=== PATIENT | female | born 1945 | race Caucasian/White ===

== ENCOUNTER 2019-12-25 13:06 | Outpatient (CLI) | payer MEDICARE, SELFPAY ==
[2019-12-25 14:04] LABS: Basophils Absolute Auto 0.1 K/mm3 (0.0-0.1); Eosinophils Absolute Auto 0.2 K/mm3 (0-0.3); Hematocrit 40.3 % (37.0-47.0); Immature Granulocyte Absolute 0.01 K/mm3 (0.00-0.031); Immature Granulocyte Percent A 0.2 % (0-0.5); Lymphocytes Absolute Auto 0.86 K/mm3 (0.9-3.2); Lymphocytes Percent Auto 17.4 % (18.3-44.2); Mean Corpuscular HGB Conc 32.3 g/dl (32-36); Mean Corpuscular Hemoglobin 28.4 pg (26-34); Mean Corpuscular Volume 88.2 fl (80-100); Mean Platelet Volume 11.2 fl (7.4-10.4); Monocytes Absolute Auto 0.5 K/mm3 (0.1-0.6); Monocytes Percent Auto 10.5 % (2.6-8.5); Neutrophils Absolute Auto 3.3 K/mm3 (1.3-6.7); Neutrophils Percent Auto 67.9 % (45.5-73.1); Platelet Count Result 181 k/mm3 (150-375); Red Blood Count 4.57 M/mm3 (4.2-5.4); Red Cell Distribution Width 13.5 % (11.5-14.5); White Blood Count 4.9 K/mm3 (4.5-10.0)
[2019-12-25 14:10] LABS: Total Protein Urine Random 12 mg/dL
[2019-12-25 14:15] LABS: Add Urine Microscopic? YES; Appearance Urine Clear (Clear); Bilirubin Urine Negative (Negative); Blood Urine Negative (Negative); Color Urine Yellow (Yellow); Glucose Urine UA 3+ mg/dL (Negative); Hyaline Casts Urine 50+ /lpf; Ketones Urine Negative (Negative); Leukocyte Esterase Ur 1+ LEU/UL (Negative); Mucus Urine Rare /lpf; Nitrate Urine Negative (Negative); Protein Urine Negative (Negative); RBC Urine 0-2 /hpf (0-2); Specific Grav Ur 1.026 (1.001-1.035); Squamous Epithelial Cell Urine Occasional /hpf (Few); Urobilinogen Urine Negative mg/dL (<2.0); WBC Urine 21-30 /hpf
[2019-12-25 14:17] LABS: Albumin Level 3.9 g/dL (3.5-5.1); Blood Urea Nitrogen 28 mg/dL (7-17); Calcium 9.3 mg/dL (8.4-10.2); Carbon Dioxide 26 mmol/L (22-30); Chloride 99 mmol/L (98-107); Estimated Glomerular Filt Rate 44; Glucose 431 mg/dL (65-105); Phosphorus 3.8 mg/dL (2.5-4.5); Sodium 133 mmol/L (137-145); Uric Acid 3.1 mg/dL (2.5-7.5)
[2019-12-25 14:27] LABS: Parathyroid Intact 30.1 pg/mL (7.5-53.5)
== END 2019-12-25 13:07 | disposition home or self-care (01) ==
DX: N18.3 Chronic kidney disease, stage 3 (moderate) (principal); E11.65 Type 2 diabetes mellitus with hyperglycemia; I50.9 Heart failure, unspecified; I63.9 Cerebral infarction, unspecified; E03.9 Hypothyroidism, unspecified; E55.9 Vitamin D deficiency, unspecified
CPT/HCPCS: 36415; 80069; 81001; 82306; 82570; 83970; 84156; 84550; 85025; 87077; 87086; 87088; 87186

== ENCOUNTER 2020-04-12 16:09 | Outpatient (CLI) | payer MEDICARE, SELFPAY ==
[2020-04-12 16:41] LABS: Basophils Percent Auto 0.7 % (0.2-1.2); Eosinophils Absolute Auto 0.2 K/mm3 (0-0.3); Eosinophils Percent Auto 4.7 % (0-4.4); Hematocrit 40.4 % (37.0-47.0); Hemoglobin 12.7 g/dL (12.0-15.0); Immature Granulocyte Absolute 0.02 K/mm3 (0.00-0.031); Immature Granulocyte Percent A 0.5 % (0-0.5); Lymphocytes Absolute Auto 0.72 K/mm3 (0.9-3.2); Lymphocytes Percent Auto 17.9 % (18.3-44.2); Mean Corpuscular HGB Conc 31.4 g/dl (32-36); Mean Corpuscular Hemoglobin 27.1 pg (26-34); Mean Corpuscular Volume 86.3 fl (80-100); Mean Platelet Volume 11.2 fl (7.4-10.4); Monocytes Absolute Auto 0.4 K/mm3 (0.1-0.6); Monocytes Percent Auto 9.2 % (2.6-8.5); Neutrophils Absolute Auto 2.7 K/mm3 (1.3-6.7); Platelet Count Result 155 k/mm3 (150-375); Red Blood Count 4.68 M/mm3 (4.2-5.4); Red Cell Distribution Width 14.5 % (11.5-14.5)
[2020-04-12 16:46] LABS: Add Urine Microscopic? YES; Amorphous Sediment Urine Few; Appearance Urine Clear (Clear); Bacteria Urine Trace /hpf; Bilirubin Urine Negative (Negative); Blood Urine Negative (Negative); Color Urine Yellow (Yellow); Glucose Urine UA 3+ mg/dL (Negative); Ketones Urine Negative (Negative); Leukocyte Esterase Ur 1+ LEU/UL (Negative); Mucus Urine Rare /lpf; Nitrate Urine Positive (Negative); Protein Urine 1+ mg/dL (Negative); RBC Urine 0-2 /hpf (0-2); Specific Grav Ur 1.018 (1.001-1.035); Squamous Epithelial Cell Urine Occasional /hpf (Few); Urobilinogen Urine Negative mg/dL (<2.0)
[2020-04-12 16:53] LABS: Albumin Level 4.1 g/dL (3.5-5.1); Blood Urea Nitrogen 25 mg/dL (7-17); Calcium 9.1 mg/dL (8.4-10.2); Carbon Dioxide 28 mmol/L (22-30); Chloride 101 mmol/L (98-107); Estimated Glomerular Filt Rate 40; Glucose 354 mg/dL (65-105); Phosphorus 3.8 mg/dL (2.5-4.5); Potassium 4.5 mmol/L (3.4-5.0); Sodium 136 mmol/L (137-145); Uric Acid 4.7 mg/dL (2.5-7.5)
[2020-04-12 17:03] LABS: Creatinine Urine 180.5 mg/dL; Total Protein Urine Random 10 mg/dL
[2020-04-12 17:16] LABS: Parathyroid Intact 54.1 pg/mL (7.5-53.5)
[2020-04-12 18:24] LABS: Vitamin D 25 Hydroxy 73.7 ng/mL
== END 2020-04-12 16:10 | disposition home or self-care (01) ==
DX: E03.9 Hypothyroidism, unspecified (principal); E55.9 Vitamin D deficiency, unspecified; N18.3 Chronic kidney disease, stage 3 (moderate); E11.65 Type 2 diabetes mellitus with hyperglycemia; I50.9 Heart failure, unspecified; I63.9 Cerebral infarction, unspecified
CPT/HCPCS: 36415; 80069; 81001; 82306; 82570; 83970; 84156; 84550; 85025; 87086; 87088; 87147; 87186

== ENCOUNTER 2020-07-23 13:48 | Outpatient (CLI) | payer MEDICARE, SELFPAY ==
[2020-07-23 14:27] LABS: Basophils Percent Auto 0.4 % (0.2-1.2); Eosinophils Absolute Auto 0.2 K/mm3 (0-0.3); Eosinophils Percent Auto 4.3 % (0-4.4); Hematocrit 42.8 % (37.0-47.0); Immature Granulocyte Absolute 0.03 K/mm3 (0.00-0.031); Immature Granulocyte Percent A 0.5 % (0-0.5); Lymphocytes Absolute Auto 1.29 K/mm3 (0.9-3.2); Lymphocytes Percent Auto 22.9 % (18.3-44.2); Mean Corpuscular HGB Conc 32.7 g/dl (32-36); Mean Corpuscular Hemoglobin 28.1 pg (26-34); Mean Corpuscular Volume 85.9 fl (80-100); Monocytes Absolute Auto 0.4 K/mm3 (0.1-0.6); Monocytes Percent Auto 7.8 % (2.6-8.5); Neutrophils Absolute Auto 3.6 K/mm3 (1.3-6.7); Neutrophils Percent Auto 64.1 % (45.5-73.1); Platelet Count Result 138 k/mm3 (150-375); Red Blood Count 4.98 M/mm3 (4.2-5.4); Red Cell Distribution Width 14.6 % (11.5-14.5); White Blood Count 5.6 K/mm3 (4.5-10.0)
[2020-07-23 14:42] LABS: Anion Gap 9 mmol/L (8-16); Blood Urea Nitrogen 33 mg/dL (7-17); Calcium 9.3 mg/dL (8.4-10.2); Carbon Dioxide 31 mmol/L (22-30); Chloride 96 mmol/L (98-107); Estimated Glomerular Filt Rate 40; Glucose 341 mg/dL (65-105); Phosphorus 3.3 mg/dL (2.5-4.5); Potassium 4.2 mmol/L (3.4-5.0); Sodium 136 mmol/L (137-145); Uric Acid 4.1 mg/dL (2.5-7.5)
[2020-07-23 14:43] LABS: Creatinine Urine 208.1 mg/dL; Total Protein Urine Random 11 mg/dL
[2020-07-23 14:49] LABS: Add Urine Microscopic? YES; Amorphous Sediment Urine Few; Appearance Urine Clear (Clear); Bacteria Urine Trace /hpf; Bilirubin Urine Negative (Negative); Blood Urine Negative (Negative); Color Urine Yellow (Yellow); Glucose Urine UA 3+ mg/dL (Negative); Hyaline Casts Urine 30-49 /lpf; Ketones Urine Negative (Negative); Leukocyte Esterase Ur 2+ LEU/UL (Negative); Mucus Urine Rare /lpf; Nitrate Urine Negative (Negative); Protein Urine 1+ mg/dL (Negative); Specific Grav Ur 1.023 (1.001-1.035); Squamous Epithelial Cell Urine Occasional /hpf (Few); WBC Urine 51-75 /hpf
[2020-07-23 15:28] LABS: Parathyroid Intact 60.8 pg/mL (7.5-53.5)
[2020-07-23 15:51] LABS: Vitamin D 25 Hydroxy 68.4 ng/mL
== END 2020-07-23 13:49 | disposition home or self-care (01) ==
DX: E11.22 Type 2 diabetes mellitus with diabetic chronic kidney disease (principal); N18.3 Chronic kidney disease, stage 3 (moderate); E11.65 Type 2 diabetes mellitus with hyperglycemia; I50.9 Heart failure, unspecified; I63.9 Cerebral infarction, unspecified; E03.9 Hypothyroidism, unspecified; E55.9 Vitamin D deficiency, unspecified
CPT/HCPCS: 36415; 80069; 81001; 82306; 82570; 83970; 84156; 84550; 85025; 87077; 87086; 87088; 87186

== ENCOUNTER 2020-10-29 13:20 | Outpatient (CLI) | payer MEDICARE, SELFPAY ==
[2020-10-29 14:01] LABS: Basophils Absolute Auto 0.1 K/mm3 (0.0-0.1); Basophils Percent Auto 0.8 % (0.2-1.2); Eosinophils Absolute Auto 0.2 K/mm3 (0-0.3); Eosinophils Percent Auto 3.4 % (0-4.4); Immature Granulocyte Absolute 0.01 K/mm3 (0.00-0.031); Immature Granulocyte Percent A 0.2 % (0-0.5); Lymphocytes Absolute Auto 1.37 K/mm3 (0.9-3.2); Mean Corpuscular HGB Conc 31.8 g/dl (32-36); Mean Corpuscular Hemoglobin 28.7 pg (26-34); Mean Corpuscular Volume 90.2 fl (80-100); Mean Platelet Volume 12.3 fl (7.4-10.4); Monocytes Absolute Auto 0.5 K/mm3 (0.1-0.6); Monocytes Percent Auto 7.7 % (2.6-8.5); Neutrophils Absolute Auto 4.4 K/mm3 (1.3-6.7); Neutrophils Percent Auto 66.9 % (45.5-73.1); Platelet Count Result 124 k/mm3 (150-375); Red Blood Count 4.88 M/mm3 (4.2-5.4); Red Cell Distribution Width 13.3 % (11.5-14.5); White Blood Count 6.5 K/mm3 (4.5-10.0)
[2020-10-29 14:06] LABS: Add Urine Microscopic? YES; Appearance Urine Clear (Clear); Bacteria Urine Trace /hpf; Bilirubin Urine Negative (Negative); Blood Urine Negative (Negative); Color Urine Straw (Yellow); Glucose Urine UA 3+ mg/dL (Negative); Ketones Urine Negative (Negative); Leukocyte Esterase Ur Trace LEU/UL (Negative); Mucus Urine Rare /lpf; Nitrate Urine Negative (Negative); Protein Urine Negative (Negative); RBC Urine 0-2 /hpf (0-2); Specific Grav Ur 1.015 (1.001-1.035); Squamous Epithelial Cell Urine Rare /hpf (Few); Urobilinogen Urine Negative mg/dL (<2.0)
[2020-10-29 14:11] LABS: Creatinine Urine 26.1 mg/dL; Total Protein Urine Random 12 mg/dL; Ur Ttl Prot Creatinine Ratio 0.46 mg/mg (0-0.20)
[2020-10-29 14:18] LABS: Albumin Level 4.3 g/dL (3.5-5.1); Anion Gap 8 mmol/L (8-16); Blood Urea Nitrogen 21 mg/dL (7-17); Calcium 9.4 mg/dL (8.4-10.2); Carbon Dioxide 30 mmol/L (22-30); Chloride 95 mmol/L (98-107); Estimated Glomerular Filt Rate 44; Glucose 535 mg/dL (65-105); Phosphorus 4.1 mg/dL (2.5-4.5); Potassium 4.6 mmol/L (3.4-5.0); Sodium 133 mmol/L (137-145); Uric Acid 3.2 mg/dL (2.5-7.5)
[2020-10-29 14:26] LABS: Parathyroid Intact 73.3 pg/mL (7.5-53.5)
[2020-10-29 14:33] LABS: Hemoglobin A1C 12.3 % (<5.7)
[2020-10-29 15:43] LABS: Vitamin D 25 Hydroxy 50.9 ng/mL
== END 2020-10-29 13:21 | disposition home or self-care (01) ==
LOC: ANHLAB 13:25
PROVIDERS: Visit Provider Internal Medicine Nephrology
DX: N18.30 Chronic kidney disease, stage 3 unspecified (principal); E11.65 Type 2 diabetes mellitus with hyperglycemia; I50.9 Heart failure, unspecified; I63.9 Cerebral infarction, unspecified; E03.9 Hypothyroidism, unspecified; E55.9 Vitamin D deficiency, unspecified
CPT/HCPCS: 36415; 80069; 81001; 82306; 82570; 83036; 83970; 84156; 84550; 85025

== ENCOUNTER 2020-12-30 08:20 | Emergency (ER) | payer MEDICARE, SELFPAY ==
[2020-12-30] VITALS (14 sets, daily range): BP systolic 99–120; BP diastolic 48–74; PULSE 70–88; RESP 20–22; TEMP 36.8; O2SAT 95–99
--- NOTE | ~2020-12-30 | CT_ITS ---
EXAMINATION: CTA brain carotid EXAM DATE: 12/30/2020 08:37 INDICATION: Right arm hemiparesis. TECHNIQUE: Noncontrast head CT. Spiral CTA of the brain and carotid was performed with intravenous injection 100 cc of Omnipaque 350. Axial, coronal, sagittal reformatted images reviewed. Maximum inte nsity projection 3-D reconstructions of the carotid, cerebral arteries were created by the [address] on dedicated workstation, but there are nondiagnostic. The dose-length product (DLP) for this exa mination was 1562.49 mGy-cm. The exposure was tailored according to patient size, and iterative rec onstruction (ASIR) was used as additional dose reduction technique. Comparison made to prior head C T 08/11/2019 FINDINGS: Moderate size old temporal lobe infarction, small old right frontal, right subinsular, right mesial t emporal, left parietal infarctions. There is no acute intraparenchymal hemorrhage. No evidence of in traparenchymal brain mass lesion. No evidence of acute infarction. There is mild periventricular and subcortical hypodensity, nonspecific but probably related to small vessel ischemic disease. There is moderate prominence of the sulci and ventricles related to cerebral atrophy. There is intracrani al carotid arteriosclerosis. There is no mass effect or midline shift. There is no obstructive hydr ocephalus suspected. There are no extra-axial collections. There are no calvarial acute fractures. Dense contrast within the left subclavian vein and the IVC, and also refluxing up the left internal j ugular vein which could indicate poor right heart function. There is mild left maxillary sinus mucope riosteal thickening. No cervical lymphadenopathy. Moderate cervical spondylosis. Pacemaker/AICD devic e. IMPRESSION: 1. No acute intracranial findings. 2. Multiple old bilateral cerebral infarctions largest in the left temporal lobe. 3. Nondiagnostic CTA brain and carotid. I discussed no acute intracranial findings, and that arteries not evaluated with Greta Archibald MD at 12/30/2020 08:53 [employer]. Patient can be reinjected with repeat imaging if clinically indicated. Reviewed, dictated and finalized at location B. E [employer] OPERATOR IMPRESSION: 1. No acute intracranial findings. 2. Multiple old bilateral cerebral infarctions largest in the left temporal lo be. 3. Nondiagnostic CTA brain and carotid. I discussed no acute intracranial findings, and that arteries not evaluated wit h Greta Archibald MD at 12/30/2020 08:53 [employer] OPERATOR. Patient can be reinjected with repea t imaging if clinically indicated.
--- NOTE | 2020-12-30 08:21 | ECG_ITS ---
Measurements Intervals [place] Rate: 81 P: UT: 0 QRS: 48 QRSD: 106 T: 123 QT: 405 QTc: 473 Interpretive Statements ATRIAL FIBRILLATION VENTRICULAR PREMATURE COMPLEXES LOW QRS VOLTAGE- DIFFUSE LEADS ANTEROSEPTAL INFARCT, AGE INDETERMINATE BORDERLINE ST-T WAVE ABNORMALITY- INF/HIGH LAT LEADS BASELINE ARTIFACT- II, III, AVR, AVL, AVF, V1-V6 ABNORMAL ECG Electronically Signed On 12-30-2020 15:02:32 RECOVERY ROOM RN by Weston Vásquez D.O.
[2020-12-30 08:45] LABS: Glucose Point of Care 293 (65-105)
[2020-12-30 08:54] LABS: Basophils Percent Auto 0.5 % (0.2-1.2); Eosinophils Absolute Auto 0.2 K/mm3 (0-0.3); Eosinophils Percent Auto 3.3 % (0-4.4); Hematocrit 31.7 % (37.0-47.0); Hemoglobin 9.7 g/dL (12.0-15.0); Immature Granulocyte Absolute 0.01 K/mm3 (0.00-0.031); Immature Granulocyte Percent A 0.2 % (0-0.5); Lymphocytes Absolute Auto 1.34 K/mm3 (0.9-3.2); Lymphocytes Percent Auto 22.1 % (18.3-44.2); Mean Corpuscular HGB Conc 30.6 g/dl (32-36); Mean Corpuscular Hemoglobin 28.9 pg (26-34); Mean Corpuscular Volume 94.3 fl (80-100); Monocytes Absolute Auto 0.6 K/mm3 (0.1-0.6); Neutrophils Absolute Auto 3.9 K/mm3 (1.3-6.7); Neutrophils Percent Auto 63.9 % (45.5-73.1); Platelet Count Result 164 k/mm3 (150-375); Red Blood Count 3.36 M/mm3 (4.2-5.4); Red Cell Distribution Width 14.6 % (11.5-14.5); White Blood Count 6.1 K/mm3 (4.5-10.0)
--- NOTE | 2020-12-30 08:57 | ED.NEUROSD ---
HPI - Neuro Symptoms/Deficit General Chief Complaint: Suspected CVA Stated Complaint: ?CVA Time Seen by Provider: 12/30/20 08:24 Source: patient History of Present Illness HPI Narrative: Patient is a 75 y/o female complaining of difficulty with speech and right sided weakness starting 1-2 hours ago. She states that she felt fine when she went to bathroom around 7:30 AM by herself. However, after she went to the bathroom, she had trouble talking and felt right sided weakness. She was not able to get up from the commode around 8:00. Her son went to help her get up and called EMS. Son states that he noticed patient was dragging her right leg. She had previous history of stroke. She has history of Afib. She was on Eliquis according to previous records from this hospital, but she is not sure whether she is still taking it. Related Data Home Medications Medication Instructions Recorded Confirmed atorvastatin 40 mg PO DAILY 12/30/20 12/30/20 furosemide 40 mg PO BID 12/30/20 12/30/20 gabapentin 300 mg PO BID 12/30/20 12/30/20 levothyroxine 25 mcg PO DAILY 12/30/20 12/30/20 metoprolol succinate 50 mg PO DAILY 12/30/20 12/30/20 mexiletine 300 mg PO Q8H 12/30/20 12/30/20 sacubitril-valsartan [Entresto] 1 tablet PO BID 12/30/20 12/30/20 spironolactone 12.5 mg PO DAILY 12/30/20 12/30/20 Allergies Allergy/AdvReac Type Severity Reaction Status Date / Time diphenhydramine Allergy Intermediate PSYCHOSIS Verified 12/30/20 08:47 promethazine AdvReac Mild upset Verified 12/30/20 08:47 stomach Review of Systems Constitutional: Constitutional: Denies chills, Denies fever(s), Denies headache(s) and Denies weakness Eyes: Eyes: Denies blurry vision ENT: Denies headache(s) and Denies neck pain Cardiovascular: Cardiovascular: Denies chest pain and Denies dyspnea Respiratory: Respiratory: Denies cough and Denies dyspnea Gastrointestinal: Gastrointestinal: Denies abdominal pain, Denies diarrhea, Denies nausea and Denies vomiting Genitourinary: Genitourinary: Denies hematuria and Denies dysuria Musculoskeletal: Musculoskeletal: Denies back pain and Denies neck pain Neurologic: Reports Abnormal speech present, Denies headache(s) and Reports weakness PMFSH Social History Social History Gender identity (if verbalized by the patient): Female Exam Const: General: no acute distress and well developed Orientation/consciousness: oriented to person, oriented to place, oriented to time and patient oriented x3 HENMT: Head: normocephalic Ears: external ears normal General nose exam: Normal external nose present Eyes: General: appearance normal, both eyes and all related structures Conjunctivae: conjunctivae normal Neck: Neck: normal visual inspection and full ROM Chest: Chest palpation & inspection: normal inspection of the chest and no tenderness Resp: Effort & Inspection: normal respiratory effort Auscultation: clear to auscultation bilaterally Cardio: Rate: regular rate Rhythm: regular rhythm GI: GI Palp: No abdominal tenderness and Yes Soft to palpation Skin: General skin exam: normal color and turgor normal Neuro: General: oriented to person, oriented to place, oriented to time and patient oriented x3 Cognition (Neuro): normal cognition Speech: dysarthria Motor exam (neuro): Other motor observations present (right sided weakness) Extrem: General: normal to inspection, full ROM and no pedal edema Psych: Appearance: grossly normal Mental Status: mental status grossly normal Affect: normal affect Course Reevaluation(s) Reevaluation #1: Son reports that patient was taken off Eliquis 1 year due to unspecified bleeding after he communicated with his sister. Date: 12/30/20 Time: 09:05 Reevaluation #2: Discussed with patient and son about tPA for presumed stroke. Informed them of benefits and risks. The risks may include internal bleeding with possible 5-6% chance intracranial bleed, anaphylactic reaction, etc. They agree to
[2020-12-30 09:04] LABS: INR 1.2; Prothrombin Time 15.8 Seconds (11.1-14.7)
[2020-12-30 09:05] LABS: Partial Thromboplastin Time 34.1 SECONDS (22.3-36.8)
[2020-12-30 09:06] LABS: Alanine Aminotransferase 11 U/L (4-35); Albumin Level 3.1 g/dL (3.5-5.1); Alkaline Phosphatase 91 U/L (38-126); Anion Gap 4 mmol/L (8-16); Aspartate Amino Transferase 19 U/L (14-36); Bilirubin,Total 0.7 mg/dL (0.2-1.3); Blood Urea Nitrogen 32 mg/dL (7-17); Calcium 8.2 mg/dL (8.4-10.2); Carbon Dioxide 27 mmol/L (22-30); Chloride 105 mmol/L (98-107); Estimated Glomerular Filt Rate 34; Glucose 279 mg/dL (65-105); Potassium 4.6 mmol/L (3.4-5.0); Sodium 136 mmol/L (137-145)
[2020-12-30] MEDS: SODIUM CHLORIDE 0.9% IV 1,000 ML 999 ML IV CONT (09:57)
--- NOTE | 2020-12-30 10:54 | PC.NURSE ---
contacted [facility] to transfer patient to [facility]. Madrigal eta 15 min
--- NOTE | 2020-12-30 11:15 | PC.NURSE ---
[facility] has arrived
== END 2020-12-30 11:20 | disposition short-term general hospital (02) ==
PROVIDERS: Emergency Provider Emergency Medicine
DX: I63.9 Cerebral infarction, unspecified (principal); R29.707 NIHSS score 7; I48.91 Unspecified atrial fibrillation; I49.3 Ventricular premature depolarization; R94.31 Abnormal electrocardiogram [ECG] [EKG]
CPT/HCPCS: 36415; 37195; 70496; 70498; 80053; 82948; 85025; 85610; 85730; 93005; 96360; 99285; J2997; J7030; Q9967

== ENCOUNTER 2021-05-30 14:49 | Outpatient (CLI) | payer MEDICARE, SELFPAY ==
[2021-05-31 07:34] LABS: Basophils Percent Auto 0.6 % (0.2-1.2); Eosinophils Absolute Auto 0.1 K/mm3 (0-0.3); Eosinophils Percent Auto 2.4 % (0-4.4); Hematocrit 43.4 % (37.0-47.0); Hemoglobin 12.7 g/dL (12.0-15.0); Lymphocytes Absolute Auto 1.23 K/mm3 (0.9-3.2); Lymphocytes Percent Auto 26.3 % (18.3-44.2); Mean Corpuscular HGB Conc 29.3 g/dl (32-36); Mean Corpuscular Hemoglobin 26.6 pg (26-34); Mean Corpuscular Volume 90.8 fl (80-100); Mean Platelet Volume 12.2 fl (7.4-10.4); Monocytes Absolute Auto 0.3 K/mm3 (0.1-0.6); Monocytes Percent Auto 6.6 % (2.6-8.5); Neutrophils Percent Auto 64.1 % (45.5-73.1); Platelet Count Result 147 k/mm3 (150-375); Red Blood Count 4.78 M/mm3 (4.2-5.4); Red Cell Distribution Width 19.1 % (11.5-14.5); White Blood Count 4.7 K/mm3 (4.5-10.0)
[2021-05-31 07:38] LABS: Albumin Level 4.3 g/dL (3.5-5.1); Anion Gap 16 mmol/L (8-16); Blood Urea Nitrogen 17 mg/dL (7-17); Calcium 9.6 mg/dL (8.4-10.2); Carbon Dioxide 26 mmol/L (22-30); Chloride 98 mmol/L (98-107); Estimated Glomerular Filt Rate 40; Glucose 159 mg/dL (65-110); Phosphorus 3.4 mg/dL (2.5-4.5); Sodium 140 mmol/L (137-145)
[2021-05-31 08:38] LABS: Acanthocytes 3+ (NORMAL); Ovalocytes 1+ (NORMAL); Platelet Estimate Adequate (Adequate); Poikilocytosis 1+ (NORMAL)
== END 2021-05-30 14:50 | disposition home or self-care (01) ==
LOC: ANHLAB 14:53
DX: N18.30 Chronic kidney disease, stage 3 unspecified (principal); E11.65 Type 2 diabetes mellitus with hyperglycemia; I50.9 Heart failure, unspecified; I63.9 Cerebral infarction, unspecified; E03.9 Hypothyroidism, unspecified; E55.9 Vitamin D deficiency, unspecified
CPT/HCPCS: 36415; 80069; 82306; 83970; 84550; 85025

== ENCOUNTER 2021-05-31 12:10 | Outpatient (CLI) | payer MEDICARE, SELFPAY ==
[2021-05-31 12:43] LABS: Creatinine Urine 189.5 mg/dL; Total Protein Urine Random 23 mg/dL; Ur Ttl Prot Creatinine Ratio 0.12 mg/mg (0-0.20)
[2021-05-31 12:52] LABS: Add Urine Microscopic? YES; Appearance Urine Clear (Clear); Bacteria Urine 3+ /hpf; Bilirubin Urine Negative (Negative); Blood Urine Negative (Negative); Calcium Oxalate Crystals Urine Present /hpf; Color Urine Amber (Yellow); Glucose Urine UA Negative (Negative); Ketones Urine Negative (Negative); Leukocyte Esterase Ur 2+ LEU/UL (Negative); Mucus Urine Rare /lpf; Nitrate Urine Negative (Negative); Protein Urine 1+ mg/dL (Negative); Specific Grav Ur 1.017 (1.001-1.035); Squamous Epithelial Cell Urine Rare /hpf (Few)
== END 2021-05-31 12:11 | disposition home or self-care (01) ==
LOC: ANHLAB 12:16
DX: N18.30 Chronic kidney disease, stage 3 unspecified (principal); E11.65 Type 2 diabetes mellitus with hyperglycemia; I50.9 Heart failure, unspecified; I63.9 Cerebral infarction, unspecified; E03.9 Hypothyroidism, unspecified; E55.9 Vitamin D deficiency, unspecified
CPT/HCPCS: 81001; 82570; 84156; 87077; 87086; 87186

== ENCOUNTER 2021-10-01 14:52 | Outpatient (CLI) | payer MEDICARE, SELFPAY ==
[2021-10-01 15:53] LABS: Eosinophils Absolute Auto 0.1 K/mm3 (0-0.3); Eosinophils Percent Auto 3.1 % (0-4.4); Hematocrit 42.6 % (37.0-47.0); Lymphocytes Absolute Auto 1.11 K/mm3 (0.9-3.2); Lymphocytes Percent Auto 28.9 % (18.3-44.2); Mean Corpuscular HGB Conc 30.5 g/dl (32-36); Mean Corpuscular Hemoglobin 27.3 pg (26-34); Mean Corpuscular Volume 89.5 fl (80-100); Monocytes Absolute Auto 0.4 K/mm3 (0.1-0.6); Monocytes Percent Auto 9.9 % (2.6-8.5); Neutrophils Absolute Auto 2.2 K/mm3 (1.3-6.7); Neutrophils Percent Auto 57.1 % (45.5-73.1); Platelet Count Result 145 k/mm3 (150-375); Red Blood Count 4.76 M/mm3 (4.2-5.4); White Blood Count 3.8 K/mm3 (4.5-10.0)
[2021-10-01 16:00] LABS: Add Urine Microscopic? YES; Appearance Urine Clear (Clear); Bacteria Urine 2+ /hpf; Bilirubin Urine Negative (Negative); Blood Urine Negative (Negative); Color Urine Yellow (Yellow); Glucose Urine UA 3+ mg/dL (Negative); Ketones Urine Negative (Negative); Leukocyte Esterase Ur Trace LEU/UL (Negative); Nitrate Urine Positive (Negative); Protein Urine Negative (Negative); Squamous Epithelial Cell Urine Few /hpf (Few); WBC Urine 21-30 /hpf
[2021-10-01 16:30] LABS: Alanine Aminotransferase 9 U/L (4-35); Alkaline Phosphatase 79 U/L (38-126); Anion Gap 12 mmol/L (8-16); Aspartate Amino Transferase 20 U/L (14-36); Bilirubin,Total 1.4 mg/dL (0.2-1.3); Blood Urea Nitrogen 15 mg/dL (7-17); Calcium 9.3 mg/dL (8.4-10.2); Carbon Dioxide 24 mmol/L (22-30); Chloride 105 mmol/L (98-107); Estimated Glomerular Filt Rate 34; Glucose 205 mg/dL (65-110); Magnesium 2.4 mg/dL (1.6-2.3); Potassium 4.4 mmol/L (3.4-5.0); Sodium 141 mmol/L (137-145)
[2021-10-01 16:40] LABS: NT Pro B Type Natriuretic Pept 4550 pg/mL (5-100); Parathyroid Intact 84.5 pg/mL (7.5-53.5)
[2021-10-01 16:43] LABS: Specific Grav Ur 1.032 (1.001-1.035)
[2021-10-01 18:11] LABS: Erythrocyte Sedimentation Rate 6 mm/hr (0-20)
[2021-10-01 19:24] LABS: Hemoglobin A1C 9.1 % (<5.7)
[2021-10-05 11:40] LABS: Vitamin D 1,25 (OH)2 Total 14 pg/mL (18-72); Vitamin D2 1,25 (OH)2 <8 pg/mL; Vitamin D3 1,25 (OH)2 14 pg/mL
== END 2021-10-01 14:53 | disposition home or self-care (01) ==
PROVIDERS: PCP Nurse Practitioner Family; Referring Provider Internal Medicine Cardiovascular Disease
DX: R79.89 Other specified abnormal findings of blood chemistry (principal); R68.89 Other general symptoms and signs; E79.0 Hyperuricemia without signs of inflammatory arthritis and tophaceous disease; E55.9 Vitamin D deficiency, unspecified; R70.0 Elevated erythrocyte sedimentation rate; E21.3 Hyperparathyroidism, unspecified; N39.0 Urinary tract infection, site not specified; E61.2 Magnesium deficiency; N18.30 Chronic kidney disease, stage 3 unspecified; E11.65 Type 2 diabetes mellitus with hyperglycemia; I50.9 Heart failure, unspecified; I63.9 Cerebral infarction, unspecified; E03.9 Hypothyroidism, unspecified
CPT/HCPCS: 36415; 80053; 81001; 82652; 83036; 83735; 83880; 83970; 84550; 85025; 85652; 87077; 87086; 87186

== ENCOUNTER 2021-12-23 09:34 | Outpatient (CLI) | payer MEDICARE, SELFPAY ==
[2021-12-23 10:21] LABS: Basophils Absolute Auto 0.1 K/mm3 (0.0-0.1); Basophils Percent Auto 1.6 % (0.2-1.2); Eosinophils Absolute Auto 0.1 K/mm3 (0-0.3); Eosinophils Percent Auto 3.7 % (0-4.4); Hematocrit 46.7 % (37.0-47.0); Hemoglobin 12.8 g/dL (12.0-15.0); Immature Granulocyte Absolute 0.02 K/mm3 (0.00-0.031); Immature Granulocyte Percent A 0.5 % (0-0.5); Lymphocytes Absolute Auto 0.94 K/mm3 (0.9-3.2); Lymphocytes Percent Auto 25.1 % (18.3-44.2); Mean Corpuscular HGB Conc 27.4 g/dl (32-36); Mean Corpuscular Hemoglobin 26.1 pg (26-34); Mean Corpuscular Volume 95.3 fl (80-100); Mean Platelet Volume 11.3 fl (7.4-10.4); Monocytes Absolute Auto 0.4 K/mm3 (0.1-0.6); Monocytes Percent Auto 9.9 % (2.6-8.5); Neutrophils Absolute Auto 2.2 K/mm3 (1.3-6.7); Neutrophils Percent Auto 59.2 % (45.5-73.1); Platelet Count Result 156 k/mm3 (150-375); Red Cell Distribution Width 18.6 % (11.5-14.5); White Blood Count 3.7 K/mm3 (4.5-10.0)
[2021-12-23 10:25] LABS: Add Urine Microscopic? YES; Appearance Urine Clear (Clear); Bacteria Urine Trace /hpf; Bilirubin Urine Negative (Negative); Blood Urine Negative (Negative); Color Urine Yellow (Yellow); Glucose Urine UA 3+ mg/dL (Negative); Ketones Urine Negative (Negative); Leukocyte Esterase Ur Negative LEU/UL (Negative); Mucus Urine Rare /lpf; Nitrate Urine Negative (Negative); Protein Urine 2+ mg/dL (Negative); Specific Grav Ur 1.024 (1.001-1.035); Squamous Epithelial Cell Urine Occasional /hpf (Few)
[2021-12-23 10:33] LABS: Alanine Aminotransferase 9 U/L (4-35); Albumin Level 3.9 g/dL (3.5-5.1); Alkaline Phosphatase 77 U/L (38-126); Anion Gap 7 mmol/L (8-16); Aspartate Amino Transferase 22 U/L (14-36); Bilirubin,Total 1.4 mg/dL (0.2-1.3); Blood Urea Nitrogen 16 mg/dL (7-17); Carbon Dioxide 24 mmol/L (22-30); Chloride 109 mmol/L (98-107); Estimated Glomerular Filt Rate 40; Glucose 167 mg/dL (65-110); Potassium 4.3 mmol/L (3.4-5.0); Sodium 140 mmol/L (137-145); Uric Acid 3.6 mg/dL (2.5-7.5)
[2021-12-23 10:39] LABS: Hypochromasia 1+ (NORMAL); Ovalocytes 2+ (NORMAL); Platelet Estimate Adequate (Adequate)
[2021-12-23 10:41] LABS: Erythrocyte Sedimentation Rate 1 mm/hr (0-20)
[2021-12-23 10:45] LABS: Parathyroid Intact 46.5 pg/mL (7.5-53.5)
[2021-12-23 10:54] LABS: Hemoglobin A1C 8.6 % (<5.7)
[2021-12-23 11:30] LABS: Free T4 Free Thyroxine 1.37 ng/mL (0.78-2.19)
[2021-12-26 08:38] LABS: Vitamin D 1,25 (OH)2 Total 9 pg/mL (18-72); Vitamin D2 1,25 (OH)2 <8 pg/mL; Vitamin D3 1,25 (OH)2 9 pg/mL
== END 2021-12-23 09:35 | disposition home or self-care (01) ==
PROVIDERS: PCP Nurse Practitioner Family
DX: N18.30 Chronic kidney disease, stage 3 unspecified (principal); E11.65 Type 2 diabetes mellitus with hyperglycemia; I50.9 Heart failure, unspecified; I63.9 Cerebral infarction, unspecified; E03.9 Hypothyroidism, unspecified; E55.9 Vitamin D deficiency, unspecified
CPT/HCPCS: 36415; 80053; 81001; 82652; 83036; 83970; 84439; 84481; 84550; 85025; 85652; 87077; 87086; 87088

== ENCOUNTER 2022-01-14 15:34 | Inpatient (IN) | payer MEDICARE, SELFPAY ==
--- NOTE | ~2022-01-14 | NM_ITS ---
EXAMINATION: NM hepatobiliary w pharm DATE: 01/19/2022 14:28 INDICATION: Cholelithiasis. COMPARISON: CT abdomen and pelvis 01/16/2022, ultrasound 01/17/2022 TECHNIQUE: 5.1 mCi Tc-99m mebrofenin (Choletec) was administered intravenously. Scintigraphic images of the abdomen were obtained for one hour. Then, 1.4 mcg sincalide (Kinevac) IV was administered, an d imaging was continued for 30 minutes. FINDINGS: There is delayed clearance of radiotracer from the blood pool. There is homogeneous tracer uptake by the liver. Activity progresses to the bowel and gallbladder. Gallbladder ejection fraction (GBEF) was 12%. Note that most patients with gallbladder dysfunction have GBEF < 35%, which overlaps with the broad normal range of 10-90%. IMPRESSION: 1. Delayed clearance of tracer from the blood pool, consistent with nonspecific hepatocellular dysfu nction. 2. Gallbladder ejection fraction in the lower range of normal. Note that this value overlaps with the range of values that may be seen with gallbladder dysfunction and/or chronic cholecystitis if there is appropriate clinical correlation. Reviewed, dictated and finalized at location A. IMPRESSION: 1. Delayed clearance of tracer from the blood pool, consistent with nonspecifi c hepatocellular dysfunction. 2. Gallbladder ejection fraction in the lower range of normal. Note that this v alue overlaps with the range of values that may be seen with gallbladder dysfun ction and/or chronic cholecystitis if there is appropriate clinical correlation .
--- NOTE | ~2022-01-14 | CT_ITS ---
EXAMINATION: CT abdomen pelvis wo con DATE: 01/16/2022 11:28 INDICATION: Abdominal pain TECHNIQUE: Computed tomography (CT) of the abdomen and pelvis was performed without intravenous contr ast. The dose-length product (DLP) was 1065.66 mGy-cm. Automated exposure control and iterative recon struction technique were employed. COMPARISON: 03/24/2018 FINDINGS: Cardiomegaly is noted. There are trace pleural effusions. There is mild dependent atelectas is. A pacemaker lead ends in the right ventricle. The liver, spleen, pancreas, and adrenal glands are normal. Stones are present in the nondistended gallbladder. Cysts of the kidneys measure up to 1.8 c m on the right. There is calcified atherosclerosis of the aorta and many of the other arteries. No pa thologically enlarged abdominal or pelvic lymph nodes are identified. There is no free intraperitonea l gas or evidence of bowel obstruction. There is a small volume of pelvic ascites. Colonic diverticul osis is present without evidence of diverticulitis. IMPRESSION: 1. No CT correlate for the patient's symptoms. 2. Cholelithiasis. 3. Diverticulosis. Reviewed, dictated and finalized at location B.
--- NOTE | ~2022-01-14 | XR_ITS ---
EXAMINATION: XR elbow LT min 3V EXAM DATE: 01/14/2022 18:51 INDICATION: fall, elbow pain, limited ROM, pain throughout. TECHNIQUE: Left elbow frontal, lateral with flexion, and oblique projections obtained and reviewed. There is no prior study for comparison. FINDINGS: Left elbow anterior humeral line intact. Possible acute closed posttraumatic nondisplaced radial head fracture, indicated on the frontal projection for clinical correlation. The ulna is unrem arkable. IMPRESSION: Possible nondisplaced left radial head fracture. Reviewed, dictated and finalized at location G.
--- NOTE | ~2022-01-14 | CT_ITS ---
EXAMINATION: CT brain wo [facility] EXAM DATE: 01/20/2022 11:22 INDICATION: Dizziness, double vision, paraesthesias. TECHNIQUE: Spiral CT of the head was performed without contrast. Axial, coronal and sagittal images were reviewed. The dose-length product (DLP) for this examination was 605.33 mGy-cm. The exposure w as tailored according to patient size, and iterative reconstruction (ASIR) was used as additional dos e reduction technique. Comparison is made to prior examination from 01/14/2022. FINDINGS: There is moderate size old left temporal lobe infarction. Small old right frontal lobe infa rction and right temporal lobe infarction. Several punctate old left frontoparietal lobe cortical sma ll old left cerebellar infarction. Infarctions. Small old right parietal lobe cortical infarction. Th ere is no acute intraparenchymal hemorrhage. No evidence of intraparenchymal brain mass lesion. No evidence of acute infarction. Please note that initial head CT has limited sensitivity for small or acute infarctions. There is mild to moderate periventricular and subcortical hypodensity, nonspecific but probably related to small vessel ischemic disease. There is mild prominence of the sulci and v entricles related to cerebral atrophy. There is intracranial carotid arteriosclerosis. There are n o extra-axial collections. There is no mass effect or midline shift. The orbits are unremarkable. Soft tissue is unremarkable. The visualized sinuses and mastoid air cells are well aerated. IMPRESSION: 1. No acute intracranial findings. 2. Chronic age related findings. 3. Old cortical, left cerebellar infarctions. Reviewed, dictated and finalized at location B.
--- NOTE | ~2022-01-14 | CT_ITS ---
EXAMINATION: CT cervical spine wo con EXAM DATE: 01/14/2022 17:48 INDICATION: Head injury. TECHNIQUE: Spiral CT of the cervical spine was performed without contrast. Axial images were reviewe d. Coronal and sagittal reformatted images cervical spine were also reviewed. The dose-length produc t (DLP) for this examination was 156.13 mGy-cm. The exposure was tailored according to patient size (auto mA exposure control), and iterative reconstruction (ASIR) was used as additional dose reduction technique. Comparison is made to prior examination from 07/18/2018. FINDINGS: There is no evidence of acute cervical fracture. The odontoid process is intact. Pre-dens space is normal. Prevertebral soft tissue is normal. There are no soft tissue abnormalities identi fied. There is no disc space widening or traumatic vertebral body subluxation suspected. There is mo derate disc disease at C5-6, mild at the other cervical levels. Mild to moderate cervical arthropathy . Pacemaker/AICD device. A detailed level by level evaluation of spondylosis can be added as addendu m if requested. IMPRESSION: 1. No acute cervical fracture. Reviewed, dictated and finalized at location G.
--- NOTE | ~2022-01-14 | XR_ITS ---
EXAMINATION: XR wrist LT 2V EXAM DATE: 01/14/2022 18:51 INDICATION: fall, wrist pain, limited ROM Pain Thoughout Wrist. TECHNIQUE: Left wrist frontal, frontal with ulnar deviation, oblique and lateral projections obtained and reviewed. Comparison is made to prior examination from 07/18/2018. FINDINGS: Left wrist scapholunate joint space is maintained. Bones are osteopenic. Previously seen u lnar styloid and radial metaphyseal fractures have healed. No acute fracture line identified. Mild po lyarticular osteoarthritis. IMPRESSION: 1. No acute left wrist fractures. 2. Osteopenia. 3. Osteoarthritis. Reviewed, dictated and finalized at location G.
--- NOTE | ~2022-01-14 | XR_ITS ---
EXAMINATION: XR foot RT min 3V EXAM DATE: 01/14/2022 18:50 INDICATION: Fall, pain to right 1st MTP TECHNIQUE: Right foot dorsoplantar, lateral and oblique projections obtained and reviewed. There is no prior study for comparison. FINDINGS: Bones are osteopenic. Right metatarsal bones unremarkable. There are no acute fractures or dislocations identified. There is no subcutaneous gas. There are arterial calcifications, arteriosc lerosis. There are no radiopaque foreign bodies. There is mild to moderate polyarticular primary o steoarthritis. Calcaneal spurs. IMPRESSION: Osteopenia. Osteoarthritis. No acute fracture. Reviewed, dictated and finalized at location G.
--- NOTE | ~2022-01-14 | CT_ITS ---
EXAMINATION: CT brain wo [facility] EXAM DATE: 01/14/2022 17:48 INDICATION: [facility] TECHNIQUE: Spiral CT of the head was performed without contrast. Axial, coronal and sagittal images were reviewed. The dose-length product (DLP) for this examination was 605.33 mGy-cm. The exposure w as tailored according to patient size, and iterative reconstruction (ASIR) was used as additional dos e reduction technique. Comparison is made to prior examination from 12/30/2020. FINDINGS: There is small old right frontal lobe infarction. Small old right parietal lobe infarction. Moderate size old left temporal lobe infarction. Small old left parietal lobe infarction. Moderate m icroangiopathy and cerebral atrophy. No evidence of acute infarction. No intraparenchymal hemorrhage, extra-axial collection, obstructive hydrocephalus or brain mass. There is no significant interval ch myriam. The visualized portions of the sinuses and mastoid air cells are well aerated. IMPRESSION: 1. Multiple old cerebral infarctions. 2. Microangiopathy and atrophy. Reviewed, dictated and finalized at location G.
--- NOTE | ~2022-01-14 | XR_ITS ---
EXAMINATION: XR shoulder LT min 2V EXAM DATE: 01/14/2022 16:38 INDICATION: Fall , left shoulder pain. Fracture. Limited range of motion. Initial encounter. TECHNIQUE: Left shoulder frontal, lateral projections.There is no prior study for comparison. FINDINGS: Acute closed posttraumatic mildly displaced fracture of the left humeral neck. No humeral head dislocation. Acromioclavicular joint unremarkable. Pacemaker/AICD device. Cardiomegaly. IMPRESSION: Acute left humeral neck fracture. Reviewed, dictated and finalized at location G.
--- NOTE | ~2022-01-14 | US_ITS ---
EXAMINATION: US venous doppler [facility] DATE: 01/15/2022 10:52 INDICATION: Bilateral lower limb edema TECHNIQUE: Sanchez scale images without and with compression and Doppler images of the bilateral lower e xtremity veins were obtained. COMPARISON: 09/16/2018 FINDINGS: The right common femoral vein, profunda femoral vein, femoral vein, popliteal vein, peroneal trunk, p osterior tibial veins, and greater saphenous vein are patent. The left common femoral vein, profunda femoral vein, femoral vein, popliteal vein, peroneal trunk, po sterior tibial veins, and greater saphenous vein are patent. IMPRESSION: 1. Patent bilateral lower extremity veins. No evidence of deep venous thrombosis. Reviewed, dictated and finalized at location B. IMPRESSION: 1. Patent bilateral lower extremity veins. No evidence of deep venous thrombosi s.
--- NOTE | ~2022-01-14 | US_ITS ---
EXAMINATION: US abdomen limited EXAM DATE: 01/17/2022 14:24 INDICATION: RUQ pain, N/V. TECHNIQUE: Multiple grayscale and Doppler images of the abdomen right upper quadrant were obtained (b y a technologist who performed the scan) and subsequently reviewed. Correlation is made to CT from . FINDINGS: The pancreatic head and body are normal in appearance. The pancreatic tail is not visualized. The l iver has normal echogenicity and contour. There are no focal liver lesions identified. There is no evidence of intrahepatic biliary duct dilation. No right-sided hydronephrosis. There is pulsatility to the portal venous flow with reversal of flow for half of the cardiac cycle. Could be passive veno us congestion from right heart failure correlating with CT scan from yesterday. Also possibility of p ortal hypertension. Common bile duct measures 4 mm, which is normal. The gallbladder wall is normal in thickness, with ex pected amount of distention. No sonographic evidence of pericholecystic fluid. There is cholelithia sis. Technologist performing exam reports patient did not demonstrate sonographic Marquez's sign. P caren note that this sign is less reliable in patients who have received pain medication. IMPRESSION: 1. Pulsatile portal venous flow with reversed flow for half of cardiac cycle; consider right heart f ailure and/or portal hypertension. 2. Cholelithiasis. Reviewed, dictated and finalized at location G. IMPRESSION: 1. Pulsatile portal venous flow with reversed flow for half of cardiac cycle; consider right heart failure and/or portal hypertension. 2. Cholelithiasis.
[2022-01-14 16:05] VITALS: BP 91/70; PULSE 92; RESP 17; TEMP 36.2; O2SAT 95
--- NOTE | 2022-01-14 17:29 | ED.FALL ---
HPI - Fall General Chief Complaint: Fall <Nathalie Mckenzie PA-C - Last Filed: 01/14/22 20:14> Stated Complaint: fall/left arm pain <JIHAN Higuera Last Filed: 01/14/22 20:14> Time Seen by Provider: 01/14/22 17:07 <Nathalie Mckenzie PA-C - Last Filed: 01/14/22 20:14> Source: patient and family <JIHAN Higuera Last Filed: 01/14/22 20:14> Mode of arrival: ambulatory <JIHAN Higuera Last Filed: 01/14/22 20:14> Limitations: no limitations <JIHAN Higuera Last Filed: 01/14/22 20:14> History of Present Illness HPI Narrative: Patient is a 77-year-old female who presents the ED with report of a fall. Patient's daughter at bedside assisted in providing information. She reports the patient fell around 10 AM this morning trying to get out of bed. Patient did hit her head, but denies losing consciousness. She complains of pain to her left shoulder and left arm that has progressively worsened throughout the day, prompting her presentation to the ED. Patient also reports having pain to her right first toe. She has a history of chronic hypotension and reports she feels lightheaded often. Daughter reports blood pressures of 90 systolic are normal for the patient. Patient has a cane and walker at home that she uses for ambulation assistance, but daughter reports she frequently has to hold onto the raya and furniture. Patient denies any focal weakness, chest pain, shortness of breath, nausea, vomiting. Patient has Hx of CHF, HLD, hypotension, AICD/pacemaker. She was recently taken off her Entresto. She is on Eliquis due to history of blood clots, per daughter. <JIHAN Higuera Last Filed: 01/14/22 20:14> Related Data Home Medications: Home Medications Medication Instructions Recorded Confirmed atorvastatin 40 mg PO DAILY 12/30/20 12/30/20 furosemide 40 mg PO BID 12/30/20 12/30/20 gabapentin 300 mg PO BID 12/30/20 12/30/20 levothyroxine 25 mcg PO DAILY 12/30/20 12/30/20 metoprolol succinate 50 mg PO DAILY 12/30/20 12/30/20 mexiletine 300 mg PO Q8H 12/30/20 12/30/20 sacubitril-valsartan [Entresto] 1 tablet PO BID 12/30/20 12/30/20 spironolactone 12.5 mg PO DAILY 12/30/20 12/30/20 <Nathalie Mckenzie PA-C - Last Filed: 01/14/22 20:14> Allergies/Adverse Reactions: Allergies Allergy/AdvReac Type Severity Reaction Status Date / Time diphenhydramine Allergy Intermediate PSYCHOSIS Verified 01/14/22 17:12 promethazine AdvReac Mild upset Verified 01/14/22 17:12 stomach <JIHAN Higuera Last Filed: 01/14/22 20:14> Review of Systems Review of Systems: CONSTITUTIONAL: Denies fever, chills, or sweats. EYES: Denies visual changes. CARDIOVASCULAR: Denies chest pain, palpitations. RESPIRATORY: Denies cough or dyspnea. GASTROINTESTINAL: Denies abdominal pain, nausea, vomiting, or diarrhea. MUSCULOSKELETAL: Reports pain to left shoulder, left arm, right first toe. Denies back pain. NEUROLOGIC: Reports lightheadedness due to chronic hypotension. Denies headache, numbness, or focal weakness. <Nathalie Mckenzie PA-C - Last Filed: 01/14/22 20:14> All systems reviewed & are unremarkable except as noted in HPI and below <JIHAN Higuera Last Filed: 01/14/22 20:14> [facility] Past Medical History Medical History: Medical History Congestive heart failure Diabetes mellitus Hyperlipidemia Hypotension Pacemaker <JIHAN Higuera Last Filed: 01/14/22 20:14> Surgical History Surgical History: Surgical History AICD (automatic cardioverter/defibrillator) present <Nathalie Mckenzie PA-C - Last Filed: 01/14/22 20:14> Social History Social History: Social History Smoking status: Never smoker Gender identity (if verbalized by the patient): Female <Rache
[2022-01-14 19:14] VITALS: BP 89/56; PULSE 84; RESP 18; O2SAT 100
--- NOTE | 2022-01-14 19:14 | PC.NURSE ---
Assuming care of pt.
[2022-01-14 20:03] LABS: SARS-CoV-2 RNA PCR Negative
--- NOTE | 2022-01-14 21:19 | PM.IMHP ---
H&P: HPI History of Present Illness Date/Time: 01/14/22 21:19 Chief Complaint: 77 years old female with past medical history of CHF status post AICD on Entresto associated with chronic hypertension chronic AFib on Eliquis metoprolol presented to the hospital with mechanical fall without loss of consciousness chest pain or shortness of breath patient has fall when she was trying to get out of the bed side complained of shoulder pain and elbow pain worsening gradually throughout the day patient came to the ER was found to have left femoral neck fracture left radial head fracture admitted for further evaluation and treatment with orthopedic consult Review of Systems Review of Systems: All systems reviewed & are unremarkable except as noted in HPI and below PMFSH Past Medical History Medical History Congestive heart failure Diabetes mellitus Hyperlipidemia Hypotension Pacemaker Surgical History Surgical History AICD (automatic cardioverter/defibrillator) present Social History Social History Smoking status: Never smoker Gender identity (if verbalized by the patient): Female Meds Home Medications and Allergies Home Medications Medication Instructions Recorded Confirmed Type atorvastatin 40 mg PO DAILY 12/30/20 12/30/20 History furosemide 40 mg PO BID 12/30/20 12/30/20 History gabapentin 300 mg PO BID 12/30/20 12/30/20 History levothyroxine 25 mcg PO DAILY 12/30/20 12/30/20 History metoprolol succinate 50 mg PO DAILY 12/30/20 12/30/20 History mexiletine 300 mg PO Q8H 12/30/20 12/30/20 History sacubitril-valsartan [Entresto] 1 tablet PO BID 12/30/20 12/30/20 History spironolactone 12.5 mg PO DAILY 12/30/20 12/30/20 History Allergies Allergy/AdvReac Type Severity Reaction Status Date / Time diphenhydramine Allergy Intermediate PSYCHOSIS Verified 01/14/22 17:12 promethazine AdvReac Mild upset Verified 01/14/22 17:12 stomach Vital Signs Vital Signs - 24 hr 01/14/22 16:05 01/14/22 19:14 Temperature 97.2 F L Pulse Rate 92 84 Respiratory Rate 17 18 Blood Pressure 91/70 L 89/56 L Pulse Oximetry 95 100 Exam Narrative: Const: General: no acute distress Nutritional Appearance: obese Orientation/consciousness: patient oriented x3 HENMT: Head: normal to inspection Eyes: Conjunctivae: conjunctivae normal Pupils: Equal, round and reactive pupils present Neck: Neck: normal visual inspection Chest: Chest palpation & inspection: normal inspection of the chest Resp: Effort & Inspection: normal respiratory effort Auscultation: clear to auscultation bilaterally Cardio: Rate: regular rate Rhythm: regular rhythm GI: GI Palp: Yes Soft to palpation, No Tenderness to palpation present (GI) and No Guarding due to palpation present (GI) Auscultation: normal bowel sounds Back/Spine/Pelvis: Back: no CVA tenderness Skin: General skin exam: normal color Neuro: General: patient oriented x3 Musculoskeletal: Positive left elbow tenderness positive left shoulder tender and decreased range of motion Assessment and Plan Assessment and plan (1) Fracture of neck of humerus: Qualifiers: Encounter type: initial encounter Fracture type: closed Laterality: left Qualified Code(s): S42.212A - Unspecified displaced fracture of surgical neck of left humerus, initial encounter for closed fracture Code(s): S42.213A - Unspecified displaced fracture of surgical neck of unspecified humerus, initial encounter for closed fracture Status: Acute Assessment and Plan: Reviewed shoulder x-ray Pain control Orthopedic consult NPO after midnight Hold Eliquis for now pending surgery evaluation (2) Fracture of radial head, left, closed: Qualifiers: Encounter type: initial encounter Fracture alignmen
[2022-01-14 22:02] VITALS: BP 96/67; PULSE 96
[2022-01-14 22:03] VITALS: BP 147/121; PULSE 91
[2022-01-14] MEDS: fentaNYL CITRATE INJ (*CRX) 100 MCG/2 ML VIAL 25 MCG IV PUSH (22:24)
[2022-01-14 23:00] VITALS: BP 102/56; PULSE 87; RESP 18; O2SAT 96
[2022-01-14] MEDS: SODIUM CHLORIDE 0.9% IV 1,000 ML 100 ML IV CONT (23:46)
[2022-01-15] VITALS (8 sets, daily range): BP systolic 95–108; BP diastolic 58–88; PULSE 80–106; RESP 14–20; TEMP 35.8–37.3; O2SAT 96–100
[2022-01-15 00:56] LABS: Basophils Percent Auto 0.6 % (0.2-1.2); Eosinophils Absolute Auto 0.1 K/mm3 (0-0.3); Eosinophils Percent Auto 1.3 % (0-4.4); Hematocrit 46.8 % (37.0-47.0); Hemoglobin 13.3 g/dL (12.0-15.0); Immature Granulocyte Absolute 0.01 K/mm3 (0.00-0.031); Immature Granulocyte Percent A 0.2 % (0-0.5); Immature Platelet Fraction Pct 5.5 % (0.9-11.2); Lymphocytes Absolute Auto 0.68 K/mm3 (0.9-3.2); Lymphocytes Percent Auto 14.6 % (18.3-44.2); Mean Corpuscular HGB Conc 28.4 g/dl (32-36); Mean Corpuscular Volume 91.4 fl (80-100); Mean Platelet Volume 10.7 fl (7.4-10.4); Monocytes Absolute Auto 0.4 K/mm3 (0.1-0.6); Monocytes Percent Auto 8.8 % (2.6-8.5); Neutrophils Absolute Auto 3.5 K/mm3 (1.3-6.7); Neutrophils Percent Auto 74.5 % (45.5-73.1); Platelet Count Result 122 k/mm3 (150-375); Red Blood Count 5.12 M/mm3 (4.2-5.4); Red Cell Distribution Width 19.8 % (11.5-14.5); White Blood Count 4.7 K/mm3 (4.5-10.0)
[2022-01-15 00:58] LABS: Alanine Aminotransferase 13 U/L (4-35); Albumin Level 3.9 g/dL (3.5-5.1); Alkaline Phosphatase 75 U/L (38-126); Anion Gap 11 mmol/L (8-16); Aspartate Amino Transferase 30 U/L (14-36); Bilirubin,Total 2.2 mg/dL (0.2-1.3); Blood Urea Nitrogen 14 mg/dL (7-17); Calcium 8.8 mg/dL (8.4-10.2); Carbon Dioxide 19 mmol/L (22-30); Chloride 107 mmol/L (98-107); Creatine Kinase 152 U/L (30-135); Estimated CRCL calculation 34 ml/min; Estimated Glomerular Filt Rate 44; Glucose 284 mg/dL (65-110); Potassium 4.2 mmol/L (3.4-5.0); Sodium 137 mmol/L (137-145)
[2022-01-15 01:12] LABS: Anisocytosis 1+ (NORMAL); Hypochromasia 1+ (NORMAL); Platelet Estimate Adequate (Adequate)
[2022-01-15 06:48] LABS: Basophils Percent Auto 0.4 % (0.2-1.2); Eosinophils Absolute Auto 0.1 K/mm3 (0-0.3); Eosinophils Percent Auto 1.6 % (0-4.4); Hematocrit 41.1 % (37.0-47.0); Hemoglobin 11.9 g/dL (12.0-15.0); Immature Granulocyte Absolute 0.01 K/mm3 (0.00-0.031); Immature Granulocyte Percent A 0.2 % (0-0.5); Lymphocytes Absolute Auto 0.78 K/mm3 (0.9-3.2); Lymphocytes Percent Auto 15.6 % (18.3-44.2); Mean Corpuscular Volume 89.7 fl (80-100); Mean Platelet Volume 12.7 fl (7.4-10.4); Monocytes Absolute Auto 0.6 K/mm3 (0.1-0.6); Monocytes Percent Auto 12.2 % (2.6-8.5); Neutrophils Absolute Auto 3.5 K/mm3 (1.3-6.7); Platelet Count Result 124 k/mm3 (150-375); Red Blood Count 4.58 M/mm3 (4.2-5.4); Red Cell Distribution Width 19.5 % (11.5-14.5)
[2022-01-15 07:00] LABS: Alanine Aminotransferase 12 U/L (4-35); Albumin Level 3.4 g/dL (3.5-5.1); Alkaline Phosphatase 68 U/L (38-126); Anion Gap 9 mmol/L (8-16); Aspartate Amino Transferase 24 U/L (14-36); Bilirubin,Total 1.8 mg/dL (0.2-1.3); Blood Urea Nitrogen 15 mg/dL (7-17); Calcium 8.4 mg/dL (8.4-10.2); Carbon Dioxide 20 mmol/L (22-30); Chloride 109 mmol/L (98-107); Estimated CRCL calculation 34 ml/min; Estimated Glomerular Filt Rate 44; Glucose 217 mg/dL (65-110); Potassium 4.1 mmol/L (3.4-5.0); Sodium 138 mmol/L (137-145)
[2022-01-15] MEDS: HEPARIN SODIUM 5,000 UNITS/ML VIAL 5000 UNITS SUB-Q ×2 (08:37→20:14)
--- NOTE | 2022-01-15 09:51 | PM.IMPN ---
Progress Note: A&P Assessment and Plan (1) Fracture of neck of humerus: Qualifiers: Encounter type: initial encounter Fracture type: closed Laterality: left Qualified Code(s): S42.212A - Unspecified displaced fracture of surgical neck of left humerus, initial encounter for closed fracture Code(s): S42.213A - Unspecified displaced fracture of surgical neck of unspecified humerus, initial encounter for closed fracture Status: Acute Assessment and Plan: -Reviewed shoulder x-ray -Pain control -Orthopedic consult -Hold Eliquis for now pending surgery evaluation (2) Fracture of radial head, left, closed: Qualifiers: Encounter type: initial encounter Fracture alignment: nondisplaced Qualified Code(s): S52.125A - Nondisplaced fracture of head of left radius, initial encounter for closed fracture Code(s): S52.122A - Displaced fracture of head of left radius, initial encounter for closed fracture Status: Acute Assessment and Plan: -Pain control -Orthopedic consult -Hold Eliquis for now pending orthopedic surgery evaluation (3) AICD (automatic cardioverter/defibrillator) present: Code(s): Z95.810 - Presence of automatic (implantable) cardiac defibrillator Status: Acute Assessment and Plan: -Pacemaker check ordered (4) Hyperlipidemia: Code(s): E78.5 - Hyperlipidemia, unspecified Status: Acute Assessment and Plan: -Pending home medication patient on statin at home (5) Hypotension: Code(s): I95.9 - Hypotension, unspecified Status: Acute Assessment and Plan: -Chronic most likely related to CHF Entresto, metoprolol -continue to monitor (6) Congestive heart failure: Code(s): I50.9 - Heart failure, unspecified Status: Acute Assessment and Plan: -Stable avoid fluid overload -Pending reconciliation of home medication (7) Chronic a-fib: Code(s): I48.20 - Chronic atrial fibrillation, unspecified Status: Acute Assessment and Plan: -Patient on Eliquis at home hold for possible surgical intervention -Patient on metoprolol at home pending confirmation of home medication -Home medication was not ordered at it was not confirmed yet Additional Plan placement for rehab vs home with daughter to care for her??? Subjective Date/time seen: 01/15/22 09:51 Interval history: 77 yo female w/ hx of CHF s/p AICD, HTN, afib, DM, HLD, CVA, admitted for mechanical fall and L femoral neck fracture and L radial head fx. Pt is feeling okay. Has quite a bit of pain with movement of the LUE. Seen by ortho this morning, apparently no surgery will be completed. She denies cp, sob. Has BLE edema, she thinks this is new. No N/V/abd pain. No GUILLERMO, dizziness, vision changes, paraesthesias. She is A/Ox3 but sometimes gets confused during casual conversation, states this is normal for her as she has had two strokes. Review of Systems Review of Systems: All systems reviewed & are unremarkable except as noted in HPI and below Exam Narrative: General: No acute distress, non toxic appearing, elderly Eyes: PERRL, no scleral icterus HEENT: NCAT, external ears normal, MMM Respiratory: No respiratory distress, Lungs CTA bilaterally, no wheezing Cardiovascular: RRR, no murmur Abdominal: Soft, nontender, non distended, no rebound or guarding Musculoskeletal: sling in place LUE, dec ROM secondary to pain, radial pulse 2+ Neurological: A/Ox3, speech normal, no facial asymmetry Skin: Warm, dry, no rashes Psychiatric: Normal affect, normal mood Objective Data Vital Signs Vital Signs: Vital Signs - 24 hr 01/14/22 16:05 01/14/22 19:14 01/14/22 22:02 Temperature 97.2 F L Pulse Rate 92 84 96 Respiratory Rate 17 18 Blood Pressure 91/70 L 89/56 L 96/67 L Pulse Oximetry 95 100 01/14/22 22:03 01/14/22 23:00 01/15/22 00:00 Temperature
--- NOTE | 2022-01-15 11:40 | PM.CNOR ---
Assessment and Plan Assessment and plan (1) Fracture of neck of humerus: Qualifiers: Encounter type: initial encounter Fracture type: closed Laterality: left Qualified Code(s): S42.212A - Unspecified displaced fracture of surgical neck of left humerus, initial encounter for closed fracture Code(s): S42.213A - Unspecified displaced fracture of surgical neck of unspecified humerus, initial encounter for closed fracture Status: Acute Assessment and Plan: New patient evaluation status post injury with fall to left arm. The history, physical exam and radiographs reviewed with the patient. Type of fracture discussed in detail. Treatment options including operative and non operative treatment reviewed. Risks, benefits and alternatives of each treatment discussed in detail. The patient has declined surgical treatment. Risks of treatment decision discussed in detail. Potential problems with displacement of the fracture, loss of alignment, nonunion, malunion and dysfunction discussed in detail. The patient's questions were answered. They verbalized understanding and agreement. Conservative treatment with immobilization, ice, pain control. Patient has sling in place. May adjust p.r.n. and removed for hygiene. PT/OT with no use of the left arm. Will most likely require placement. (2) Fracture of radial head, left, closed: Qualifiers: Encounter type: initial encounter Fracture alignment: nondisplaced Qualified Code(s): S52.125A - Nondisplaced fracture of head of left radius, initial encounter for closed fracture Code(s): S52.122A - Displaced fracture of head of left radius, initial encounter for closed fracture Status: Acute History of Present Illness HPI Consult date: 01/15/22 Requesting physician: Mc Abrams M.A., MD Chief complaint: L humeral neck/radial head fractures s/p fall Narrative: 77-year-old woman admitted through the emergency room after falling yesterday onto the left arm. Patient not exactly sure how the arm was position but she lost her balance fell possibly hitting the elbow and pushing up on the arm. Radiographs in the emergency room found to have shoulder and elbow fractures. She is admitted for further care. She denies loss of consciousness or head injury. Denies neck or back pain. She complains of left shoulder and arm pain otherwise minimal other complaints. She was previously independent with her ADLs and daily function. She is [id number]. Review of Systems Constitutional: Constitutional: Denies fever(s) Eyes: Eyes: Denies blurry vision ENT: Reports Normal hearing present Cardiovascular: Cardiovascular: Denies chest pain and Denies dyspnea Respiratory: Respiratory: Denies dyspnea and Denies wheezing Gastrointestinal: Gastrointestinal: Denies abdominal pain Genitourinary: Genitourinary: Denies urinary urgency Musculoskeletal: Musculoskeletal: Reports as per HPI and Denies numbness Integumentary/Breasts: Skin/Breast: Denies changing lesions and Denies sores Neurologic: Reports Normal hearing present, Denies behavioral changes, Denies confusion, Denies numbness and Denies convulsions Psychiatric: Psychiatric: Denies behavioral changes, Denies confusion and Denies hallucinations Endocrine: Endocrine: Denies heat intolerance Hematologic/Lymphatic: Hematologic/Lymphatic: Denies easy bleeding Allergic/Immunologic: Allergic/Immunologic: Denies wheezing PMFSH Past Medical History Medical History Congestive heart failure Diabetes mellitus Hyperlipidemia Hypotension Pacemaker Surgical History Surgical History AICD (automatic cardioverter/defibrillator) present Social History Social History Smoking status: Never smoker Second hand tobacco smoke exposure: No Alc
[2022-01-15] MEDS: HYDROcodone/acetaminophen (*CRX) 5-325 MG TABLET 1 TAB PO (21:29)
[2022-01-16] VITALS (9 sets, daily range): BP systolic 87–115; BP diastolic 55–70; PULSE 85–112; RESP 16–18; TEMP 35.9–36.3; O2SAT 93–100
[2022-01-16 06:33] LABS: Alanine Aminotransferase 13 U/L (4-35); Albumin Level 3.6 g/dL (3.5-5.1); Alkaline Phosphatase 76 U/L (38-126); Anion Gap 10 mmol/L (8-16); Aspartate Amino Transferase 24 U/L (14-36); Bilirubin,Total 2.4 mg/dL (0.2-1.3); Blood Urea Nitrogen 14 mg/dL (7-17); Calcium 8.5 mg/dL (8.4-10.2); Carbon Dioxide 23 mmol/L (22-30); Chloride 106 mmol/L (98-107); Estimated CRCL calculation 31 ml/min; Estimated Glomerular Filt Rate 40; Glucose 127 mg/dL (65-110); Potassium 4.1 mmol/L (3.4-5.0); Sodium 139 mmol/L (137-145)
[2022-01-16 06:45] LABS: Basophils Absolute Auto 0.1 K/mm3 (0.0-0.1); Basophils Percent Auto 0.9 % (0.2-1.2); Eosinophils Absolute Auto 0.2 K/mm3 (0-0.3); Eosinophils Percent Auto 2.8 % (0-4.4); Hemoglobin 12.6 g/dL (12.0-15.0); Immature Granulocyte Absolute 0.02 K/mm3 (0.00-0.031); Immature Granulocyte Percent A 0.4 % (0-0.5); Lymphocytes Absolute Auto 1.51 K/mm3 (0.9-3.2); Lymphocytes Percent Auto 28.2 % (18.3-44.2); Mean Corpuscular Hemoglobin 25.6 pg (26-34); Mean Corpuscular Volume 85.4 fl (80-100); Mean Platelet Volume 11.3 fl (7.4-10.4); Monocytes Absolute Auto 0.5 K/mm3 (0.1-0.6); Monocytes Percent Auto 9.2 % (2.6-8.5); Neutrophils Absolute Auto 3.1 K/mm3 (1.3-6.7); Neutrophils Percent Auto 58.5 % (45.5-73.1); Platelet Count Result 143 k/mm3 (150-375); Red Blood Count 4.92 M/mm3 (4.2-5.4); Red Cell Distribution Width 19.3 % (11.5-14.5); White Blood Count 5.4 K/mm3 (4.5-10.0)
[2022-01-16] MEDS: PANTOPRAZOLE 40 MG TABLET PO (09:16)
[2022-01-16] MEDS: APIXABAN 5 MG TABLET PO ×2 (09:16→18:45)
[2022-01-16] MEDS: LEVOTHYROXINE SODIUM 25 MCG TABLET PO (09:16)
[2022-01-16] MEDS: MORPHINE SULFATE (*CRX) 2 MG/ML INJ IV PUSH (09:16)
[2022-01-16] MEDS: GABAPENTIN 300 MG CAPSULE PO ×2 (09:18→18:45)
[2022-01-16] MEDS: SPIRONOLACTONE 12.5 MG TABLET PO (09:18)
[2022-01-16] MEDS: METOPROLOL SUCCINATE EXT REL 25 MG TABCR PO (09:18)
[2022-01-16] MEDS: ATORVASTATIN 40 MG TABLET PO (09:18)
[2022-01-16] MEDS: SACUBITRIL/VALSARTAN 24-26 MG TABLET 1 TAB PO ×2 (09:18→20:37)
[2022-01-16] MEDS: MEXILETINE HCL 150 MG CAPSULE 300 MG PO ×3 (09:18→20:37)
--- NOTE | 2022-01-16 09:28 | PM.IMPN ---
Progress Note: A&P Assessment and Plan (1) Fracture of neck of humerus: Qualifiers: Encounter type: initial encounter Fracture type: closed Laterality: left Qualified Code(s): S42.212A - Unspecified displaced fracture of surgical neck of left humerus, initial encounter for closed fracture Code(s): S42.213A - Unspecified displaced fracture of surgical neck of unspecified humerus, initial encounter for closed fracture Status: Acute Assessment and Plan: -Reviewed shoulder x-ray -Pain control -Orthopedic consult -Hold Eliquis for now pending surgery evaluation (2) Fracture of radial head, left, closed: Qualifiers: Encounter type: initial encounter Fracture alignment: nondisplaced Qualified Code(s): S52.125A - Nondisplaced fracture of head of left radius, initial encounter for closed fracture Code(s): S52.122A - Displaced fracture of head of left radius, initial encounter for closed fracture Status: Acute Assessment and Plan: -Pain control -Orthopedic consult -Hold Eliquis for now pending orthopedic surgery evaluation (3) AICD (automatic cardioverter/defibrillator) present: Code(s): Z95.810 - Presence of automatic (implantable) cardiac defibrillator Status: Acute Assessment and Plan: -Pacemaker check ordered (4) Hyperlipidemia: Code(s): E78.5 - Hyperlipidemia, unspecified Status: Acute Assessment and Plan: -Pending home medication patient on statin at home (5) Hypotension: Code(s): I95.9 - Hypotension, unspecified Status: Acute Assessment and Plan: -Chronic most likely related to CHF Entresto, metoprolol -continue to monitor (6) Congestive heart failure: Code(s): I50.9 - Heart failure, unspecified Status: Acute Assessment and Plan: -Stable avoid fluid overload -Pending reconciliation of home medication (7) Chronic a-fib: Code(s): I48.20 - Chronic atrial fibrillation, unspecified Status: Acute Assessment and Plan: -Patient on Eliquis at home hold for possible surgical intervention -Patient on metoprolol at home pending confirmation of home medication -Home medication was not ordered at it was not confirmed yet (8) Abdominal pain: Code(s): R10.9 - Unspecified abdominal pain Status: Acute Assessment and Plan: -elevated t bili 2.4, tenderness on exam -LFTs normal -check CT abd/pelv non con (pt has CKD III) Additional Plan placement for rehab vs home with daughter to care for her??? - PT/OT Subjective Date/time seen: 01/16/22 09:28 Interval history: 77 yo female w/ hx of CHF s/p AICD, HTN, afib, DM, HLD, CVA, admitted for mechanical fall and L femoral neck fracture and L radial head fx. Pt having 10/10 shoulder pain. Also c/o nausea. Denies abd pain but is tender epigastric and RUQ on exam. No sob, no cp. Review of Systems Review of Systems: All systems reviewed & are unremarkable except as noted in HPI and below Exam Narrative: General: No acute distress, non toxic appearing, elderly Eyes: PERRL, no scleral icterus HEENT: NCAT, external ears normal, MMM Respiratory: No respiratory distress, Lungs CTA bilaterally, no wheezing Cardiovascular: RRR, no murmur Abdominal: Soft, mildy tender epigastric and RUQ, non distended, no rebound or guarding Musculoskeletal: sling in place LUE, dec ROM secondary to pain, radial pulse 2+ Neurological: A/Ox3, speech normal, no facial asymmetry Skin: Warm, dry, no rashes Psychiatric: Normal affect, normal mood Objective Data Vital Signs Vital Signs: Vital Signs - 24 hr 01/15/22 12:00 01/15/22 14:00 01/15/22 16:00 Temperature 96.7 F L Pulse Rate 94 102 H 100 Respiratory Rate 19 Blood Pressure 95/58 L Pulse Oximetry 100 01/15/22 20:00 01/15/22 22:00 01/16/22 00:00 Temperature 99.2 F Pulse Rate 99 10
[2022-01-16] MEDS: HYDROcodone/acetaminophen (*CRX) 5-325 MG TABLET 1 TAB PO (14:59)
[2022-01-16] MEDS: ONDANSETRON INJ 4 MG/2 ML VIAL IV PUSH (15:06)
[2022-01-17] VITALS (9 sets, daily range): BP systolic 76–100; BP diastolic 53–66; PULSE 77–98; RESP 14–16; TEMP 36.1–36.4; O2SAT 95–100
[2022-01-17] MEDS: ACETAMINOPHEN 325 MG TABLET 650 MG PO (04:28)
[2022-01-17] MEDS: MEXILETINE HCL 150 MG CAPSULE 300 MG PO ×3 (06:25→21:17)
[2022-01-17] MEDS: LEVOTHYROXINE SODIUM 25 MCG TABLET PO (06:25)
[2022-01-17 07:25] LABS: Basophils Percent Auto 0.5 % (0.2-1.2); Eosinophils Absolute Auto 0.1 K/mm3 (0-0.3); Eosinophils Percent Auto 2.7 % (0-4.4); Hematocrit 39.9 % (37.0-47.0); Hemoglobin 11.7 g/dL (12.0-15.0); Immature Granulocyte Absolute 0.01 K/mm3 (0.00-0.031); Immature Granulocyte Percent A 0.3 % (0-0.5); Lymphocytes Absolute Auto 0.89 K/mm3 (0.9-3.2); Lymphocytes Percent Auto 23.8 % (18.3-44.2); Mean Corpuscular HGB Conc 29.3 g/dl (32-36); Mean Corpuscular Hemoglobin 25.5 pg (26-34); Mean Corpuscular Volume 87.1 fl (80-100); Mean Platelet Volume 11.8 fl (7.4-10.4); Monocytes Absolute Auto 0.5 K/mm3 (0.1-0.6); Neutrophils Absolute Auto 2.3 K/mm3 (1.3-6.7); Neutrophils Percent Auto 60.7 % (45.5-73.1); Platelet Count Result 141 k/mm3 (150-375); Red Blood Count 4.58 M/mm3 (4.2-5.4); Red Cell Distribution Width 19.2 % (11.5-14.5); White Blood Count 3.7 K/mm3 (4.5-10.0)
[2022-01-17 07:36] LABS: Alanine Aminotransferase 11 U/L (4-35); Albumin Level 3.3 g/dL (3.5-5.1); Alkaline Phosphatase 73 U/L (38-126); Anion Gap 9 mmol/L (8-16); Aspartate Amino Transferase 22 U/L (14-36); Bilirubin,Total 2.5 mg/dL (0.2-1.3); Blood Urea Nitrogen 16 mg/dL (7-17); Calcium 8.3 mg/dL (8.4-10.2); Carbon Dioxide 23 mmol/L (22-30); Chloride 104 mmol/L (98-107); Estimated CRCL calculation 29 ml/min; Estimated Glomerular Filt Rate 37; Glucose 162 mg/dL (65-110); Potassium 4.4 mmol/L (3.4-5.0); Sodium 136 mmol/L (137-145)
[2022-01-17] MEDS: PANTOPRAZOLE 40 MG TABLET PO (08:57)
[2022-01-17] MEDS: SPIRONOLACTONE 12.5 MG TABLET PO (08:57)
[2022-01-17] MEDS: ATORVASTATIN 40 MG TABLET PO (08:57)
[2022-01-17] MEDS: SACUBITRIL/VALSARTAN 24-26 MG TABLET 1 TAB PO ×2 (08:58→21:17)
[2022-01-17] MEDS: APIXABAN 5 MG TABLET PO ×2 (08:58→16:10)
[2022-01-17] MEDS: GABAPENTIN 300 MG CAPSULE PO ×2 (08:58→16:10)
--- NOTE | 2022-01-17 09:55 | PM.IMPN ---
Progress Note: A&P Assessment and Plan (1) Fracture of neck of humerus: Qualifiers: Encounter type: initial encounter Fracture type: closed Laterality: left Qualified Code(s): S42.212A - Unspecified displaced fracture of surgical neck of left humerus, initial encounter for closed fracture Code(s): S42.213A - Unspecified displaced fracture of surgical neck of unspecified humerus, initial encounter for closed fracture Status: Acute Assessment and Plan: -Reviewed shoulder x-ray -Pain control, complains of 10/10 pain every time I see her. -Orthopedic consult: no surgical intervention at this time, sling in place -pt needs SNF placement, unable to use L arm (2) Fracture of radial head, left, closed: Qualifiers: Encounter type: initial encounter Fracture alignment: nondisplaced Qualified Code(s): S52.125A - Nondisplaced fracture of head of left radius, initial encounter for closed fracture Code(s): S52.122A - Displaced fracture of head of left radius, initial encounter for closed fracture Status: Acute Assessment and Plan: -Pain control -ortho consult -as above (3) AICD (automatic cardioverter/defibrillator) present: Code(s): Z95.810 - Presence of automatic (implantable) cardiac defibrillator Status: Acute Assessment and Plan: -Pacemaker check ordered (4) Hyperlipidemia: Code(s): E78.5 - Hyperlipidemia, unspecified Status: Acute Assessment and Plan: -continue home meds (5) Hypotension: Code(s): I95.9 - Hypotension, unspecified Status: Acute Assessment and Plan: -Chronic most likely related to CHF Entresto, metoprolol -down to 80s systolic, decreased metoprolol to 6.25 mg (6) Congestive heart failure: Code(s): I50.9 - Heart failure, unspecified Status: Acute Assessment and Plan: -Stable avoid fluid overload -continue home medication metoprolol and entresto (7) Chronic a-fib: Code(s): I48.20 - Chronic atrial fibrillation, unspecified Status: Acute Assessment and Plan: -continue eliquis -metoprolol decreased due to significant hypotension (8) Abdominal pain: Code(s): R10.9 - Unspecified abdominal pain Status: Acute Assessment and Plan: -elevated t bili 2.4, tenderness on exam -LFTs normal -CT abd pelv without contrast shows cholelithiasis without cholecystitis -pt tender RUQ and having nausea/vomiting; check RUQ us Subjective Date/time seen: 01/17/22 09:55 Interval history: 77 yo female w/ hx of CHF s/p AICD, HTN, afib, DM, HLD, CVA, admitted for mechanical fall and L femoral neck fracture and L radial head fx. Pt having 10/10 shoulder pain. Also c/o nausea with one episode of emesis. Denies abd pain but is tender epigastric and RUQ on exam. No sob, no cp. Review of Systems Review of Systems: All systems reviewed & are unremarkable except as noted in HPI and below Exam Narrative: General: No acute distress, non toxic appearing, elderly Eyes: PERRL, no scleral icterus HEENT: NCAT, external ears normal, MMM Respiratory: No respiratory distress, Lungs CTA bilaterally, no wheezing Cardiovascular: RRR, no murmur Abdominal: Soft, mildy tender epigastric and RUQ, non distended, no rebound or guarding Musculoskeletal: sling in place LUE, dec ROM secondary to pain, radial pulse 2+ Neurological: A/Ox3, speech normal, no facial asymmetry Skin: Warm, dry, no rashes Psychiatric: confused Objective Data Vital Signs Vital Signs: Vital Signs - 24 hr 01/16/22 12:00 01/16/22 14:00 01/16/22 16:00 Temperature 96.7 F L Pulse Rate 93 87 85 Respiratory Rate 18 Blood Pressure 102/55 L Pulse Oximetry 100 01/16/22 20:20 01/16/22 22:00 01/17/22 00:00 Temperature 97.3 F L Pulse Rate 90 85 84 Respiratory Rate 16 Blood Pressure 87/63 L Pulse Oximetr
[2022-01-17 09:56] LABS: Acanthocytes 1+ (NORMAL); Burr Cells 1+ (NORMAL); Ovalocytes 1+ (NORMAL)
[2022-01-17 10:50] LABS: Add Urine Microscopic? YES; Appearance Urine Cloudy (Clear); Bacteria Urine Trace /hpf; Bilirubin Urine Negative (Negative); Blood Urine Negative (Negative); Color Urine Amber (Yellow); Glucose Urine UA 3+ mg/dL (Negative); Hyaline Casts Urine 30-49 /lpf; Ketones Urine Negative (Negative); Leukocyte Esterase Ur Trace LEU/UL (Negative); Mucus Urine Rare /lpf; Nitrate Urine Negative (Negative); Protein Urine 1+ mg/dL (Negative); Specific Grav Ur 1.028 (1.001-1.035); Squamous Epithelial Cell Urine Many /hpf (Few)
[2022-01-17] MEDS: HYDROcodone/acetaminophen (*CRX) 5-325 MG TABLET 1 TAB PO (17:22)
[2022-01-17] MEDS: ONDANSETRON INJ 4 MG/2 ML VIAL IV PUSH (19:45)
[2022-01-18] VITALS (12 sets, daily range): BP systolic 76–116; BP diastolic 48–84; PULSE 72–102; RESP 16–18; TEMP 35.6–36.6; O2SAT 97–100
[2022-01-18] MEDS: MEXILETINE HCL 150 MG CAPSULE 300 MG PO ×3 (06:37→21:16)
[2022-01-18] MEDS: ONDANSETRON INJ 4 MG/2 ML VIAL IV PUSH (06:37)
[2022-01-18] MEDS: LEVOTHYROXINE SODIUM 25 MCG TABLET PO (06:38)
[2022-01-18 06:43] LABS: Alanine Aminotransferase 11 U/L (4-35); Alkaline Phosphatase 65 U/L (38-126); Anion Gap 7 mmol/L (8-16); Aspartate Amino Transferase 22 U/L (14-36); Bilirubin,Total 2.8 mg/dL (0.2-1.3); Blood Urea Nitrogen 21 mg/dL (7-17); Calcium 8.1 mg/dL (8.4-10.2); Carbon Dioxide 20 mmol/L (22-30); Chloride 106 mmol/L (98-107); Estimated CRCL calculation 29 ml/min; Estimated Glomerular Filt Rate 37; Glucose 173 mg/dL (65-110); Lipase 23 U/L (23-300); Potassium 4.7 mmol/L (3.4-5.0); Sodium 133 mmol/L (137-145)
[2022-01-18 07:37] LABS: Basophils Percent Auto 0.8 % (0.2-1.2); Eosinophils Absolute Auto 0.1 K/mm3 (0-0.3); Eosinophils Percent Auto 1.3 % (0-4.4); Hematocrit 38.8 % (37.0-47.0); Hemoglobin 11.5 g/dL (12.0-15.0); Immature Granulocyte Absolute 0.01 K/mm3 (0.00-0.031); Immature Granulocyte Percent A 0.3 % (0-0.5); Immature Platelet Fraction Pct 6.3 % (0.9-11.2); Lymphocytes Absolute Auto 0.58 K/mm3 (0.9-3.2); Lymphocytes Percent Auto 14.5 % (18.3-44.2); Mean Corpuscular HGB Conc 29.6 g/dl (32-36); Mean Corpuscular Hemoglobin 25.5 pg (26-34); Mean Platelet Volume 11.1 fl (7.4-10.4); Monocytes Absolute Auto 0.4 K/mm3 (0.1-0.6); Monocytes Percent Auto 10.5 % (2.6-8.5); Neutrophils Absolute Auto 2.9 K/mm3 (1.3-6.7); Neutrophils Percent Auto 72.6 % (45.5-73.1); Platelet Count Result 125 k/mm3 (150-375); Red Blood Count 4.51 M/mm3 (4.2-5.4); Red Cell Distribution Width 19.2 % (11.5-14.5)
--- NOTE | 2022-01-18 07:43 | ECG_ITS ---
Measurements Intervals [place] Rate: 90 P: SD: 0 QRS: 51 QRSD: 112 T: 85 QT: 386 QTc: 474 Interpretive Statements ATRIAL FIBRILLATION LOW QRS VOLTAGE [QRS DEFLECTION < 0.5/1.0 mV IN LIMB/CHEST LEADS] PROBABLE INFERIOR MYOCARDIAL INFARCTION , PROBABLY OLD [40+ ms Q WAVE AND/OR ST/T ABNORMALITY IN II/aVF] ANTEROSEPTAL MYOCARDIAL INFARCTION , OLD COMPARED TO ECG 12/30/2020 08:37:47 NO SIGNIFICANT CHANGES Electronically Signed On 01-18-2022 20:43:32 CDT by Cristian Bermudez M.D.
[2022-01-18 07:57] LABS: Acanthocytes 1+ (NORMAL); Burr Cells 1+ (NORMAL); Ovalocytes 1+ (NORMAL); Platelet Estimate Decreased (Adequate)
--- NOTE | 2022-01-18 08:00 | PM.IMPN ---
Progress Note: A&P Assessment and Plan (1) Hypotension: Code(s): I95.9 - Hypotension, unspecified Status: Acute Assessment and Plan: -no signs of infection present, no fever/leukocytosis/tachycardia. UA negative. Covid negative. -Considered narcotics contributing however she only received 1 dose of morphine 2 mg on 01/16/22 and has only had 3 norco 5/325s over the course of the past 48 hours. In any case I have held the morphine. -does have some chronic hypotension, most likely related to CHF Entresto, metoprolol, spironolactone. Her baseline seems to be in the 100s systolic -down to 80s systolic 01/17/22, decreased metoprolol to 6.25 mg -today 01/18/22 now in the 70s systolic. Held Entresto, spironolactone. Gave 500 ml bolus. -continue monitoring on telemetry -ordered EKG and echo -cardiology consulted for assistance in managing her cardiac medications (2) Abdominal pain: Code(s): R10.9 - Unspecified abdominal pain Status: Acute Assessment and Plan: -elevated t bili 2.4, tenderness on exam, increased to 2.8 -LFTs normal -CT abd pelv without contrast shows cholelithiasis without cholecystitis -pt tender RUQ and having persistent nausea/vomiting despite zofran -RUQ US cholelithiasis no cholecystitis -discussed with Dr. Sheets GI who recommends HIDA scan in the AM, getting a direct bilirubin, and trying reglan for her N/V (3) Fracture of neck of humerus: Qualifiers: Encounter type: initial encounter Fracture type: closed Laterality: left Qualified Code(s): S42.212A - Unspecified displaced fracture of surgical neck of left humerus, initial encounter for closed fracture Code(s): S42.213A - Unspecified displaced fracture of surgical neck of unspecified humerus, initial encounter for closed fracture Status: Acute Assessment and Plan: -Reviewed shoulder x-ray -Pain control, complains of 10/10 pain every time I see her. -Orthopedic consult: no surgical intervention at this time, sling in place -pt needs SNF placement, unable to use L arm -caution with narcotics due to significant hypotension (4) Fracture of radial head, left, closed: Qualifiers: Encounter type: initial encounter Fracture alignment: nondisplaced Qualified Code(s): S52.125A - Nondisplaced fracture of head of left radius, initial encounter for closed fracture Code(s): S52.122A - Displaced fracture of head of left radius, initial encounter for closed fracture Status: Acute Assessment and Plan: -Pain control -ortho consult -as above (5) AICD (automatic cardioverter/defibrillator) present: Code(s): Z95.810 - Presence of automatic (implantable) cardiac defibrillator Status: Acute Assessment and Plan: -Pacemaker check ordered -cardiology consulted (6) Hyperlipidemia: Code(s): E78.5 - Hyperlipidemia, unspecified Status: Acute Assessment and Plan: -continue home meds (7) Congestive heart failure: Code(s): I50.9 - Heart failure, unspecified Status: Acute Assessment and Plan: -Stable avoid fluid overload -continue home medication metoprolol and entresto (held due to hypotension) -cardiology consult (8) Chronic a-fib: Code(s): I48.20 - Chronic atrial fibrillation, unspecified Status: Acute Assessment and Plan: -continue eliquis -metoprolol decreased due to significant hypotension Additional Plan placement for rehab vs home with daughter to care for her??? - PT/OT Subjective Date/time seen: 01/18/22 08:00 Interval history: 77 yo female w/ hx of CHF s/p AICD, HTN, afib, DM, HLD, CVA, admitted for mechanical fall and L humeral neck fracture and L radial head fx. Pt having persistent nausea, vomiting, and decreased appetite. Having intermittent epigastric and RUQ pain. Also still having significant L shoulder pain.
[2022-01-18] MEDS: SODIUM CHLORIDE 0.9% IV 500 ML IV CONT (08:12)
[2022-01-18] MEDS: GABAPENTIN 300 MG CAPSULE PO ×2 (09:28→17:53)
[2022-01-18] MEDS: ATORVASTATIN 40 MG TABLET PO (09:28)
[2022-01-18] MEDS: APIXABAN 5 MG TABLET PO ×2 (09:28→17:53)
[2022-01-18] MEDS: PANTOPRAZOLE 40 MG TABLET PO (09:28)
[2022-01-18] MEDS: METOCLOPRAMIDE HCL INJ 10 MG/2 ML VIAL 5 MG IV PUSH ×2 (09:33→17:53)
[2022-01-18] MEDS: ACETAMINOPHEN 325 MG TABLET 650 MG PO (10:24)
--- NOTE | 2022-01-18 13:07 | PM.CNCAR ---
Assessment and Plan Additional Plan This is a 77-year-old lady with history of a cardiomyopathy with a low ejection fraction. She for that treatment of that has been maintained on Entresto metoprolol and Aldactone all at modest doses. She is had admitted here with a fracture of the left humerus after falling in her home. She does not have any history of syncope that prompted this fall. , I am consulted to see her because of asymptomatic hypotension. Her CHF medications have appropriately been placed on hold. At the time of my evaluation the blood pressure I would check myself is somewhat better than this. We will follow her with you with this hospitalization and hopefully will be able to gradually resume her CHF medications while she is here. She is not in decompensated heart failure and at this point there are not any other specific recommendations to make. Cristian Bermudez MD [facility] History of Present Illness History of Present Illness Consult date/time: 01/18/22 13:07 Consult reason: hypotension Reason For Visit: L humeral neck/radial head fractures s/p fall Narrative: This is a 77-year-old woman I am seeing at the request of the hospitalist because of hypotension. Apparently she has a history of chronic atrial fib and a cardiomyopathy although she is unknown to me prior to this consultation this after the patient apparently has a established diagnosis of chronic atrial fib and a cardiomyopathy with LV systolic dysfunction and receives her care by the physicians at [facility] in [place]. She is a poor historian regarding the details of her history and cannot really tell me how long she has had heart disease and whether or not she is known to have coronary artery disease. The patient does have a chronically implanted defibrillator she normally takes a combination of apixaban, metoprolol 25 mg daily, Entresto 24/26 mg daily and spironolactone 12.5 mg daily. She has not had any recent instability in terms of chest pain trouble breathing or any shocks from her defibrillator. She did state that in the past there was 1 time where she did receive several defibrillator counter shocks and then shortly after that her generator was changed and she has not received any therapies in quite some time. There was a consultation with an station operator couple of years ago at [facility] to consider implanting a watch man in this patient who apparently had some desire not to be anticoagulated. I do have a note of that consultation and she declined implantation of a Watchman at that time. Since then she has been systemically anticoagulated with apixaban. She is hospitalized here at [facility] because she had a fall in her residence resulting in a 2 fractures of her humerus on the left side 1 at the shoulder a 1 down at the elbow. The patient says that consultants did not wish to operate on her to repair this. The chart contradicts that indicating that surgery was discussed and declined. In any event her left upper extremity is in a sling I am seeing her in this setting in consultation because on vital signs since she has been in the hospital her blood pressure has been low. Her family apparently indicated to staff earlier in the hospitalization that she commonly has systolic blood pressures in the 90s. Systolic blood pressures today have been in the mid 70s. All of the above heart failure drugs have been placed on hold and she did receive a bit of a fluid challenge earlier today. The patient is seated in a chair with physical therapy doing some range of motion exercises. She does not have any complaints currently she denies any sense of lightheadedness or dizziness. She has a manual blood pressure in the right upper extremity that I took personally at this time of 88/58. Review of Systems Review of Systems: ROS unobtainable: Yes unobtainable due to mental status PMFSH Past Medical History Medical History (Reviewed 01/15/22 @ 11:42 by Luis Carlos Cano
[2022-01-18] MEDS: SODIUM CHLORIDE 0.9% IV 1,000 ML 50 ML IV CONT (14:59)
[2022-01-18] MEDS: HYDROcodone/acetaminophen (*CRX) 5-325 MG TABLET 1 TAB PO (21:16)
[2022-01-19] VITALS (12 sets, daily range): BP systolic 73–94; BP diastolic 49–63; PULSE 58–104; RESP 14–18; TEMP 36–36.1; O2SAT 97–98
--- NOTE | 2022-01-19 | ECHO_ITS ---
Patient Info Name: Pricila Edward Age: 77 years : 1945 Gender: Female Ht: 63 in Wt: 154 lbs BSA: 1.78 m2 HR: 89 bpm BP: 81 / 49 mmHg Heart Rhythm: Paced Technical Quality: Good Exam Date: 01/19/2022 3:47 PM Exam Location: [facility] Pulmonary Exam Room: 331 Patient Status: Inpatient Admit Date: 01/17/2022 Staff Ordering Physician: Cristian Bermudez MD [place] [employer]: Aspen Bravo RDCS Attending Provider: Annika Hollingsworth PA-C Referring Physician: Lara DAHL; Exam Type: CA echo doppler color flow Study Info Indications - cardiomyopathy hypotension ppm Complete two-dimensional, color flow and Doppler transthoracic echocardiogram is performed. Summary 1. Complete two-dimensional, color flow and Doppler transthoracic echocardiogram is performed. 2. Left ventricular chamber dimension is mildly enlarged. 3. Left ventricular systolic function is severely reduced, estimated at 20-25%. 4. There is no increased left ventricular wall thickness. 5. Right atrial chamber dimension is severely enlarged. 6. Left atrial chamber dimension is severely enlarged. 7. There is no aortic valve stenosis. 8. There is moderate mitral valve regurgitation. 9. There is severe tricuspid valve regurgitation. 10. Mild pulmonary hypertension, estimated pulmonary arterial systolic pressure is 37 mmHg. Left Ventricle Left ventricular chamber dimension is mildly enlarged. Left ventricular systolic function is severely reduced, estimated at 20-25%. There is no increased left ventricular wall thickness. Left ventricular septal wall motion is abnormal with septal motion related to pacing. The left ventricular diastolic function is abnormal. Right Ventricle Right ventricular chamber dimension is normal. Right ventricular systolic function is normal. Linear artifact in right ventricle suggestive of catheter(s), pacemaker lead(s), or ICD lead(s). Left Atria Left atrial chamber dimension is severely enlarged. Right Atria Right atrial chamber dimension is severely enlarged. Linear artifact in the right atrium suggestive of catheter(s), pacemaker lead(s), or ICD lead(s). Aortic Valve The aortic valve is probable trileaflet. There is no aortic valve stenosis. There is trace aortic valve regurgitation. Pulmonic Valve The pulmonic valve is normal. There is trace pulmonic regurgitation. Mitral Valve The mitral valve has normal leaflets. There is moderate mitral valve regurgitation. The mitral valve annulus is moderately calcified. Tricuspid Valve The tricuspid valve leaflets are normal. There is severe tricuspid valve regurgitation. Mild pulmonary hypertension, estimated pulmonary arterial systolic pressure is 37 mmHg. Pericardium/Pleural The pericardium appears normal. There is small pericardial effusion. Inferior Vena Cava Dilated inferior vena cava with <50% collapse upon inspiration consistent with significantly elevated right atrial pressure, 15 mmHg. Aorta The aortic root size at the sinus of Valsalva is normal. Left Ventricular Outflow Tract Name Value Normal LVOT 2D LVOT Diameter 2.0 cm LVOT Doppler
[2022-01-19] MEDS: HYDROcodone/acetaminophen (*CRX) 5-325 MG TABLET 1 TAB PO (03:32)
[2022-01-19] MEDS: SODIUM CHLORIDE 0.9% IV 1,000 ML 50 ML IV CONT (05:15)
[2022-01-19] MEDS: MEXILETINE HCL 150 MG CAPSULE 300 MG PO ×2 (06:25→15:24)
[2022-01-19] MEDS: LEVOTHYROXINE SODIUM 25 MCG TABLET PO (06:25)
[2022-01-19 06:26] LABS: Basophils Percent Auto 0.7 % (0.2-1.2); Eosinophils Absolute Auto 0.1 K/mm3 (0-0.3); Eosinophils Percent Auto 2.1 % (0-4.4); Hematocrit 38.3 % (37.0-47.0); Immature Granulocyte Absolute 0.01 K/mm3 (0.00-0.031); Immature Granulocyte Percent A 0.2 % (0-0.5); Lymphocytes Absolute Auto 0.72 K/mm3 (0.9-3.2); Lymphocytes Percent Auto 16.7 % (18.3-44.2); Mean Corpuscular HGB Conc 28.7 g/dl (32-36); Mean Corpuscular Hemoglobin 25.5 pg (26-34); Mean Corpuscular Volume 88.7 fl (80-100); Mean Platelet Volume 10.9 fl (7.4-10.4); Monocytes Absolute Auto 0.5 K/mm3 (0.1-0.6); Monocytes Percent Auto 10.9 % (2.6-8.5); Neutrophils Percent Auto 69.4 % (45.5-73.1); Platelet Count Result 130 k/mm3 (150-375); Red Blood Count 4.32 M/mm3 (4.2-5.4); Red Cell Distribution Width 19.3 % (11.5-14.5); White Blood Count 4.3 K/mm3 (4.5-10.0)
[2022-01-19 06:38] LABS: Alanine Aminotransferase 11 U/L (4-35); Alkaline Phosphatase 63 U/L (38-126); Anion Gap 7 mmol/L (8-16); Aspartate Amino Transferase 21 U/L (14-36); Bilirubin,Total 2.4 mg/dL (0.2-1.3); Blood Urea Nitrogen 23 mg/dL (7-17); Calcium 7.9 mg/dL (8.4-10.2); Carbon Dioxide 20 mmol/L (22-30); Chloride 105 mmol/L (98-107); Estimated CRCL calculation 27 ml/min; Estimated Glomerular Filt Rate 34; Glucose 181 mg/dL (65-110); Lipase 46 U/L (23-300); Potassium 4.5 mmol/L (3.4-5.0); Sodium 132 mmol/L (137-145)
[2022-01-19 07:18] LABS: Anisocytosis 2+ (NORMAL); Platelet Estimate Adequate (Adequate)
[2022-01-19 07:19] LABS: Acanthocytes 1+ (NORMAL); Hypochromasia 1+ (NORMAL); Ovalocytes 1+ (NORMAL)
--- NOTE | 2022-01-19 07:25 | PM.IMPN ---
Progress Note: A&P Assessment and Plan (1) UTI (urinary tract infection): Code(s): N39.0 - Urinary tract infection, site not specified Status: Acute Assessment and Plan: -UA 01/17/22 did not look acutely infeted with 7-9 WBCs, trace leukocytes, and many squamous cells -culture came back 01/19/22 w/ group B strep -pt started on ceftriaxone #1 -could be contributing to her N/V and hypotension (2) Hypotension: Code(s): I95.9 - Hypotension, unspecified Status: Acute Assessment and Plan: -Considered narcotics contributing however she only received 1 dose of morphine 2 mg on 01/16/22 and has only had 3 norco 5/325s over the course of the past 48 hours. In any case I have held the morphine. -does have some chronic hypotension, most likely related to CHF Entresto, metoprolol, spironolactone. Her baseline seems to be in the 100s systolic -down to 80s systolic 01/17/22, decreased metoprolol to 6.25 mg -today 01/18/22 down 70s systolic. Held Entresto, spironolactone. Gave 500 ml bolus. -continue monitoring on telemetry -ordered EKG and echo -cardiology consulted for assistance in managing her cardiac medications, appreciate any recommendations -urine culture grew group B strep, hypotension secondary to infection? Pt was started on ceftriaxone. Currently on NS 50/hr and clear liquid diet due to GI issues listed below (3) Abdominal pain: Code(s): R10.9 - Unspecified abdominal pain Status: Acute Assessment and Plan: -elevated t bili 2.4, tenderness on exam, increased to 2.8 -LFTs normal -CT abd pelv without contrast shows cholelithiasis without cholecystitis -pt tender RUQ and having persistent nausea/vomiting despite zofran -RUQ US cholelithiasis no cholecystitis -discussed with Dr. Sheets GI who recommends HIDA scan, getting a direct bilirubin, and trying reglan for her N/V -direct bili 0 raising possibility of Gilbert's? -clear liquid diet until N/V subsides, also giving NS 50/hr (4) Fracture of neck of humerus: Qualifiers: Encounter type: initial encounter Fracture type: closed Laterality: left Qualified Code(s): S42.212A - Unspecified displaced fracture of surgical neck of left humerus, initial encounter for closed fracture Code(s): S42.213A - Unspecified displaced fracture of surgical neck of unspecified humerus, initial encounter for closed fracture Status: Acute Assessment and Plan: -Reviewed shoulder x-ray -Pain control, complains of 10/10 pain every time I see her. -Orthopedic consult: no surgical intervention at this time, sling in place -pt needs SNF placement, unable to use L arm -caution with narcotics due to significant hypotension (5) Fracture of radial head, left, closed: Qualifiers: Encounter type: initial encounter Fracture alignment: nondisplaced Qualified Code(s): S52.125A - Nondisplaced fracture of head of left radius, initial encounter for closed fracture Code(s): S52.122A - Displaced fracture of head of left radius, initial encounter for closed fracture Status: Acute Assessment and Plan: -Pain control -ortho consult -as above (6) AICD (automatic cardioverter/defibrillator) present: Code(s): Z95.810 - Presence of automatic (implantable) cardiac defibrillator Status: Acute Assessment and Plan: -Pacemaker check ordered -cardiology consulted (7) Hyperlipidemia: Code(s): E78.5 - Hyperlipidemia, unspecified Status: Acute Assessment and Plan: -continue home meds (8) Congestive heart failure: Code(s): I50.9 - Heart failure, unspecified Status: Acute Assessment and Plan: -Stable avoid fluid overload, caution with IVF being used as above -continue home medication metoprolol and entresto (held due to hypotension) -cardiology consult (9) Chronic a-fib: Code(s): I48.20 -
[2022-01-19] MEDS: PANTOPRAZOLE 40 MG TABLET PO (09:02)
[2022-01-19] MEDS: ATORVASTATIN 40 MG TABLET PO (09:02)
[2022-01-19] MEDS: GABAPENTIN 300 MG CAPSULE PO ×2 (09:03→17:47)
[2022-01-19] MEDS: ACETAMINOPHEN 325 MG TABLET 650 MG PO ×2 (09:28→16:31)
--- NOTE | 2022-01-19 11:00 | PM.PNCARD ---
Progress Note: A&P Additional Plan 77-year-old lady with: Chronic dilated cardiomyopathy had been clinically stable on standard medical regimen including metoprolol Entresto and spironolactone. She is hypotensive and a during this hospitalization where her heart failure medications have been placed on hold. Tolerating this so far but she does have some pulmonary rales on exam today. I will restart her spironolactone for that reason. Continue to hold her beta-shawanda and Entresto. Will have an echocardiogram done to assess the status of her cardiomyopathy. Cristian Bermudez MD [facility] Subjective Date/time seen: Date of service: 01/19/22 11:00 Interval history: Follow-up visit in this 77-year-old lady with: Significant cardiomyopathy receives her care elsewhere. Patient was admitted here with a fall and fracture of the left humerus and radius. She is being managed non operatively. Consulted to see her because of asymptomatic hypotension resulting in the decision to hold her heart failure medication. Patient feels relatively well today feels a bit weak no other specific symptoms. Systolic blood pressure still in the mid 80s. Not short of breath. Exam Const: General: comfortable and no acute distress HENMT: Mouth: Yes moist mucous membranes Eyes: Sclera: sclerae normal Neck: Neck: supple and no JVD Resp: Effort & Inspection: normal respiratory effort Other: Patient has basilar rales noted today Cardio: Rate: regular rate Rhythm: regular rhythm GI: GI Palp: Yes Soft to palpation Auscultation: normal bowel sounds Extrem: Other: No significant peripheral edema. Left upper extremity in a sling Objective Data Vital Signs Vital Signs: Vital Signs - 24 hr 01/18/22 12:00 01/18/22 12:30 01/18/22 14:00 Temperature 35.6 C L Pulse Rate 89 87 Respiratory Rate 18 Blood Pressure 86/58 L 81/56 L Pulse Oximetry 97 01/18/22 15:07 01/18/22 16:00 01/18/22 20:00 Temperature Pulse Rate 85 81 89 Respiratory Rate Blood Pressure Pulse Oximetry 01/18/22 21:16 01/18/22 21:32 01/19/22 00:00 Temperature 36.4 C Pulse Rate 72 96 95 Respiratory Rate 16 Blood Pressure 116/84 Pulse Oximetry 100 01/19/22 04:00 01/19/22 06:00 01/19/22 06:24 Temperature 36.1 C L Pulse Rate 91 87 98 Respiratory Rate 14 Blood Pressure 73/53 L 81/49 L Pulse Oximetry 98 01/19/22 06:25 Temperature Pulse Rate 89 Respiratory Rate Blood Pressure Pulse Oximetry Intake/Output Intake/Output: Intake & Output 01/16/22 01/17/22 01/18/22 01/19/22 23:59 23:59 23:59 23:59 Intake Total 388 518 6527 1150 Output Total 400 Balance 025 362 8122 1150 Meds/Results Medications: Active Medications Generic Name Dose Route Start Last Admin Trade Name Freq PRN Reason Stop Dose Admin Acetaminophen 650 mg 01/14/22 21:17 01/19/22 09:28 Acetaminophen 325 Mg Tablet PO 650 mg Q4H PRN Administration Mild Pain (1-3) or Fever Hydrocodone Bitart/Acetaminophen 1 tab 01/14/22 21:15 01/19/22 03:32 Hydrocodone/Acetaminophen (*Crx) 5-325 Mg Tablet PO 1 tab Q4HR PRN Administration pain Al Hydrox/Mg Hydrox/Simethicone 30 ml 01/14/22 21:17 Mag Hydrox/Al Hydrox/Simeth 30 Ml Udc PO QID PRN Dyspepsia Apixaban 5 mg 01/16/22 09:00 01/18/22 17:53 Apixaban 5 Mg Tablet PO 5 mg BID [place] Administration Atorvastatin Calcium 40 mg 01/16/22 09:00 01/19/22 09:02 Atorvastatin 40 Mg Tablet PO 40 mg DAILY [place] Administration Gabapentin 300 mg 01/16/22 09:00 01/19/22 09:03 Gabapentin 300 Mg Capsule PO 300 mg BID [place] Administration Sodium Chloride 1,000 mls @ 50 mls/hr 01/18/22 09:25 01/19/22 05:15 Normal Saline Iv IV CONT 50 mls/hr .Q20H [place] Administration Ceftriaxone Sodium/Dextrose 1 gm in 50 mls @ 100 mls/hr 01/19/22 08:00 01/19/22 09:02 Rocephin 1 Gm/D5w 50 Ml IVPB 100 mls/hr Q24H [place] Administration Levothyrox
[2022-01-19] MEDS: SPIRONOLACTONE 12.5 MG TABLET PO (15:25)
[2022-01-19] MEDS: APIXABAN 5 MG TABLET PO (15:25)
[2022-01-20] VITALS (14 sets, daily range): BP systolic 83–102; BP diastolic 21–63; PULSE 89–109; RESP 16–18; TEMP 35.9–36.4; O2SAT 95–98
[2022-01-20] MEDS: MEXILETINE HCL 150 MG CAPSULE 300 MG PO ×4 (00:37→21:17)
[2022-01-20] MEDS: ACETAMINOPHEN 325 MG TABLET 650 MG PO ×2 (04:00→13:31)
[2022-01-20 06:21] LABS: Basophils Percent Auto 0.7 % (0.2-1.2); Eosinophils Absolute Auto 0.1 K/mm3 (0-0.3); Eosinophils Percent Auto 1.2 % (0-4.4); Hematocrit 37.7 % (37.0-47.0); Hemoglobin 10.7 g/dL (12.0-15.0); Immature Granulocyte Absolute 0.01 K/mm3 (0.00-0.031); Immature Granulocyte Percent A 0.2 % (0-0.5); Lymphocytes Absolute Auto 0.49 K/mm3 (0.9-3.2); Lymphocytes Percent Auto 8.1 % (18.3-44.2); Mean Corpuscular HGB Conc 28.4 g/dl (32-36); Mean Corpuscular Hemoglobin 25.7 pg (26-34); Mean Corpuscular Volume 90.6 fl (80-100); Mean Platelet Volume 11.8 fl (7.4-10.4); Monocytes Absolute Auto 0.6 K/mm3 (0.1-0.6); Monocytes Percent Auto 10.6 % (2.6-8.5); Neutrophils Absolute Auto 4.8 K/mm3 (1.3-6.7); Neutrophils Percent Auto 79.2 % (45.5-73.1); Platelet Count Result 132 k/mm3 (150-375); Red Blood Count 4.16 M/mm3 (4.2-5.4); Red Cell Distribution Width 19.9 % (11.5-14.5)
[2022-01-20] MEDS: SODIUM CHLORIDE 0.9% IV 1,000 ML 50 ML IV CONT (06:26)
[2022-01-20] MEDS: LEVOTHYROXINE SODIUM 25 MCG TABLET PO (06:26)
[2022-01-20 06:44] LABS: Alanine Aminotransferase 12 U/L (4-35); Alkaline Phosphatase 59 U/L (38-126); Anion Gap 7 mmol/L (8-16); Aspartate Amino Transferase 27 U/L (14-36); Bilirubin,Total 2.6 mg/dL (0.2-1.3); Blood Urea Nitrogen 22 mg/dL (7-17); Calcium 7.8 mg/dL (8.4-10.2); Carbon Dioxide 18 mmol/L (22-30); Chloride 106 mmol/L (98-107); Estimated CRCL calculation 29 ml/min; Estimated Glomerular Filt Rate 37; Glucose 192 mg/dL (65-110); Lipase 40 U/L (23-300); Potassium 4.6 mmol/L (3.4-5.0); Sodium 131 mmol/L (137-145)
[2022-01-20 07:15] LABS: Anisocytosis 1+ (NORMAL); Ovalocytes 2+ (NORMAL); Platelet Estimate Adequate (Adequate)
[2022-01-20 07:16] LABS: Acanthocytes 2+ (NORMAL); Schistocytes 1+ (NORMAL)
--- NOTE | 2022-01-20 09:03 | PM.PNCARD ---
Progress Note: A&P Assessment and Plan (1) Congestive heart failure: Code(s): I50.9 - Heart failure, unspecified Status: Acute Assessment and Plan: History of NICM. Recent echo shows EF 20-25% as well as moderate MR and severe TR. On medical therapy with Entresto, spironolactone, metoprolol. Reasonably compensated. As stated in previous notes we should make efforts to administer her heart failure medications unless she is experiencing symptomatic/problematic hypotension. (2) AICD (automatic cardioverter/defibrillator) present: Code(s): Z95.810 - Presence of automatic (implantable) cardiac defibrillator Status: Acute Assessment and Plan: Managed by Dr. Kapadia at [facility]. She will follow-up with [facility] as an outpatient upon discharge (3) Hypotension: Code(s): I95.9 - Hypotension, unspecified Status: Acute Assessment and Plan: She remains relatively hypotensive but stable an likely at her baseline. Continue to utilize cardiovascular medical therapy. Do not hold medications unless systolic blood pressure less than 80 mm Hg. Minimize narcotic pain medications as much as possible. As discussed in previous notes and as above we should make efforts to avoid holding her cardiac medications unless her hypotension is symptomatic/problematic. (4) Chronic a-fib: Code(s): I48.20 - Chronic atrial fibrillation, unspecified Status: Acute Assessment and Plan: Rate controlled on metoprolol, mexiletine. She is anticoagulated with apixaban. She had previously been referred for Watchman device but was apparently not interested in undergoing this procedure. Subjective Date/time seen: 01/20/22 09:03 Interval history: Cardiology follow up for CHF s/p AICD, HTN, afib, DM, HLD, CVA. Complaining of pain in her arm. Denies any chest pain, shortness of breath or palpitations. Review of Systems Review of Systems: ROS unobtainable: Yes unobtainable due to mental status Exam Const: General: comfortable and no acute distress Other: Pleasant elderly lady appears to be a bit older than her stated age HENMT: Mouth: Yes moist mucous membranes and No dry mucous membranes Eyes: Sclera: sclerae normal Pupils: Equal, round and reactive pupils present Neck: Neck: supple and no JVD Resp: Effort & Inspection: normal respiratory effort Auscultation: clear to auscultation bilaterally Other: Patient has basilar rales Cardio: Rate: regular rate Rhythm: regular rhythm and abnormal rhythm irregularly irregular GI: Auscultation: normal bowel sounds Skin: General skin exam: normal color Neuro: Cranial nerves: Yes Equal, round and reactive pupils present Cognition (Neuro): normal cognition Extrem: Other: No significant peripheral edema. Left upper extremity in a sling Objective Data Vital Signs Vital Signs: Vital Signs - 24 hr 01/19/22 12:00 01/19/22 14:00 01/19/22 15:24 Temperature 36.0 C L Pulse Rate 70 58 L 70 Respiratory Rate 16 Blood Pressure 94/63 L Pulse Oximetry 97 01/19/22 16:00 01/19/22 20:00 01/19/22 21:49 Temperature 36.1 C L Pulse Rate 102 H 99 99 Respiratory Rate 18 18 Blood Pressure 92/59 L Pulse Oximetry 98 98 01/20/22 00:00 01/20/22 00:37 01/20/22 04:00 Temperature Pulse Rate 102 H 98 107 H Respiratory Rate Blood Pressure Pulse Oximetry 01/20/22 06:00 01/20/22 06:25 Temperature 35.9 C L Pulse Rate 99 96 Respiratory Rate 18 Blood Pressure 83/53 L Pulse Oximetry 97 Intake/Output Intake/Output: Intake & Output 01/17/22 01/18/22 01/19/22 01/20/22 23:59 23:59 23:59 23:59 Intake Total 980 1970 1640 1120 Output Total 400 Balance 580 1969 1640 1120 Meds/Results Medications: Active Medications Generic Name Dose Route Start Last Admin Trade Name Orenq PRN Reason Stop Dose Admin Acetaminophen 650 mg 01/14/22 21:17 0
[2022-01-20] MEDS: HYDROcodone/acetaminophen (*CRX) 5-325 MG TABLET 1 TAB PO (09:07)
--- NOTE | 2022-01-20 09:16 | PCOTNOTE ---
Attempted to see patient this am, however patient refused stating, I feel too bad.
[2022-01-20] MEDS: ATORVASTATIN 40 MG TABLET PO (09:26)
[2022-01-20] MEDS: GABAPENTIN 300 MG CAPSULE PO ×2 (09:26→17:24)
[2022-01-20] MEDS: APIXABAN 5 MG TABLET PO ×2 (09:26→17:24)
[2022-01-20] MEDS: PANTOPRAZOLE 40 MG TABLET PO (09:26)
[2022-01-20] MEDS: SPIRONOLACTONE 12.5 MG TABLET PO (09:26)
--- NOTE | 2022-01-20 15:58 | PC.NURSE ---
On 01/20/22, the student, Derrell Cline, provided care and completed [facility] documentation on this patient. I have reviewed the student's documentation and agree with the findings.
[2022-01-21] VITALS (12 sets, daily range): BP systolic 82–93; BP diastolic 57–64; PULSE 71–105; RESP 16; TEMP 36.1–36.8; O2SAT 95–99
[2022-01-21] MEDS: ACETAMINOPHEN 325 MG TABLET 650 MG PO (04:43)
[2022-01-21] MEDS: MEXILETINE HCL 150 MG CAPSULE 300 MG PO ×3 (05:52→20:53)
[2022-01-21] MEDS: LEVOTHYROXINE SODIUM 25 MCG TABLET PO (05:52)
[2022-01-21 06:52] LABS: Basophils Percent Auto 0.7 % (0.2-1.2); Eosinophils Absolute Auto 0.1 K/mm3 (0-0.3); Eosinophils Percent Auto 2.3 % (0-4.4); Hematocrit 38.5 % (37.0-47.0); Hemoglobin 11.4 g/dL (12.0-15.0); Immature Granulocyte Absolute 0.03 K/mm3 (0.00-0.031); Immature Granulocyte Percent A 0.7 % (0-0.5); Lymphocytes Absolute Auto 0.68 K/mm3 (0.9-3.2); Lymphocytes Percent Auto 15.7 % (18.3-44.2); Mean Corpuscular HGB Conc 29.6 g/dl (32-36); Mean Corpuscular Hemoglobin 26.5 pg (26-34); Mean Corpuscular Volume 89.3 fl (80-100); Mean Platelet Volume 11.3 fl (7.4-10.4); Monocytes Absolute Auto 0.5 K/mm3 (0.1-0.6); Monocytes Percent Auto 10.4 % (2.6-8.5); Neutrophils Absolute Auto 3.1 K/mm3 (1.3-6.7); Neutrophils Percent Auto 70.2 % (45.5-73.1); Platelet Count Result 149 k/mm3 (150-375); Red Blood Count 4.31 M/mm3 (4.2-5.4); White Blood Count 4.3 K/mm3 (4.5-10.0)
[2022-01-21 06:59] LABS: Alanine Aminotransferase 11 U/L (4-35); Albumin Level 3.1 g/dL (3.5-5.1); Alkaline Phosphatase 73 U/L (38-126); Anion Gap 10 mmol/L (8-16); Aspartate Amino Transferase 22 U/L (14-36); Bilirubin,Total 2.1 mg/dL (0.2-1.3); Blood Urea Nitrogen 21 mg/dL (7-17); Carbon Dioxide 17 mmol/L (22-30); Chloride 106 mmol/L (98-107); Estimated CRCL calculation 29 ml/min; Estimated Glomerular Filt Rate 37; Glucose 195 mg/dL (65-110); Potassium 4.4 mmol/L (3.4-5.0); Sodium 133 mmol/L (137-145)
[2022-01-21 08:19] LABS: Ovalocytes 2+ (NORMAL); Platelet Estimate Adequate (Adequate)
[2022-01-21 08:20] LABS: Acanthocytes 1+ (NORMAL); Anisocytosis 3+ (NORMAL); Hypochromasia 1+ (NORMAL)
[2022-01-21] MEDS: HYDROcodone/acetaminophen (*CRX) 5-325 MG TABLET 1 TAB PO ×2 (09:12→17:12)
[2022-01-21] MEDS: APIXABAN 5 MG TABLET PO ×2 (09:12→17:12)
[2022-01-21] MEDS: GABAPENTIN 300 MG CAPSULE PO ×2 (09:12→17:12)
[2022-01-21] MEDS: ATORVASTATIN 40 MG TABLET PO (09:12)
[2022-01-21] MEDS: PANTOPRAZOLE 40 MG TABLET PO (09:12)
[2022-01-21] MEDS: SPIRONOLACTONE 12.5 MG TABLET PO (09:12)
--- NOTE | 2022-01-21 11:49 | PM.PNCARD ---
Progress Note: A&P Additional Plan 77-year-old woman with: History of dilated nonischemic cardiomyopathy came into this hospital after a fall sustaining a fracture of her left humerus. Her heart failure medications including Entresto metoprolol and spironolactone were placed on hold because of asymptomatic hypotension. I am going to try resuming her Entresto today a. Blood pressures are soft at times not remain stable if her medications are held indefinitely. We should attempt to resume some effective medication as long as she does not have/problematic hypotension. Cristian Bermudez MD [facility] Subjective Date/time seen: Date of service: 01/21/22 11:49 Interval history: Cardiology follow up for CHF s/p AICD, HTN, afib, DM, HLD, CVA. Date of service 01/21/2022: Patient is sleeping flat in bed when I came in the room to see her. Upon awakening she offers no cardiovascular complaints. Continues to report pain of course with her left upper extremity with motion. Exam Const: General: comfortable and no acute distress Other: Pleasant elderly lady appears to be a bit older than her stated age HENMT: Mouth: Yes moist mucous membranes and No dry mucous membranes Eyes: Sclera: sclerae normal Pupils: Equal, round and reactive pupils present Neck: Neck: supple and no JVD Other: Carotid pulses are intact bilaterally Resp: Effort & Inspection: normal respiratory effort Auscultation: clear to auscultation bilaterally Other: Patient has basilar rales Cardio: Rate: regular rate Rhythm: regular rhythm and abnormal rhythm irregularly irregular GI: Auscultation: normal bowel sounds Skin: General skin exam: normal color Neuro: Cranial nerves: Yes Equal, round and reactive pupils present Cognition (Neuro): normal cognition Extrem: Other: No significant peripheral edema. Left upper extremity in a sling Objective Data Vital Signs Vital Signs: Vital Signs - 24 hr 01/20/22 11:55 01/20/22 12:00 01/20/22 13:59 Temperature 36.4 C L 35.9 C L Pulse Rate 89 94 92 Respiratory Rate 18 18 Blood Pressure 92/63 L 102/21 L Pulse Oximetry 98 95 01/20/22 15:37 01/20/22 16:00 01/20/22 20:00 Temperature Pulse Rate 100 109 H 96 Respiratory Rate 16 Blood Pressure Pulse Oximetry 96 01/20/22 21:17 01/20/22 22:00 01/21/22 00:00 Temperature 36.1 C L Pulse Rate 109 H 97 96 Respiratory Rate 16 Blood Pressure 89/56 L Pulse Oximetry 96 01/21/22 04:00 01/21/22 05:52 01/21/22 06:00 Temperature 36.7 C Pulse Rate 101 H 96 71 Respiratory Rate 16 Blood Pressure 90/64 L Pulse Oximetry 96 Intake/Output Intake/Output: Intake & Output 01/18/22 01/19/22 01/20/22 01/21/22 23:59 23:59 23:59 23:59 Intake Total 1969 1640 2009 990 Output Total 500 Balance 1969 1639 2009 490 Meds/Results Medications: Active Medications Generic Name Dose Route Start Last Admin Trade Name Freq PRN Reason Stop Dose Admin Acetaminophen 650 mg 01/14/22 21:17 01/21/22 04:43 Acetaminophen 325 Mg Tablet PO 650 mg Q4H PRN Administration Mild Pain (1-3) or Fever Hydrocodone Bitart/Acetaminophen 1 tab 01/14/22 21:15 01/21/22 09:12 Hydrocodone/Acetaminophen (*Crx) 5-325 Mg Tablet PO 1 tab Q4HR PRN Administration pain Al Hydrox/Mg Hydrox/Simethicone 30 ml 01/14/22 21:17 Mag Hydrox/Al Hydrox/Simeth 30 Ml Udc PO QID PRN Dyspepsia Apixaban 5 mg 01/16/22 09:00 01/21/22 09:12 Apixaban 5 Mg Tablet PO 5 mg BID [place] Administration Atorvastatin Calcium 40 mg 01/16/22 09:00 01/21/22 09:12 Atorvastatin 40 Mg Tablet PO 40 mg DAILY [place] Administration Gabapentin 300 mg 01/16/22 09:00 01/21/22 09:12 Gabapentin 300 Mg Capsule PO 300 mg BID [place] Administration Ceftriaxone Sodium/Dextrose 1 gm in 50 mls @ 100 mls/hr 01/19/22 08:00 01/21/22 09:12 Rocephin 1 Gm/D5w 50 Ml IVPB 100 mls/hr Q24H [place] Administration Levothyroxine Sodium
--- NOTE | 2022-01-21 12:07 | PCOTNOTE ---
The patient treatment was not able to be completed at this time due to Patient very difficult to arouse. Per RN Patient has had increased pain medication and is unable to participate at this time. Will plan to continue treatment per plan of care when able to stay alert for functional activity.
[2022-01-21] MEDS: LIDOCAINE 5% PATCH 1 PATCH TRANSDERM ×2 (13:30)
--- NOTE | 2022-01-21 16:38 | PCPTNOTE ---
Attempted to see patient 2x today and patient was difficult to arouse from sleep to participate in therapy. PT will continue to follow per plan of care.
--- NOTE | 2022-01-21 17:57 | P.PNIM_ITS ---
Progress Note: A&P Assessment and Plan (1) Dizziness: Code(s): R42 - Dizziness and giddiness Status: Acute Assessment and Plan: -01/20/22: pt now c/o dizziness, blurry vision, double vision, and numbness in both of her arms. CT head was ordered stat. No focal neurological deficits noted aside from slightly decreased mortgage clerk strength LUE which is suspect is secondary to her fracture and her sling. -consider neuro consult pending results of CT and re evaluation of her symptoms (2) UTI (urinary tract infection): Code(s): N39.0 - Urinary tract infection, site not specified Status: Acute Assessment and Plan: -UA 01/17/22 did not look acutely infeted with 7-9 WBCs, trace leukocytes, and many squamous cells -culture came back 01/19/22 w/ group B strep -pt started on ceftriaxone #2 -could be contributing to her N/V and hypotension (3) Hypotension: Code(s): I95.9 - Hypotension, unspecified Status: Acute Assessment and Plan: -Considered narcotics contributing however she only received 1 dose of morphine 2 mg on 01/16/22 and has only had 3 norco 5/325s over the course of the past 48 hours. In any case I have held the morphine. -does have some chronic hypotension, most likely related to CHF Entresto, metoprolol, spironolactone. Her baseline seems to be in the 100s systolic -down to 80s systolic 01/17/22, decreased metoprolol to 6.25 mg -today 01/18/22 down 70s systolic. Held Entresto, spironolactone. Gave 500 ml bolus. -continue monitoring on telemetry -ordered EKG and echo -cardiology consulted for assistance in managing her cardiac medications, appreciate any recommendations -urine culture grew group B strep, hypotension secondary to infection? Pt was started on ceftriaxone. (4) Abdominal pain: Code(s): R10.9 - Unspecified abdominal pain Status: Acute Assessment and Plan: -elevated t bili 2.4, tenderness on exam, increased to 2.8 -LFTs normal -CT abd pelv without contrast shows cholelithiasis without cholecystitis -pt tender RUQ and having persistent nausea/vomiting despite zofran -RUQ US cholelithiasis no cholecystitis -discussed with Dr. Sheets GI who recommends HIDA scan, getting a direct bilirubin, and trying reglan for her N/V -direct bili 0 raising possibility of Gilbert's? -HIDA shows gallbladder ejection fraction in the lower range of normal. -Discussed with general surgery CERTIFIED PROFESSIONAL MIDWIFE Lorie who reviewed imaging with me and recommends consulting GI if symptoms persist as they likely would not consider emergent cholecystectomy as there do not appear to be any acute issues on imaging at this time. She would also be a very poor surgical candidate with her severe hypotension and EF of 20-25%. -Today her N/V/abd pain have resolved. I will advance to full liquids and reassess. (5) Fracture of neck of humerus: Qualifiers: Encounter type: initial encounter Fracture type: closed Laterality: left Qualified Code(s): S42.212A - Unspecified displaced fracture of surgical neck of left humerus, initial encounter for closed fracture Code(s): S42.213A - Unspecified displaced fracture of surgical neck of unspecified humerus, initial encounter for closed fracture Status: Acute Assessment and Plan: -Reviewed shoulder x-ray -Pain control -Orthopedic consult: no surgical intervention at this time, sling in place -pt needs SNF placement, unable to use L arm -caution with narcotics due to significant hypotension (6) Fracture of radial head, left, closed:
[2022-01-21] MEDS: SACUBITRIL/VALSARTAN 24-26 MG TABLET 1 TAB PO (22:25)
[2022-01-22] VITALS (16 sets, daily range): BP systolic 74–100; BP diastolic 48–66; PULSE 70–990; RESP 16–18; TEMP 35.7–36.8; O2SAT 97–100
[2022-01-22] MEDS: ACETAMINOPHEN 325 MG TABLET 650 MG PO (06:39)
[2022-01-22] MEDS: LEVOTHYROXINE SODIUM 25 MCG TABLET PO (06:40)
[2022-01-22] MEDS: MEXILETINE HCL 150 MG CAPSULE 300 MG PO ×3 (06:40→20:47)
[2022-01-22] MEDS: LIDOCAINE 5% PATCH 1 PATCH TRANSDERM ×2 (08:37)
[2022-01-22] MEDS: APIXABAN 5 MG TABLET PO ×2 (08:38→17:15)
[2022-01-22] MEDS: ATORVASTATIN 40 MG TABLET PO (08:38)
[2022-01-22] MEDS: GABAPENTIN 300 MG CAPSULE PO ×2 (08:38→17:15)
[2022-01-22] MEDS: PANTOPRAZOLE 40 MG TABLET PO (08:38)
[2022-01-22] MEDS: SPIRONOLACTONE 12.5 MG TABLET PO (08:38)
[2022-01-22] MEDS: SACUBITRIL/VALSARTAN 24-26 MG TABLET 1 TAB PO ×2 (09:53→20:47)
--- NOTE | 2022-01-22 12:01 | PM.PNCARD ---
Progress Note: A&P Assessment and Plan (1) Congestive heart failure: Code(s): I50.9 - Heart failure, unspecified <CARLOS Treviño - Last Filed: 01/22/22 14:18> Status: Acute <CARLOS Treviño - Last Filed: 01/22/22 14:18> Assessment and Plan: History of NICM. Recent echo shows EF 20-25% as well as moderate MR and severe TR. On medical therapy with Entresto, spironolactone, metoprolol. <CARLOS Treviño - Last Filed: 01/22/22 14:18> (2) Chronic a-fib: Code(s): I48.20 - Chronic atrial fibrillation, unspecified <CARLOS Treviño - Last Filed: 01/22/22 14:18> Status: Acute <CARLOS Treviño - Last Filed: 01/22/22 14:18> Assessment and Plan: Rate controlled on metoprolol, mexiletine. She is anticoagulated with apixaban. Has been referred for Watchman device in the past but was not interested in undergoing this procedure. <CARLOS Treviño - Last Filed: 01/22/22 14:18> (3) AICD (automatic cardioverter/defibrillator) present: Code(s): Z95.810 - Presence of automatic (implantable) cardiac defibrillator <CARLOS Treviño - Last Filed: 01/22/22 14:18> Status: Acute <CARLOS Treviño - Last Filed: 01/22/22 14:18> Assessment and Plan: Managed by Dr. Kapadia at [facility]. <CARLOS Treviño - Last Filed: 01/22/22 14:18> (4) Hypotension: Code(s): I95.9 - Hypotension, unspecified <CARLOS Treviño - Last Filed: 01/22/22 14:18> Status: Acute <CARLOS Treviño - Last Filed: 01/22/22 14:18> Assessment and Plan: She remains hypotensive but not more hypotensive than she has been throughout this hospitalization. Probably largely secondary to narcotic use. As discussed in previous notes we should make efforts to avoid holding her cardiac medications unless her hypotension is symptomatic/problematic. <CARLOS Treviño - Last Filed: 01/22/22 14:18> Additional Plan Attending addendum: I agree with the above documentation and plan of care as outlined. <Arturo Palma MD - Last Filed: 01/22/22 15:15> Subjective Date/time seen: 01/22/22 12:01 <CARLOS Treviño - Last Filed: 01/22/22 14:18> Interval history: Cardiology follow up for CHF s/p AICD, HTN, afib, DM, HLD, CVA. Date of service 01/21/2022: Patient is sleeping flat in bed when I came in the room to see her. Upon awakening she offers no cardiovascular complaints. Continues to report pain of course with her left upper extremity with motion. Date of service 01/22/2022: Feeling ok today but is still experiencing pain in her left upper extremity. She does experience occasional dizziness. <CARLOS Treviño - Last Filed: 01/22/22 14:18> Review of Systems Review of Systems: ROS unobtainable: Yes unobtainable due to mental status <CARLOS Treviño - Last Filed: 01/22/22 14:18> Exam Const: General: comfortable and no acute distress <CARLOS Treviño - Last Filed: 01/22/22 14:18> Other: Pleasant elderly lady appears to be a bit older than her stated age <CARLOS Treviño - Last Filed: 01/22/22 14:18> HENMT: Mouth: Yes moist mucous membranes and No dry mucous membranes <CARLOS Treviño - Last Filed: 01/22/22 14:18> Eyes: Sclera: sclerae normal <CARLOS Treviño - Last Filed: 01/22/22 14:18> Pupils: Equal, round and reactive pupils present <CARLOS Treviño - Last Filed: 01/22/22 14:18> Neck: Neck: supple and no JVD <CARLOS Treviño - Last Filed: 01/22/22 14:18> Resp: Effort & Inspection: normal respiratory effort <CARLOS Treviño - Last Filed: 01/22/22 14:18> Auscultation: crackles (faint crackles bilateral bases ) <CARLOS Treviño - Last Filed: 01/22/22 14:18> Cardio: Rate: regular rate <CARLOS Treviño - Last Filed: 01/22/22 14:18> Rhythm: abnormal rhythm an
[2022-01-22] MEDS: HYDROcodone/acetaminophen (*CRX) 5-325 MG TABLET 1 TAB PO ×2 (12:08→21:03)
--- NOTE | 2022-01-22 13:57 | PC.NURSE ---
soft bp's reported to MD Sebastian and Abi Waterman cardiology, nno, continue to monitor at this time.
[2022-01-23] VITALS (13 sets, daily range): BP systolic 89–100; BP diastolic 57–66; PULSE 70–107; RESP 16–18; TEMP 35.6–37.2; O2SAT 97–100; BMI 11.0
[2022-01-23] MEDS: MEXILETINE HCL 150 MG CAPSULE 300 MG PO ×3 (05:02→20:47)
[2022-01-23] MEDS: LEVOTHYROXINE SODIUM 25 MCG TABLET PO (05:02)
[2022-01-23] MEDS: OLANZapine 10 MG INJ VIAL 2.5 MG IM (11:22)
[2022-01-23] MEDS: PANTOPRAZOLE 40 MG TABLET PO (13:41)
[2022-01-23] MEDS: APIXABAN 5 MG TABLET PO (13:41)
[2022-01-23] MEDS: HYDROcodone/acetaminophen (*CRX) 5-325 MG TABLET 1 TAB PO ×2 (13:41→23:12)
[2022-01-23] MEDS: SACUBITRIL/VALSARTAN 24-26 MG TABLET 1 TAB PO ×2 (13:42→20:47)
[2022-01-23] MEDS: SPIRONOLACTONE 12.5 MG TABLET PO (13:42)
[2022-01-23] MEDS: GABAPENTIN 300 MG CAPSULE PO (13:42)
[2022-01-23] MEDS: ATORVASTATIN 40 MG TABLET PO (13:43)
--- NOTE | 2022-01-23 16:45 | PM.PNCARD ---
Progress Note: A&P Assessment and Plan (1) Congestive heart failure: Code(s): I50.9 - Heart failure, unspecified Status: Acute Assessment and Plan: History of NICM. Recent echo shows EF 20-25% as well as moderate MR and severe TR. On medical therapy with Entresto, spironolactone, metoprolol. Reasonably compensated. Patient has been refusing some of her medications intermittently. Will follow patient on as needed basis. Please do not hesitate to contact us with additional questions or concerns. (2) Chronic a-fib: Code(s): I48.20 - Chronic atrial fibrillation, unspecified Status: Acute Assessment and Plan: Rate controlled on metoprolol, mexiletine. She is anticoagulated with apixaban. She had previously been referred for Watchman device but was apparently not interested in undergoing this procedure. (3) AICD (automatic cardioverter/defibrillator) present: Code(s): Z95.810 - Presence of automatic (implantable) cardiac defibrillator Status: Acute Assessment and Plan: Managed by Dr. Kapadia at [facility]. She will follow-up with [facility] as an outpatient upon discharge. (4) Hypotension: Code(s): I95.9 - Hypotension, unspecified Status: Acute Assessment and Plan: She remains relatively hypotensive but stable an likely at her baseline. Continue to utilize cardiovascular medical therapy. Do not hold medications unless systolic blood pressure less than 80 mm Hg. Minimize narcotic pain medications as much as possible. As discussed in previous notes we should make efforts to avoid holding her cardiac medications unless her hypotension is symptomatic/problematic. (5) Confusion: Code(s): R41.0 - Disorientation, unspecified Status: Acute Assessment and Plan: Per primary service. Subjective Date/time seen: Date of service: 01/23/22 16:45 Interval history: Cardiology follow up for CHF s/p AICD, HTN, afib, DM, HLD, CVA. Date of service 01/21/2022: Patient is sleeping flat in bed when I came in the room to see her. Upon awakening she offers no cardiovascular complaints. Continues to report pain of course with her left upper extremity with motion. Date of service 01/22/2022: Feeling ok today but is still experiencing pain in her left upper extremity. She does experience occasional dizziness. Date of service 01/23/2022: Patient confused. Responding to questions with nonsensical answers, and crying intermittently. Patient states no one is helping her, everyone is mean to her. When asked to clarify she states no one will let her pee or get out of the bed within continues with nonsensical statements requiring redirection then she calms down. Nursing reports she has been more confused and has notify the primary service. Nursing reports she claims she can not move her right arm but then will move her arm and hand picker objects without any difficulty. They will attempt to move her to the commode and she refuses and apparently at one point threatened to hit someone. Nursing also reports patient had been refusing some of her medications. Review of Systems Review of Systems: All systems reviewed & are unremarkable except as noted in HPI and below ROS unobtainable: Yes unobtainable due to mental status Constitutional: Constitutional: Reports as per HPI Eyes: Eyes: Reports as per HPI ENT: Reports as per HPI Cardiovascular: Cardiovascular: Reports as per HPI and Denies chest pain Respiratory: Respiratory: Reports as per HPI and Denies dyspnea Gastrointestinal: Gastrointestinal: Reports as per HPI Genitourinary: Genitourinary: Reports as per HPI Musculoskeletal: Musculoskeletal: Reports as per HPI and Reports arthralgias Integumentary/Breasts: Skin/Breast: Reports as per HPI Neurologic: Reports as per HPI and Reports confusion Psychiatric: Psychiatric: Reports as per HPI and Repor
[2022-01-23] MEDS: ACETAMINOPHEN 325 MG TABLET 650 MG PO (20:54)
[2022-01-24] VITALS (11 sets, daily range): BP systolic 92–102; BP diastolic 50–71; PULSE 70–103; RESP 16; TEMP 35.9–36.9; O2SAT 96–99
[2022-01-24] MEDS: ACETAMINOPHEN 325 MG TABLET 650 MG PO ×2 (01:25→21:31)
[2022-01-24] MEDS: MEXILETINE HCL 150 MG CAPSULE 300 MG PO ×3 (05:45→21:22)
[2022-01-24] MEDS: LEVOTHYROXINE SODIUM 25 MCG TABLET PO (05:45)
[2022-01-24] MEDS: HYDROcodone/acetaminophen (*CRX) 5-325 MG TABLET 1 TAB PO (06:35)
[2022-01-24 09:12] LABS: Hematocrit 39.3 % (37.0-47.0); Hemoglobin 11.7 g/dL (12.0-15.0); Mean Corpuscular HGB Conc 29.8 g/dl (32-36); Mean Corpuscular Hemoglobin 25.9 pg (26-34); Mean Corpuscular Volume 86.9 fl (80-100); Mean Platelet Volume 11.2 fl (7.4-10.4); Platelet Count Result 157 k/mm3 (150-375); Red Blood Count 4.52 M/mm3 (4.2-5.4); Red Cell Distribution Width 20.7 % (11.5-14.5); White Blood Count 4.4 K/mm3 (4.5-10.0)
[2022-01-24 09:25] LABS: Anion Gap 5 mmol/L (8-16); Blood Urea Nitrogen 23 mg/dL (7-17); Calcium 8.4 mg/dL (8.4-10.2); Carbon Dioxide 24 mmol/L (22-30); Chloride 105 mmol/L (98-107); Estimated CRCL calculation 29 ml/min; Estimated Glomerular Filt Rate 37; Glucose 247 mg/dL (65-110); Potassium 5.1 mmol/L (3.4-5.0); Sodium 134 mmol/L (137-145)
[2022-01-24] MEDS: LIDOCAINE 5% PATCH 1 PATCH TRANSDERM ×2 (09:44)
[2022-01-24] MEDS: SACUBITRIL/VALSARTAN 24-26 MG TABLET 1 TAB PO (09:45)
[2022-01-24] MEDS: GABAPENTIN 300 MG CAPSULE PO ×2 (09:45→17:55)
[2022-01-24] MEDS: APIXABAN 5 MG TABLET PO ×2 (09:45→17:54)
[2022-01-24] MEDS: PANTOPRAZOLE 40 MG TABLET PO (09:45)
[2022-01-24] MEDS: ATORVASTATIN 40 MG TABLET PO (09:45)
[2022-01-24] MEDS: SPIRONOLACTONE 12.5 MG TABLET PO (09:46)
--- NOTE | 2022-01-24 10:46 | PM.IMPN ---
Progress Note: A&P Assessment and Plan (1) Dizziness: Code(s): R42 - Dizziness and giddiness Status: Acute Assessment and Plan: -01/20/22: pt now c/o dizziness, blurry vision, double vision, and numbness in both of her arms. CT head was ordered stat. No focal neurological deficits noted aside from slightly decreased client development director strength LUE which is suspect is secondary to her fracture and her sling. -consider neuro consult pending results of CT and re evaluation of her symptoms (2) UTI (urinary tract infection): Code(s): N39.0 - Urinary tract infection, site not specified Status: Acute Assessment and Plan: -UA 01/17/22 did not look acutely infeted with 7-9 WBCs, trace leukocytes, and many squamous cells -culture came back 01/19/22 w/ group B strep -pt started on ceftriaxone #2 -could be contributing to her N/V and hypotension (3) Hypotension: Code(s): I95.9 - Hypotension, unspecified Status: Acute Assessment and Plan: -Considered narcotics contributing however she only received 1 dose of morphine 2 mg on 01/16/22 and has only had 3 norco 5/325s over the course of the past 48 hours. In any case I have held the morphine. -does have some chronic hypotension, most likely related to CHF Entresto, metoprolol, spironolactone. Her baseline seems to be in the 100s systolic -down to 80s systolic 01/17/22, decreased metoprolol to 6.25 mg -today 01/18/22 down 70s systolic. Held Entresto, spironolactone. Gave 500 ml bolus. -continue monitoring on telemetry -ordered EKG and echo -cardiology consulted for assistance in managing her cardiac medications, appreciate any recommendations -urine culture grew group B strep, hypotension secondary to infection? Pt was started on ceftriaxone. (4) Abdominal pain: Code(s): R10.9 - Unspecified abdominal pain Status: Acute Assessment and Plan: -elevated t bili 2.4, tenderness on exam, increased to 2.8 -LFTs normal -CT abd pelv without contrast shows cholelithiasis without cholecystitis -pt tender RUQ and having persistent nausea/vomiting despite zofran -RUQ US cholelithiasis no cholecystitis -discussed with Dr. Sheets GI who recommends HIDA scan, getting a direct bilirubin, and trying reglan for her N/V -direct bili 0 raising possibility of Gilbert's? -HIDA shows gallbladder ejection fraction in the lower range of normal. -Discussed with general surgery CARDIOLOGY TEACHER Lorie who reviewed imaging with me and recommends consulting GI if symptoms persist as they likely would not consider emergent cholecystectomy as there do not appear to be any acute issues on imaging at this time. She would also be a very poor surgical candidate with her severe hypotension and EF of 20-25%. -Today her N/V/abd pain have resolved. I will advance to full liquids and reassess. (5) Fracture of neck of humerus: Qualifiers: Encounter type: initial encounter Fracture type: closed Laterality: left Qualified Code(s): S42.212A - Unspecified displaced fracture of surgical neck of left humerus, initial encounter for closed fracture Code(s): S42.213A - Unspecified displaced fracture of surgical neck of unspecified humerus, initial encounter for closed fracture Status: Acute Assessment and Plan: -Reviewed shoulder x-ray -Pain control -Orthopedic consult: no surgical intervention at this time, sling in place -pt needs SNF placement, unable to use L arm -caution with narcotics due to significant hypotension (6) Fracture of radial head, left, closed: Qualifiers: Encounter type: initial encounter Fracture alignment: nondisplaced Qualified Code(s): S52.125A - Nondisplaced fracture of head of left radius, initial encounter for closed fracture Code(s): S52.122A - Displaced fracture of head of left radius, initial encounter for closed fracture Status: Acute Assessment and Plan: -Pain cont
[2022-01-25] VITALS (9 sets, daily range): BP systolic 96–107; BP diastolic 54–79; PULSE 90–106; RESP 16–18; TEMP 36.4–36.7; O2SAT 98–99
[2022-01-25] MEDS: MEXILETINE HCL 150 MG CAPSULE 300 MG PO ×3 (05:27→20:15)
[2022-01-25] MEDS: LEVOTHYROXINE SODIUM 25 MCG TABLET PO (05:28)
[2022-01-25 06:21] LABS: Hematocrit 40.6 % (37.0-47.0); Hemoglobin 12.2 g/dL (12.0-15.0); Mean Corpuscular Volume 86.6 fl (80-100); Platelet Count Result 166 k/mm3 (150-375); Red Blood Count 4.69 M/mm3 (4.2-5.4); White Blood Count 4.8 K/mm3 (4.5-10.0)
[2022-01-25 06:35] LABS: Anion Gap 7 mmol/L (8-16); Blood Urea Nitrogen 19 mg/dL (7-17); Calcium 8.5 mg/dL (8.4-10.2); Carbon Dioxide 24 mmol/L (22-30); Chloride 104 mmol/L (98-107); Estimated CRCL calculation 34 ml/min; Estimated Glomerular Filt Rate 44; Glucose 219 mg/dL (65-110); Potassium 4.7 mmol/L (3.4-5.0); Sodium 135 mmol/L (137-145)
[2022-01-25] MEDS: PANTOPRAZOLE 40 MG TABLET PO (10:04)
[2022-01-25] MEDS: SACUBITRIL/VALSARTAN 24-26 MG TABLET 1 TAB PO ×2 (10:04→20:15)
[2022-01-25] MEDS: SPIRONOLACTONE 12.5 MG TABLET PO (10:05)
[2022-01-25] MEDS: LIDOCAINE 5% PATCH 1 PATCH TRANSDERM ×2 (10:05)
[2022-01-25] MEDS: APIXABAN 5 MG TABLET PO ×2 (10:05→17:13)
[2022-01-25] MEDS: GABAPENTIN 300 MG CAPSULE PO ×2 (10:05→17:13)
[2022-01-25] MEDS: ATORVASTATIN 40 MG TABLET PO (10:05)
[2022-01-25] MEDS: ACETAMINOPHEN 325 MG TABLET 650 MG PO (20:13)
[2022-01-26] VITALS (11 sets, daily range): BP systolic 94–104; BP diastolic 62–70; PULSE 84–107; RESP 18–19; TEMP 35.9–36.8; O2SAT 96–100; BMI 10.0
[2022-01-26] MEDS: ACETAMINOPHEN 325 MG TABLET 650 MG PO ×3 (03:49→20:25)
[2022-01-26] MEDS: MEXILETINE HCL 150 MG CAPSULE 300 MG PO ×3 (05:53→20:59)
[2022-01-26] MEDS: LEVOTHYROXINE SODIUM 25 MCG TABLET PO (05:53)
[2022-01-26 05:56] LABS: Hematocrit 39.1 % (37.0-47.0); Hemoglobin 11.9 g/dL (12.0-15.0); Mean Corpuscular HGB Conc 30.4 g/dl (32-36); Mean Corpuscular Hemoglobin 25.7 pg (26-34); Mean Corpuscular Volume 84.4 fl (80-100); Mean Platelet Volume 10.9 fl (7.4-10.4); Platelet Count Result 172 k/mm3 (150-375); Red Blood Count 4.63 M/mm3 (4.2-5.4); White Blood Count 4.3 K/mm3 (4.5-10.0)
[2022-01-26 06:07] LABS: Anion Gap 4 mmol/L (8-16); Blood Urea Nitrogen 16 mg/dL (7-17); Calcium 8.4 mg/dL (8.4-10.2); Carbon Dioxide 24 mmol/L (22-30); Chloride 106 mmol/L (98-107); Estimated CRCL calculation 40 ml/min; Estimated Glomerular Filt Rate 54; Glucose 208 mg/dL (65-110); Potassium 4.4 mmol/L (3.4-5.0); Sodium 134 mmol/L (137-145)
[2022-01-26] MEDS: LIDOCAINE 5% PATCH 1 PATCH TRANSDERM ×2 (09:25)
[2022-01-26] MEDS: ATORVASTATIN 40 MG TABLET PO (09:25)
[2022-01-26] MEDS: APIXABAN 5 MG TABLET PO ×2 (09:25→17:19)
[2022-01-26] MEDS: SPIRONOLACTONE 12.5 MG TABLET PO (09:25)
[2022-01-26] MEDS: PANTOPRAZOLE 40 MG TABLET PO (09:26)
[2022-01-26] MEDS: SACUBITRIL/VALSARTAN 24-26 MG TABLET 1 TAB PO ×2 (09:26→20:59)
[2022-01-26] MEDS: GABAPENTIN 300 MG CAPSULE PO ×2 (09:26→17:19)
--- NOTE | 2022-01-26 09:27 | PM.PNCARD ---
Progress Note: A&P Assessment and Plan (1) Congestive heart failure: Code(s): I50.9 - Heart failure, unspecified Status: Acute Assessment and Plan: History of NICM. Recent echo shows EF 20-25% as well as moderate MR and severe TR. On medical therapy with Entresto, spironolactone, metoprolol. Reasonably compensated. She does have some edema. Will give her 20mg furosemide IV now and will order compression stockings. OK for discahrge today from a cardiac perspective with outpatient follow up with her primary tower truck driver at [facility] (2) Chronic a-fib: Code(s): I48.20 - Chronic atrial fibrillation, unspecified Status: Acute Assessment and Plan: Rate controlled on metoprolol, mexiletine. She is anticoagulated with apixaban. She had previously been referred for Watchman device but was apparently not interested in undergoing this procedure. (3) AICD (automatic cardioverter/defibrillator) present: Code(s): Z95.810 - Presence of automatic (implantable) cardiac defibrillator Status: Acute Assessment and Plan: Managed by Dr. Kapadia at [facility]. She will follow-up with [facility] as an outpatient upon discharge. (4) Hypotension: Code(s): I95.9 - Hypotension, unspecified Status: Acute Assessment and Plan: She remains relatively hypotensive but stable an likely at her baseline. Continue to utilize cardiovascular medical therapy. Do not hold medications unless systolic blood pressure less than 80 mm Hg. Minimize narcotic pain medications as much as possible. As discussed in previous notes we should make efforts to avoid holding her cardiac medications unless her hypotension is symptomatic/problematic. (5) Confusion: Code(s): R41.0 - Disorientation, unspecified Status: Acute Assessment and Plan: Per primary service. Subjective Date/time seen: 01/26/22 09:27 Interval history: Cardiology follow up for CHF s/p AICD, HTN, afib, DM, HLD, CVA. Date of service 01/21/2022: Patient is sleeping flat in bed when I came in the room to see her. Upon awakening she offers no cardiovascular complaints. Continues to report pain of course with her left upper extremity with motion. Date of service 01/22/2022: Feeling ok today but is still experiencing pain in her left upper extremity. She does experience occasional dizziness. Date of service 01/23/2022: Patient confused. Responding to questions with nonsensical answers, and crying intermittently. Patient states no one is helping her, everyone is mean to her. When asked to clarify she states no one will let her pee or get out of the bed within continues with nonsensical statements requiring redirection then she calms down. Nursing reports she has been more confused and has notify the primary service. Nursing reports she claims she can not move her right arm but then will move her arm and picker feeder objects without any difficulty. They will attempt to move her to the commode and she refuses and apparently at one point threatened to hit someone. Nursing also reports patient had been refusing some of her medications. Date of service 01/26/2022: She is feeling much better today. States her pain has improved. She does not have any shortness of breath or chest pain but does say she feels palpitations from time to time. Review of Systems Review of Systems: All systems reviewed & are unremarkable except as noted in HPI and below ROS unobtainable: Yes unobtainable due to mental status Constitutional: Constitutional: Reports as per HPI Eyes: Eyes: Reports as per HPI ENT: Reports as per HPI Cardiovascular: Cardiovascular: Reports as per HPI, Denies chest pain and Denies dyspnea Respiratory: Respiratory: Reports as per HPI and Denies dyspnea Gastrointestinal: Gastrointestinal: Reports as per HPI Genitourinary: Genitourinary: Reports as per HPI Musculosk
[2022-01-26] MEDS: FUROSEMIDE INJ 40 MG/4 ML VIAL 20 MG IV PUSH (13:52)
--- NOTE | 2022-01-26 21:55 | PC.NURSE ---
While attempting to ambulate back to bed from toilet, pt yells I cant do it, my arms hurts to badly , pt bends at the waist and tries to sit down, nurse and CORONER TRANSPORT TECHNICIAN hold her up while other nurse retrieves a wheelchair to assist her back to bed.
[2022-01-27] VITALS (13 sets, daily range): BP systolic 91–110; BP diastolic 61–72; PULSE 60–105; RESP 16–20; TEMP 36.2–36.4; O2SAT 92–100
[2022-01-27 06:18] LABS: Hematocrit 38.4 % (37.0-47.0); Hemoglobin 11.5 g/dL (12.0-15.0); Mean Corpuscular HGB Conc 29.9 g/dl (32-36); Mean Corpuscular Hemoglobin 25.7 pg (26-34); Mean Corpuscular Volume 85.7 fl (80-100); Mean Platelet Volume 11.1 fl (7.4-10.4); Platelet Count Result 149 k/mm3 (150-375); Red Blood Count 4.48 M/mm3 (4.2-5.4); Red Cell Distribution Width 20.8 % (11.5-14.5); White Blood Count 4.2 K/mm3 (4.5-10.0)
[2022-01-27] MEDS: LEVOTHYROXINE SODIUM 25 MCG TABLET PO (06:31)
[2022-01-27] MEDS: ACETAMINOPHEN 325 MG TABLET 650 MG PO ×2 (06:31→13:11)
[2022-01-27] MEDS: MEXILETINE HCL 150 MG CAPSULE 300 MG PO ×3 (06:31→20:14)
[2022-01-27 06:38] LABS: Anion Gap 6 mmol/L (8-16); Blood Urea Nitrogen 18 mg/dL (7-17); Calcium 8.2 mg/dL (8.4-10.2); Carbon Dioxide 21 mmol/L (22-30); Chloride 106 mmol/L (98-107); Estimated CRCL calculation 40 ml/min; Estimated Glomerular Filt Rate 54; Glucose 230 mg/dL (65-110); Potassium 4.4 mmol/L (3.4-5.0); Sodium 133 mmol/L (137-145)
[2022-01-27] MEDS: APIXABAN 5 MG TABLET PO ×2 (08:38→17:06)
[2022-01-27] MEDS: GABAPENTIN 300 MG CAPSULE PO ×2 (08:38→17:06)
[2022-01-27] MEDS: PANTOPRAZOLE 40 MG TABLET PO (08:38)
[2022-01-27] MEDS: SPIRONOLACTONE 12.5 MG TABLET PO (08:38)
[2022-01-27] MEDS: SACUBITRIL/VALSARTAN 24-26 MG TABLET 1 TAB PO ×2 (08:38→20:14)
[2022-01-27] MEDS: ATORVASTATIN 40 MG TABLET PO (08:39)
[2022-01-27] MEDS: LIDOCAINE 5% PATCH 1 PATCH TRANSDERM ×2 (08:40)
--- NOTE | 2022-01-27 12:33 | PM.IMPN ---
Progress Note: A&P Assessment and Plan (1) Confusion: Code(s): R41.0 - Disorientation, unspecified Status: Acute (2) Dizziness: Code(s): R42 - Dizziness and giddiness Status: Acute (3) UTI (urinary tract infection): Code(s): N39.0 - Urinary tract infection, site not specified Status: Acute (4) Abdominal pain: Code(s): R10.9 - Unspecified abdominal pain Status: Acute (5) Chronic a-fib: Code(s): I48.20 - Chronic atrial fibrillation, unspecified Status: Acute (6) Fracture of neck of humerus: Qualifiers: Encounter type: initial encounter Fracture type: closed Laterality: left Qualified Code(s): S42.212A - Unspecified displaced fracture of surgical neck of left humerus, initial encounter for closed fracture Code(s): S42.213A - Unspecified displaced fracture of surgical neck of unspecified humerus, initial encounter for closed fracture Status: Acute (7) Fracture of radial head, left, closed: Qualifiers: Encounter type: initial encounter Fracture alignment: nondisplaced Qualified Code(s): S52.125A - Nondisplaced fracture of head of left radius, initial encounter for closed fracture Code(s): S52.122A - Displaced fracture of head of left radius, initial encounter for closed fracture Status: Acute (8) Pacemaker: Code(s): Z95.0 - Presence of cardiac pacemaker Status: Acute (9) Hypotension: Code(s): I95.9 - Hypotension, unspecified Status: Acute (10) Hyperlipidemia: Code(s): E78.5 - Hyperlipidemia, unspecified Status: Acute (11) Diabetes mellitus: Code(s): E11.9 - Type 2 diabetes mellitus without complications Status: Acute (12) AICD (automatic cardioverter/defibrillator) present: Code(s): Z95.810 - Presence of automatic (implantable) cardiac defibrillator Status: Acute (13) Congestive heart failure: Code(s): I50.9 - Heart failure, unspecified Status: Acute Additional Plan placement for rehab vs home with daughter to care for her??? - PT/OT 01/26/22 16:05 01/21/2022 interval history: patient is 77-year-old female with history of nonischemic cardiomyopathy cardiac echo showed ejection fraction 20-25%, there is vent wall motion abnormality as well as diastolic dysfunction patient came to emergency department after she fell and has a left humerus fracture in by orthopedic surgeon recommended conservative management, upon arrival patient was hypotensive and her blood pressure medications entresto, metoprolol and spironolactone were held however patient was seen by her bead stringer recommended and started the patient entresto as patient has crackles on examination, patient main complaint is pain in her left humeral with any movement will apply the Lidoderm patches will continue to monitor. 01/22/2022 interval history: patient is 77-year-old female with history of nonischemic cardiomyopathy cardiac echo showed ejection fraction 20-25%, there is wall motion abnormality as well as diastolic dysfunction patient came to emergency department after she fell and has a left humerus fracture seen by orthopedic surgeon recommended conservative management, upon arrival patient was hypotensive and her blood pressure medications entresto, metoprolol and spironolactone were held however on 01/21 patient was seen by her bead stringer recommended and started the patient entresto as patient has crackles on examination, today patient clinically stable however patient blood pressure remains soft, patient will be seen by bead stringer and further recommendation to follow, patient main complaint was pain in her left humerus with any movement applied the Lidoderm patches, today pain is little better, will continue to monitor. 01/23/2022 interval history: patient is 77-year-old female with history of nonischemic cardiomyopathy cardiac echo showed ejection fraction 20-25
[2022-01-28] VITALS (12 sets, daily range): BP systolic 88–97; BP diastolic 63–71; PULSE 53–115; RESP 16–18; TEMP 36.1–36.2; O2SAT 97–100
[2022-01-28] MEDS: MEXILETINE HCL 150 MG CAPSULE 300 MG PO ×3 (06:12→21:20)
[2022-01-28] MEDS: LEVOTHYROXINE SODIUM 25 MCG TABLET PO (06:12)
[2022-01-28] MEDS: ACETAMINOPHEN 325 MG TABLET 650 MG PO (06:12)
[2022-01-28 06:31] LABS: Hematocrit 41.2 % (37.0-47.0); Hemoglobin 12.2 g/dL (12.0-15.0); Mean Corpuscular HGB Conc 29.6 g/dl (32-36); Mean Corpuscular Hemoglobin 25.9 pg (26-34); Mean Corpuscular Volume 87.5 fl (80-100); Mean Platelet Volume 10.9 fl (7.4-10.4); Platelet Count Result 168 k/mm3 (150-375); Red Blood Count 4.71 M/mm3 (4.2-5.4); Red Cell Distribution Width 21.2 % (11.5-14.5); White Blood Count 4.4 K/mm3 (4.5-10.0)
[2022-01-28 06:40] LABS: Anion Gap 3 mmol/L (8-16); Blood Urea Nitrogen 20 mg/dL (7-17); Calcium 8.4 mg/dL (8.4-10.2); Carbon Dioxide 29 mmol/L (22-30); Chloride 103 mmol/L (98-107); Estimated CRCL calculation 40 ml/min; Estimated Glomerular Filt Rate 54; Glucose 253 mg/dL (65-110); Potassium 4.9 mmol/L (3.4-5.0); Sodium 135 mmol/L (137-145)
[2022-01-28] MEDS: SACUBITRIL/VALSARTAN 24-26 MG TABLET 1 TAB PO ×2 (08:38→21:20)
[2022-01-28] MEDS: GABAPENTIN 300 MG CAPSULE PO ×2 (08:38→17:02)
[2022-01-28] MEDS: SPIRONOLACTONE 12.5 MG TABLET PO (08:38)
[2022-01-28] MEDS: PANTOPRAZOLE 40 MG TABLET PO (08:38)
[2022-01-28] MEDS: LIDOCAINE 5% PATCH 1 PATCH TRANSDERM ×2 (08:40)
[2022-01-28] MEDS: APIXABAN 5 MG TABLET PO ×2 (08:40→17:02)
[2022-01-28] MEDS: ATORVASTATIN 40 MG TABLET PO (08:40)
[2022-01-28 10:06] LABS: Hemoglobin A1C 8.6 % (<5.7)
[2022-01-28 12:12] LABS: Glucose Point of Care 255 mg/dl (65-105)
[2022-01-28] MEDS: INSULIN ASPART (*BKC) 100 UNITS/ML SUB-Q ×2 (12:19→17:02)
--- NOTE | 2022-01-28 14:21 | PC.NURSE ---
On 01/28/22, the student, Radha Limon, provided care and completed [facility] documentation on this patient. I have reviewed the student's documentation and agree with the findings.
--- NOTE | 2022-01-28 16:45 | PM.IMPN ---
Progress Note: A&P Assessment and Plan (1) Confusion: Code(s): R41.0 - Disorientation, unspecified Status: Acute (2) Dizziness: Code(s): R42 - Dizziness and giddiness Status: Acute (3) UTI (urinary tract infection): Code(s): N39.0 - Urinary tract infection, site not specified Status: Acute (4) Abdominal pain: Code(s): R10.9 - Unspecified abdominal pain Status: Acute (5) Chronic a-fib: Code(s): I48.20 - Chronic atrial fibrillation, unspecified Status: Acute (6) Fracture of neck of humerus: Qualifiers: Encounter type: initial encounter Fracture type: closed Laterality: left Qualified Code(s): S42.212A - Unspecified displaced fracture of surgical neck of left humerus, initial encounter for closed fracture Code(s): S42.213A - Unspecified displaced fracture of surgical neck of unspecified humerus, initial encounter for closed fracture Status: Acute (7) Fracture of radial head, left, closed: Qualifiers: Encounter type: initial encounter Fracture alignment: nondisplaced Qualified Code(s): S52.125A - Nondisplaced fracture of head of left radius, initial encounter for closed fracture Code(s): S52.122A - Displaced fracture of head of left radius, initial encounter for closed fracture Status: Acute (8) Pacemaker: Code(s): Z95.0 - Presence of cardiac pacemaker Status: Acute (9) Hypotension: Code(s): I95.9 - Hypotension, unspecified Status: Acute (10) Hyperlipidemia: Code(s): E78.5 - Hyperlipidemia, unspecified Status: Acute (11) Diabetes mellitus: Code(s): E11.9 - Type 2 diabetes mellitus without complications Status: Acute (12) AICD (automatic cardioverter/defibrillator) present: Code(s): Z95.810 - Presence of automatic (implantable) cardiac defibrillator Status: Acute (13) Congestive heart failure: Code(s): I50.9 - Heart failure, unspecified Status: Acute Additional Plan placement for rehab vs home with daughter to care for her??? - PT/OT 01/26/22 16:05 01/21/2022 interval history: patient is 77-year-old female with history of nonischemic cardiomyopathy cardiac echo showed ejection fraction 20-25%, there is vent wall motion abnormality as well as diastolic dysfunction patient came to emergency department after she fell and has a left humerus fracture in by orthopedic surgeon recommended conservative management, upon arrival patient was hypotensive and her blood pressure medications entresto, metoprolol and spironolactone were held however patient was seen by her wire drawing machine operator recommended and started the patient entresto as patient has crackles on examination, patient main complaint is pain in her left humeral with any movement will apply the Lidoderm patches will continue to monitor. 01/22/2022 interval history: patient is 77-year-old female with history of nonischemic cardiomyopathy cardiac echo showed ejection fraction 20-25%, there is wall motion abnormality as well as diastolic dysfunction patient came to emergency department after she fell and has a left humerus fracture seen by orthopedic surgeon recommended conservative management, upon arrival patient was hypotensive and her blood pressure medications entresto, metoprolol and spironolactone were held however on 01/21 patient was seen by her wire drawing machine operator recommended and started the patient entresto as patient has crackles on examination, today patient clinically stable however patient blood pressure remains soft, patient will be seen by wire drawing machine operator and further recommendation to follow, patient main complaint was pain in her left humerus with any movement applied the Lidoderm patches, today pain is little better, will continue to monitor. 01/23/2022 interval history: patient is 77-year-old female with history of nonischemic cardiomyopathy cardiac echo showed ejection fraction 20-25
[2022-01-28 16:52] LABS: Glucose Point of Care 229 mg/dl (65-105)
[2022-01-28] MEDS: INSULIN GLARGINE (*BKC) 100 UNITS/ML SUB-Q (21:22)
[2022-01-28 21:34] LABS: Glucose Point of Care 278 mg/dl (65-105)
[2022-01-29] VITALS (7 sets, daily range): BP systolic 97; BP diastolic 78; PULSE 75–98; RESP 16; TEMP 36.2; O2SAT 98
[2022-01-29] MEDS: LEVOTHYROXINE SODIUM 25 MCG TABLET PO (05:31)
[2022-01-29] MEDS: MEXILETINE HCL 150 MG CAPSULE 300 MG PO ×2 (05:31→14:11)
[2022-01-29 06:25] LABS: Hematocrit 39.3 % (37.0-47.0); Hemoglobin 11.8 g/dL (12.0-15.0); Mean Corpuscular Hemoglobin 25.8 pg (26-34); Mean Platelet Volume 11.1 fl (7.4-10.4); Platelet Count Result 156 k/mm3 (150-375); Red Blood Count 4.57 M/mm3 (4.2-5.4); Red Cell Distribution Width 21.2 % (11.5-14.5); White Blood Count 4.3 K/mm3 (4.5-10.0)
[2022-01-29 06:36] LABS: Anion Gap 5 mmol/L (8-16); Blood Urea Nitrogen 18 mg/dL (7-17); Calcium 8.1 mg/dL (8.4-10.2); Carbon Dioxide 23 mmol/L (22-30); Chloride 105 mmol/L (98-107); Estimated CRCL calculation 50 ml/min; Estimated Glomerular Filt Rate > 60; Glucose 187 mg/dL (65-110); Potassium 5.2 mmol/L (3.4-5.0); Sodium 133 mmol/L (137-145)
[2022-01-29] MEDS: APIXABAN 5 MG TABLET PO ×2 (08:42→16:48)
[2022-01-29] MEDS: SPIRONOLACTONE 12.5 MG TABLET PO (08:43)
[2022-01-29] MEDS: ATORVASTATIN 40 MG TABLET PO (08:43)
[2022-01-29] MEDS: SACUBITRIL/VALSARTAN 24-26 MG TABLET 1 TAB PO (08:43)
[2022-01-29] MEDS: GABAPENTIN 300 MG CAPSULE PO ×2 (08:43→16:48)
[2022-01-29] MEDS: PANTOPRAZOLE 40 MG TABLET PO (08:43)
[2022-01-29] MEDS: LIDOCAINE 5% PATCH 1 PATCH TRANSDERM ×2 (08:44)
[2022-01-29 11:33] LABS: Glucose Point of Care 253 mg/dl (65-105)
--- NOTE | 2022-01-29 12:16 | PM.DS ---
DS: Admitting Diagnosis Discharge Date 01/29/22 Admitting Diagnosis (1) Fracture of neck of humerus: Qualifiers: Encounter type: initial encounter Fracture type: closed Laterality: left Qualified Code(s): S42.212A - Unspecified displaced fracture of surgical neck of left humerus, initial encounter for closed fracture Code(s): S42.213A - Unspecified displaced fracture of surgical neck of unspecified humerus, initial encounter for closed fracture Status: Acute Assessment and Plan: Reviewed shoulder x-ray Pain control Orthopedic consult NPO after midnight Hold Eliquis for now pending surgery evaluation (2) Fracture of radial head, left, closed: Qualifiers: Encounter type: initial encounter Fracture alignment: nondisplaced Qualified Code(s): S52.125A - Nondisplaced fracture of head of left radius, initial encounter for closed fracture Code(s): S52.122A - Displaced fracture of head of left radius, initial encounter for closed fracture Status: Acute Assessment and Plan: Pain control Orthopedic consult Hold Eliquis for now pending orthopedic surgery evaluation (3) AICD (automatic cardioverter/defibrillator) present: Code(s): Z95.810 - Presence of automatic (implantable) cardiac defibrillator Status: Acute Assessment and Plan: Pacemaker check ordered (4) Hyperlipidemia: Code(s): E78.5 - Hyperlipidemia, unspecified Status: Acute Assessment and Plan: Pending home medication patient on statin at home (5) Hypotension: Code(s): I95.9 - Hypotension, unspecified Status: Acute Assessment and Plan: Chronic most likely related to CHF Entresto stashed metoprolol continue to monitor (6) Congestive heart failure: Code(s): I50.9 - Heart failure, unspecified Status: Acute Assessment and Plan: Stable avoid fluid overload Pending reconciliation of home medication Give gentle IV hydration DC IV fluid in a.m. (7) Chronic a-fib: Code(s): I48.20 - Chronic atrial fibrillation, unspecified Status: Acute Assessment and Plan: Patient on Eliquis at home hold for possible surgical intervention Patient on metoprolol at home pending confirmation of home medication Home medication was not ordered at it was not confirmed yet DS: Discharge Diagnosis Discharge Diagnosis (1) Confusion: Code(s): R41.0 - Disorientation, unspecified Status: Acute (2) Dizziness: Code(s): R42 - Dizziness and giddiness Status: Acute (3) UTI (urinary tract infection): Code(s): N39.0 - Urinary tract infection, site not specified Status: Acute (4) Abdominal pain: Code(s): R10.9 - Unspecified abdominal pain Status: Acute (5) Chronic a-fib: Code(s): I48.20 - Chronic atrial fibrillation, unspecified Status: Acute (6) Fracture of neck of humerus: Qualifiers: Encounter type: initial encounter Fracture type: closed Laterality: left Qualified Code(s): S42.212A - Unspecified displaced fracture of surgical neck of left humerus, initial encounter for closed fracture Code(s): S42.213A - Unspecified displaced fracture of surgical neck of unspecified humerus, initial encounter for closed fracture Status: Acute (7) Fracture of radial head, left, closed: Qualifiers: Encounter type: initial encounter Fracture alignment: nondisplaced Qualified Code(s): S52.125A - Nondisplaced fracture of head of left radius, initial encounter for closed fracture Code(s): S52.122A - Displaced fracture of head of left radius, initial encounter for closed fracture Status: Acute (8) AICD (automatic cardioverter/defibrillator) present: Code(s): Z95.810 - Presence of automatic (implantable) cardiac defibrillator Status: Acute (9) Diabetes mellitus: Code(s): E11.9 - Type 2 diabetes mellitus without complications Status: A
[2022-01-29] MEDS: INSULIN ASPART (*BKC) 100 UNITS/ML SUB-Q ×2 (12:40→16:48)
--- NOTE | 2022-01-29 12:51 | PCNWS ---
Weekly nutritional screen. Patient is tolerating current diet, Heart healthy/ soft and bite-sized, with adequate intake - 50,75,85%. No weight loss reported. +BM /. No nutritional needs at this time.
[2022-01-29 13:47] LABS: Glucose Point of Care 179 mg/dl (65-105)
[2022-01-29 15:28] LABS: EDCOVIDSCREEN Negative (Negative)
[2022-01-29 16:39] LABS: Glucose Point of Care 278 mg/dl (65-105)
== END 2022-01-29 18:02 | DRG 563 ==
LOC: ANHED 20:14 → ANH3MEDSUR 22:57
PROVIDERS: Family Medicine; Nurse Practitioner Adult Health; Physician Assistant; Admitting Provider Internal Medicine; Emergency Provider Emergency Medicine; Visit Provider Hospitalist
DX: S42.292A Other displaced fracture of upper end of left humerus, initial encounter for closed fracture (principal); I42.9 Cardiomyopathy, unspecified; I48.20 Chronic atrial fibrillation, unspecified; N39.0 Urinary tract infection, site not specified; I50.42 Chronic combined systolic (congestive) and diastolic (congestive) heart failure; S52.125A Nondisplaced fracture of head of left radius, initial encounter for closed fracture; Z20.822 Contact with and (suspected) exposure to COVID-19; I50.9 Heart failure, unspecified; B95.1 Streptococcus, group B, as the cause of diseases classified elsewhere; W06.XXXA Fall from bed, initial encounter; R42 Dizziness and giddiness; I95.89 Other hypotension; E11.9 Type 2 diabetes mellitus without complications; E78.5 Hyperlipidemia, unspecified; K80.20 Calculus of gallbladder without cholecystitis without obstruction; Z95.810 Presence of automatic (implantable) cardiac defibrillator; Z79.01 Long term (current) use of anticoagulants; Z86.73 Personal history of transient ischemic attack (TIA), and cerebral infarction without residual deficits
CPT/HCPCS: 36415; 70450; 72125; 73030; 73080; 73100; 73630; 74176; 76705; 78227; 80048; 80053; 81001; 82248; 82550; 82948; 83036; 83690; 84443; 85025; 85027; 85055; 87086; 87088; 87147; 87426; 93005; 93306; 93970; 96361; 96365; 96372; 96375; 96376; 97110; 97116; 97161; 97166; 97530; 97535; 99285; A4565; A9270; A9537; C9803; G0378; J0131; J0696; J1644; J1815; J1940; J2270; J2405; J2765; J2805; J3010; J7030; J7040; U0003; U0005

== ENCOUNTER 2022-05-15 18:02 | Inpatient (IN) | payer MEDICARE, MEDICAID, SELFPAY ==
--- NOTE | ~2022-05-15 | US_ITS ---
EXAMINATION: US renal BI DATE: 05/24/2022 11:23 INDICATION: Elevated creatinine TECHNIQUE: Multiple ultrasound grayscale images of the kidneys were obtained. COMPARISON: CT abdomen pelvis dated 01/16/2022 FINDINGS: The right kidney measures 9.2 x 5.4 x 4.8 cm. The left kidney measures 9.4 x 5.0 x 5.5 cm. The kidney s demonstrate normal echogenicity. 1.8 cm anechoic cyst at the interpolar region of the left kidney w ith almost imperceptible single thin linear internal septation. There is no hydronephrosis in either kidney. No stones identified. The bladder is decompressed around a Smith catheter which limits evalu ation. IMPRESSION: 1. Likely benign Bosniak II left renal cyst. No hydronephrosis. Reviewed, dictated and finalized at location A.
--- NOTE | ~2022-05-15 | XR_ITS ---
EXAMINATION: XR chest 2V Exam Date/Time: 05/25/2022 14:25 CDT HISTORY: Follow up left pleural effusion Comparison: 05/23/2022. RESULT: Lines, tubes, and devices: Left chest pacer/defibrillator with intact lead. Lungs and pleura: Somewhat improved streaky bilateral perihilar opacities. Persistent bibasilar opac ities. Unchanged moderate left effusion. Cardiomediastinal silhouette: Stable. Other: No acute osseous or upper abdominal finding. IMPRESSION: Improving pulmonary edema. Stable bibasilar atelectasis/consolidation. Stable left pleural effusion. Reviewed, dictated and finalized at location K. IMPRESSION: Improving pulmonary edema. Stable bibasilar atelectasis/consolidation. Stable l eft pleural effusion.
--- NOTE | ~2022-05-15 | XR_ITS ---
EXAMINATION: XR chest 1V portable DATE: 05/15/2022 18:46 INDICATION: Shortness of breath. TECHNIQUE: A single frontal view of the chest was obtained. COMPARISON: Chest single view 08/11/2019, CT abdomen and pelvis 01/16/2022 FINDINGS: There are small pleural effusions. There is mild atelectasis at the lung bases. No pneumoth orax. Cardiomegaly is noted. There is a left chest pacer/defibrillator with lead in right ventricle. There is a healing fracture of proximal left humerus. IMPRESSION: 1. Small pleural effusions. 2. Mild atelectasis at the lung bases. 3. Cardiomegaly. Reviewed, dictated and finalized at location A.
--- NOTE | ~2022-05-15 | CT_ITS ---
EXAMINATION: CT brain wo con DATE: 05/23/2022 07:45 INDICATION: Seizure TECHNIQUE: Computed tomography (CT) of the head was performed without intravenous contrast. The mA wa s adjusted according to patient size. Iterative reconstruction technique was employed. Exam dose: 83 2.33 mGy-cm total exam DLP. COMPARISON: 01/20/2022 CT brain FINDINGS: Chronic bilateral cerebrovascular accidents, including particularly left temporal region, a s well as right frontal and temporal areas.. There is central and cortical cerebral and cerebellar at rophy. No parenchymal, intraventricular, subarachnoid or subdural hematoma. No midline shift or mass effect. No intracranial mass lesion is evident. Prominent bilateral vertebral and carotid siphon internal carotid artery calcifications are noted. Th ere is diminished attenuation cerebral white matter, likely due to chronic small vessel ischemic jaramillo ges. No fracture or bone destruction of the cranial vault. The mastoid air cells and included paranasal si nuses are unremarkable. IMPRESSION: Chronic bilateral infarcts Central and cortical cerebral and cerebellar atrophy No acute intracranial finding Reviewed, dictated and finalized at Location A. Reviewed, dictated and finalized at location A.
--- NOTE | ~2022-05-15 | XR_ITS ---
EXAMINATION: XR chest 2V DATE: 05/23/2022 07:51 INDICATION: Shortness of breath TECHNIQUE: AP and lateral views of the chest were obtained. COMPARISON: Chest radiograph dated 05/15/2022 FINDINGS: Lung volumes with continued to decrease in airspace opacities throughout the right lung and in the le ft mid to lower lung zone. No pneumothorax. Blunting of the posterior sulcus on one side on the later al projection, likely the left consistent with small to moderate-sized pleural effusion. The previous enlarged cardiac silhouette is now obscured. Single lead pacemaker/AICD seen with tip projecting ove r the expected location of the right ventricle. IMPRESSION: 1. Small to moderate-sized left pleural effusion. 2. Small lung volumes with scattered opacities in the right lung and in the left mid to lower lung zo ne which could represent atelectasis or pneumonia. 3.. The previously enlarged cardiac silhouette is obscured. Reviewed, dictated and finalized at location A. IMPRESSION: 1. Small to moderate-sized left pleural effusion. 2. Small lung volumes with scattered opacities in the right lung and in the lef t mid to lower lung zone which could represent atelectasis or pneumonia. 3.. The previously enlarged cardiac silhouette is obscured.
[2022-05-15 18:06] VITALS: BP 94/68; PULSE 78; RESP 20; TEMP 37.1; O2SAT 99
--- NOTE | 2022-05-15 18:31 | ECG_ITS ---
Measurements Intervals [place] Rate: 78 P: DE: 0 QRS: 104 QRSD: 113 T: -60 QT: 421 QTc: 480 Interpretive Statements ATRIAL FIBRILLATION LOW QRS VOLTAGE- DIFFUSE LEADS ANTEROSEPTAL INFARCT, AGE INDETERMINATE HIGH LATERAL INFARCT, AGE INDETERMINATE BORDERLINE ST-T WAVE ABNORMALITY- INF/LAT LEADS BASELINE WANDER- AVF, V5 ABNORMAL ECG Electronically Signed On 05-15-2022 21:15:56 CDT by Weston Vásquez D.O.
--- NOTE | 2022-05-15 18:37 | ED.GENADULT ---
HPI - General Adult General Chief complaint: Unspecified Stated complaint: looks puffy Time Seen by Provider: 05/15/22 18:24 History of Present Illness HPI narrative: 77-year-old female with a history of CHF CVA and diabetes presents the emergency room via EMS from a long-term care facility because family said she was looking puffy . Patient is a poor historian due to history of CVA, so history was obtained via EMS from outside nurse. Patient denies any pain, denies shortness of breath or chest pain. Related Data Home Medications Medication Instructions Recorded Confirmed atorvastatin 40 mg tablet 40 mg PO DAILY 12/30/20 03/11/22 gabapentin 300 mg tablet 300 mg PO BID 12/30/20 03/11/22 levothyroxine 25 mcg tablet 25 mcg PO DAILY 12/30/20 03/11/22 metoprolol succinate 50 mg 25 mg PO DAILY 12/30/20 03/11/22 tablet,extended release 24 hr mexiletine 150 mg capsule 300 mg PO Q8H 12/30/20 03/11/22 sacubitril 24 mg-valsartan 26 mg 1 tablet PO BID 12/30/20 03/11/22 tablet (Entresto) spironolactone 25 mg tablet 12.5 mg PO DAILY 12/30/20 03/11/22 apixaban 5 mg tablet (Eliquis) 5 mg PO BID 01/15/22 03/11/22 omeprazole 20 mg capsule,delayed 20 mg PO DAILY 01/15/22 03/11/22 release bisacodyl 10 mg rectal suppository 10 mg RECTAL DAILY PRN 03/11/22 (Dulcolax (bisacodyl)) bisacodyl 5 mg tablet,delayed 5 mg PO BID 03/11/22 release (Dulcolax (bisacodyl)) citalopram 10 mg tablet (Celexa) 10 mg PO DAILY 03/11/22 doxycycline hyclate 100 mg tablet 100 mg PO DAILY 03/11/22 lactulose 10 gram/15 mL oral 20 g PO DAILY 03/11/22 solution (Enulose) ondansetron 4 mg disintegrating 4 mg PO Q8H 03/11/22 tablet sodium phosphates [Fleet Enema RECTAL 03/11/22 Extra] Allergies Allergy/AdvReac Type Severity Reaction Status Date / Time diphenhydramine Allergy Intermediate PSYCHOSIS Verified 03/11/22 09:01 promethazine AdvReac Mild upset Verified 03/11/22 09:01 stomach Review of Systems Review of Systems: CONSTITUTIONAL: Denies fever, chills, or sweats. EYES: Denies visual changes, redness, or discharge. ENT: Denies rhinorrhea, congestion, sore throat, or otalgia. CARDIOVASCULAR: Denies chest pain, palpitations, or edema. RESPIRATORY: Denies cough or dyspnea. GASTROINTESTINAL: Denies abdominal pain, nausea, vomiting, or diarrhea. GENITOURINARY: Denies dysuria or hematuria. SKIN: Reports edema to lower extremities and abdomen MUSCULOSKELETAL: Denies back pain, joint pain, or myalgia. NEUROLOGIC: Denies headache, numbness, dizziness, or weakness. PSYCHIATRIC: Denies anxiety or depression. [facility] Past Medical History Medical History Chronic constipation Congestive heart failure Diabetes mellitus Hyperlipidemia Hypotension Pacemaker Surgical History Surgical History AICD (automatic cardioverter/defibrillator) present Social History Social History Smoking status: Never smoker Second hand tobacco smoke exposure: No Alcohol intake: never Substance use: never Gender identity (if verbalized by the patient): Female Spiritual care concerns: No Exam Narrative: GENERAL: Well-appearing, well-nourished, no physical limitations, and in no acute distress. HEAD: Normocephalic, atraumatic. EYES: Conjunctivae normal, PERRLA and EOMI. NECK: Supple. No adenopathy or masses. CHEST: Clear to auscultation. No respiratory distress. No wheezes rales or rhonchi. No tenderness. HEART: Regular rate and rhythm. No murmur heard. Normal peripheral pulses. ABDOMEN: Soft, nontender, obese, normal active bowel sounds. EXTREMITIES: Normal range of motion. +1 pitting edema bilateral ankles, nonpitting edema to left upper extremity SKIN: Warm, dry, no rash. No noted wounds NEURO: No focal deficits. Alert and oriented x 1. MAEW. CN's II-XI intact bilaterally PSYC
[2022-05-15 19:16] LABS: Basophils Percent Auto 0.8 % (0.2-1.2); Eosinophils Absolute Auto 0.1 K/mm3 (0-0.3); Eosinophils Percent Auto 3.7 % (0-4.4); Hemoglobin 11.3 g/dL (12.0-15.0); Immature Granulocyte Absolute 0.01 K/mm3 (0.00-0.031); Immature Granulocyte Percent A 0.3 % (0-0.5); Mean Corpuscular HGB Conc 29.7 g/dl (32-36); Mean Corpuscular Hemoglobin 26.7 pg (26-34); Mean Corpuscular Volume 89.8 fl (80-100); Monocytes Absolute Auto 0.5 K/mm3 (0.1-0.6); Monocytes Percent Auto 13.1 % (2.6-8.5); Neutrophils Absolute Auto 2.2 K/mm3 (1.3-6.7); Neutrophils Percent Auto 58.1 % (45.5-73.1); Platelet Count Result 157 k/mm3 (150-375); Red Blood Count 4.23 M/mm3 (4.2-5.4); Red Cell Distribution Width 17.8 % (11.5-14.5); White Blood Count 3.8 K/mm3 (4.5-10.0)
[2022-05-15 19:32] LABS: Alanine Aminotransferase 9 U/L (6-35); Albumin Level 3.5 g/dL (3.5-5.1); Alkaline Phosphatase 121 U/L (38-126); Anion Gap 9 mmol/L (8-16); Aspartate Amino Transferase 21 U/L (14-36); Bilirubin,Total 1.7 mg/dL (0.2-1.3); Blood Urea Nitrogen 34 mg/dL (7-17); Calcium 8.3 mg/dL (8.4-10.2); Carbon Dioxide 28 mmol/L (22-30); Chloride 101 mmol/L (98-107); Estimated CRCL calculation 21 ml/min; Estimated Glomerular Filt Rate 23; Glucose 167 mg/dL (65-110); Potassium 4.9 mmol/L (3.4-5.0); Sodium 138 mmol/L (137-145)
[2022-05-15 19:39] LABS: NT Pro B Type Natriuretic Pept 8120 pg/mL (5-100)
[2022-05-15 19:47] LABS: Anisocytosis 1+ (NORMAL); Platelet Estimate Adequate (Adequate)
[2022-05-15 19:48] LABS: Acanthocytes 1+ (NORMAL)
[2022-05-15 19:57] VITALS: BP 98/74; PULSE 78; RESP 18; O2SAT 99
[2022-05-15 20:37] LABS: SARS-CoV-2 RNA PCR Negative
--- NOTE | 2022-05-15 20:56 | PM.IMHP ---
H&P: HPI History of Present Illness Date/Time: 05/15/22 20:50 Chief Complaint: Looks Puffy according to family Narrative: This 77 year old female patient with significant PMH of CHF, A-fib, Cardiomyopathy s/p AICD placement, CVA, DM, HLD, and Hypotension who presents to the ER today from her [facility] where she resides after her family identified her as looking more puffy than usual. The pt. herself is a poor historian, making sense only at times, however, she is alert and oriented x2 for me and she does acknowledge that she is at the hospital due to having more edema than usual. She denies any CP, dyspnea, N/V/D and no urinary complaints. To her knowledge she has received all medications that she is supposed to and has not increased the salt in her diet. In the ER, workup was performed and is significant for an elevation of her Creatinine and BUN at 2.10/34, where her baseline reviewed is usually a creatinine of 1.0-1.4. Her BNP was also 8120, where her baseline is 2K-5K even in exacerbation. Her Bilirubin is also elevated at 1.7, but is reduced as compared to previous levels. This pt's Most recent cardiovascular studies were reviewed in EMR and are as follows: Echocardiogram for January 19, 2022 showed a mildly enlarged left ventricular chamber was severely reduced left ventricular systolic function of 20-25%. There is mild pulmonary hypertension with 37 mmHg. There is moderate mitral valve regurgitation and severe tricuspid regurgitation. Most recent cardiology note states that she is reasonably compensated with Entresto, spironolactone and metoprolol. With regard to her atrial fibrillation the patient was offered a large procedure, however was not interested. She is rate controlled on mexiletine, and metoprolol and takes Eliquis for anticoagulation. REVIEW OF CARDIO NOTE ALSO HAS INSTRUCTIONS TO NOT HOLD ANY BLOOD PRESSURE MEDICATIONS UNLESS THE SBP<80. At the time of this patient's admission, her home meds have not yet been verified. Appreciate the next Hospitalists assistance in re-ordering her home medications once verified. Review of Systems Review of Systems: All systems reviewed & are unremarkable except as noted in HPI and below PMFSH Past Medical History Medical History (Updated 05/15/22 @ 21:37 by Eileen Marcial APN-Pool) Chronic constipation Congestive heart failure Diabetes mellitus Hyperlipidemia Hypotension Pacemaker Surgical History Surgical History AICD (automatic cardioverter/defibrillator) present Social History Social History Smoking status: Never smoker Second hand tobacco smoke exposure: No Alcohol intake: never Substance use: never Gender identity (if verbalized by the patient): Female Spiritual care concerns: No Meds Home Medications and Allergies Home Medications Medication Instructions Recorded Confirmed Type atorvastatin 40 mg tablet 40 mg PO DAILY 12/30/20 03/11/22 History gabapentin 300 mg tablet 300 mg PO BID 12/30/20 03/11/22 History levothyroxine 25 mcg tablet 25 mcg PO DAILY 12/30/20 03/11/22 History metoprolol succinate 50 mg 25 mg PO DAILY 12/30/20 03/11/22 History tablet,extended release 24 hr mexiletine 150 mg capsule 300 mg PO Q8H 12/30/20 03/11/22 History sacubitril 24 mg-valsartan 26 mg 1 tablet PO BID 12/30/20 03/11/22 History tablet (Entresto) spironolactone 25 mg tablet 12.5 mg PO DAILY 12/30/20 03/11/22 History apixaban 5 mg tablet (Eliquis) 5 mg PO BID 01/15/22 03/11/22 History omeprazole 20 mg capsule,delayed 20 mg PO DAILY 01/15/22 03/11/22 History release acetaminophen 325 mg tablet (Mapap 650 mg PO Q4H PRN Mild Pain (1-3) 01/29/22 03/11/22 Rx (acetaminophen)) Or Fever #30 tabs aluminum-mag hydroxide-simethicone 30 ml PO QID PRN Dyspepsia 30 days 01/29/22 03/11/22 Rx 200 mg-200 mg-20 mg/5 mL oral susp (Mag-[place]u
[2022-05-15 22:02] VITALS: BMI 30.1
--- NOTE | 2022-05-15 22:09 | ADMGEN ---
This patient, Pricila Edward, was admitted to [facility] Surg Room 305-01. Patient/family oriented to hospital policies and general routines including ID bracelet, bed and alarms, visiting hours, pain management, procedures, bathroom and other care routines, personal items, smoking policy, room service/diet, and visiting hours. Information on how to activate the Rapid Response Team has been discussed. Patient/Family are encouraged to report perceived risks to care and to ask questions if they do not understand what they are told or what they should do.
[2022-05-15 22:13] LABS: Hemoglobin A1C 7.9 % (<5.7)
[2022-05-15 22:15] LABS: Glucose Point of Care 166 mg/dl (65-105)
[2022-05-15 22:24] VITALS: BP 98/61; PULSE 71; RESP 16; TEMP 36.6; O2SAT 98
[2022-05-15 23:11] LABS: Appearance Urine Clear (Clear); Bilirubin Urine 1+ (Negative); Blood Urine Negative (Negative); Color Urine Yellow (Yellow); Glucose Urine UA Negative (Negative); Ketones Urine Trace mg/dL (Negative); Leukocyte Esterase Ur Trace LEU/UL (Negative); Nitrate Urine Negative (Negative); Protein Urine 1+ mg/dL (Negative); Specific Grav Ur 1.025 (1.001-1.035)
[2022-05-15 23:22] LABS: Bacteria Urine Trace /hpf; Hyaline Casts Urine 50+ /lpf; Mucus Urine Rare /lpf; Squamous Epithelial Cell Urine Occasional /hpf (Few)
[2022-05-15 23:25] LABS: Add Urine Microscopic? YES
[2022-05-16] VITALS (7 sets, daily range): BP systolic 89–100; BP diastolic 62–65; PULSE 74–89; RESP 16–18; TEMP 35.6–36.5; O2SAT 91–98
[2022-05-16 06:23] LABS: Basophils Percent Auto 1.2 % (0.2-1.2); Eosinophils Absolute Auto 0.2 K/mm3 (0-0.3); Eosinophils Percent Auto 5.2 % (0-4.4); Hematocrit 33.5 % (37.0-47.0); Hemoglobin 10.4 g/dL (12.0-15.0); Lymphocytes Absolute Auto 0.88 K/mm3 (0.9-3.2); Mean Corpuscular Hemoglobin 27.2 pg (26-34); Mean Corpuscular Volume 87.5 fl (80-100); Mean Platelet Volume 11.2 fl (7.4-10.4); Monocytes Absolute Auto 0.5 K/mm3 (0.1-0.6); Monocytes Percent Auto 15.3 % (2.6-8.5); Neutrophils Absolute Auto 1.7 K/mm3 (1.3-6.7); Neutrophils Percent Auto 51.3 % (45.5-73.1); Platelet Count Result 142 k/mm3 (150-375); Red Blood Count 3.83 M/mm3 (4.2-5.4); Red Cell Distribution Width 17.7 % (11.5-14.5); White Blood Count 3.3 K/mm3 (4.5-10.0)
[2022-05-16 06:33] LABS: Alanine Aminotransferase 6 U/L (6-35); Albumin Level 2.8 g/dL (3.5-5.1); Alkaline Phosphatase 94 U/L (38-126); Anion Gap 5 mmol/L (8-16); Aspartate Amino Transferase 16 U/L (14-36); Bilirubin,Total 1.5 mg/dL (0.2-1.3); Blood Urea Nitrogen 33 mg/dL (7-17); Calcium 7.9 mg/dL (8.4-10.2); Carbon Dioxide 29 mmol/L (22-30); Chloride 104 mmol/L (98-107); Estimated CRCL calculation 21 ml/min; Estimated Glomerular Filt Rate 23; Glucose 132 mg/dL (65-110); Magnesium 2.2 mg/dL (1.6-2.3); Potassium 4.6 mmol/L (3.4-5.0); Sodium 138 mmol/L (137-145)
[2022-05-16 07:46] LABS: Glucose Point of Care 122 mg/dl (65-105)
[2022-05-16] MEDS: APIXABAN 5 MG TABLET PO ×2 (08:53→21:40)
[2022-05-16] MEDS: FUROSEMIDE INJ 40 MG/4 ML VIAL IV PUSH ×2 (08:53→16:43)
--- NOTE | 2022-05-16 09:33 | PM.IMPN ---
Progress Note: A&P Assessment and Plan (1) Acute exacerbation of CHF (congestive heart failure): Code(s): I50.9 - Heart failure, unspecified Status: Acute Assessment and Plan: - Cardiomyopathy with AICD in place. - Echocardiogram for January 19, 2022 showed a mildly enlarged left ventricular chamber was severely reduced left ventricular systolic function of 20-25%. There is mild pulmonary hypertension with 37 mmHg. There is moderate mitral valve regurgitation and severe tricuspid regurgitation. - Daily weight 05/16 169lbs - I&O: 860/300 - BNP noted to be elevated at 8120. - Monitor Daily labs and VS. - Consult Cardiology for assistance with Diuresis, appreciate their co-management who advised to continue Lasix 40mg BID. advised we may need to back off Entresto or spironolactone if renal functions decline. - Do not hold BP meds or diuretics unless SBP < 80 according to previous Cardiology note. - TSH ordered. - Leon catheter to gravity - Fall precautions (2) BOO (acute kidney injury): Code(s): N17.9 - Acute kidney failure, unspecified Status: Acute Assessment and Plan: - Daily labs, trend renal function. - Baseline creatinine is 1.0-1.4. - 2.10/34 on admission and upon AM repeat. - High threshold for giving fluids in setting of current appearance of hypervolemia and will be receiving Lasix. - Consider Nephrology consult if acute worsening or rise in renal function, additional plan as above. - Monitor I&O. (3) Chronic a-fib: Code(s): I48.20 - Chronic atrial fibrillation, unspecified Status: Chronic Assessment and Plan: - Will need Eliquis continued when home meds are verified by nursing staff. - EKG shows Atrial Fibrillation 78 bpm (4) Diabetes mellitus: Code(s): E11.9 - Type 2 diabetes mellitus without complications Status: Chronic Assessment and Plan: - SSI - Hypoglycemia protocol - Check A1C - Glucose checks AC and HS. - Add Lantus as needed after the home medications have been verified. (5) Hyperlipidemia: Code(s): E78.5 - Hyperlipidemia, unspecified Status: Chronic Assessment and Plan: - Plan to continue home statin dose once verified. Subjective Date/time seen: 05/16/22 09:33 Patient examined in bed today. She was resting comfortably. She denied chest pain, shortness of breath. Decreased appetite or difficulty with bowel movements. She has a leon catheter in and wanted to know when we could remove it. Review of Systems Review of Systems: All systems reviewed & are unremarkable except as noted in HPI and below Exam Narrative: GENERAL APPEARANCE: Alert and oriented x 3, in no apparent distress. HEENT: PERRL, EOMI. Sclerae anicteric. Moist mucous membranes. NECK: Supple. No JVD or obvious carotid bruits. RESPIRATORY: Respirations are nonlabored. Breath sounds are equal and clear bilaterally. No wheezes, Rhonchi, or rales. CARDIOVASCULAR: Regular rate and rhythm with normal S1-S2. No murmurs, gallops, or rubs. GASTROINTESTINAL: Soft, flat, and benign. No mass, tenderness, guarding, or rebound. No organomegaly or hernia. Bowel sounds are present. SKIN: Visible AICD under the skin under the left clavical. Warm, dry, well perfused. Good turgor. No lesions, nodules, or rashes noted. EXTREMITIES: No cyanosis, clubbing, or edema. Radial and pedal pulses intact. NEUROLOGICAL: Alert. Cranial nerves 2-12 are grossly intact. No gross focal deficits to casual conversation. PSYCHIATRIC: Pleasant and cooperative with normal mood and affect. Objective Data Vital Signs Vital Signs: Vital Signs - 24 hr 05/15/22 18:06 05/15/22 19:57 05/15/22 22:24 Temperature 98.8 F 97.9 F Pulse Rate 78 78 71 Respiratory Rate 20 18 16 Blood Pressure 94/68 L 98/74 L 98/61 L Pulse Oximetry 99 99 98 Oxygen Delivery Room Air 05/15/22 23:15 05/16/22 05:49 05/16/22 08:00 Temperature 97.7 F Pulse Rate 83 R
[2022-05-16] MEDS: LACTULOSE 20 GM/30 ML UDC PO ×3 (10:35→16:43)
[2022-05-16] MEDS: MEXILETINE HCL 150 MG CAPSULE 300 MG PO ×3 (10:35→21:40)
[2022-05-16] MEDS: METOPROLOL SUCCINATE EXT REL 25 MG TABCR PO ×2 (10:35→21:40)
[2022-05-16] MEDS: CITALOPRAM HYDROBROMIDE 20 MG TABLET PO (10:36)
[2022-05-16] MEDS: SPIRONOLACTONE 25 MG TABLET PO (10:36)
[2022-05-16] MEDS: SACUBITRIL/VALSARTAN 24-26 MG TABLET 1 TAB PO ×2 (10:36→21:40)
[2022-05-16] MEDS: LEVOTHYROXINE SODIUM 25 MCG TABLET PO (10:36)
[2022-05-16] MEDS: ATORVASTATIN 40 MG TABLET PO (10:36)
--- NOTE | 2022-05-16 10:59 | PM.CNCAR ---
Assessment and Plan Assessment and plan (1) Acute exacerbation of CHF (congestive heart failure): Qualifiers: Heart failure type: combined systolic and diastolic Qualified Code(s): I50.43 - Acute on chronic combined systolic (congestive) and diastolic (congestive) heart failure Code(s): I50.9 - Heart failure, unspecified Status: Acute Assessment and Plan: Continue home cardiovascular medical therapy and supportive for cardiomyopathy as BP and renal function permit. I suspect additional elevation in her BNP is related to acute renal insufficiency in addition to CHF and severe LV dysfunction. We may need to back off on Entresto or Spironolactone if renal function continues to decline. Monitor closely. Cont IV diuresis LAsix 40mg IV q12h for now. Accurate input/output, daily weights. Check TSH. HR controlled in AF. Further recommendations to follow based on patient's response to therapy. (2) Cardiomyopathy: Qualifiers: Cardiomyopathy type: unspecified Qualified Code(s): I42.9 - Cardiomyopathy, unspecified Code(s): I42.9 - Cardiomyopathy, unspecified Status: Chronic Assessment and Plan: Severe LV systolic dysfunction EF 20-25% by echocardiogram December 2021. She has a history of moderate MR and severe TR with mild pulmonary hypertension. (3) BOO (acute kidney injury): Code(s): N17.9 - Acute kidney failure, unspecified Status: Acute Assessment and Plan: Acute renal insufficiency possibly related to low cardiac output. If renal function continues to deteriorate and or poor diuretic response may need to consider inotrope support. May also need to reduce Entresto and or spironolactone. Continue to monitor closely. (4) Chronic a-fib: Code(s): I48.20 - Chronic atrial fibrillation, unspecified Status: Chronic Assessment and Plan: Stable on mexiletine, Toprol XL. Discussed with pharmacy no dose reduction indicated with mexiletine at this time. Continue Eliquis 5 mg twice daily. Monitor for bleeding. H&H stable. (5) AICD (automatic cardioverter/defibrillator) present: Code(s): Z95.810 - Presence of automatic (implantable) cardiac defibrillator Status: Acute Assessment and Plan: Stable no acute issues. (6) Confusion: Code(s): R41.0 - Disorientation, unspecified Status: Acute Assessment and Plan: Chronic, continue lactulose. Defer to primary service. Check TSH. If worsening mental status check ammonia level. UA mildly abnormal. (7) Diabetes mellitus: Code(s): E11.9 - Type 2 diabetes mellitus without complications Status: Chronic Assessment and Plan: Management per primary service. History of Present Illness History of Present Illness Consult date/time: Date of service: 05/16/22 10:59 Cardiology consultation at the request of Eileen Simpson APN for our opinion regarding CHF. Requesting physician: Eileen Marcial APN-C Consult reason: congestive heart failure Reason For Visit: chf exacerbation Narrative: Patient is a 77-year-old female with a complicated past medical history including history of severe nonischemic cardiomyopathy, longstanding persistent atrial fibrillation, status post ICD, history of stroke, diabetes mellitus chronic heart failure with reduced ejection fraction was a resident of an extended care facility presented to the emergency department due to worsening edema. Patient is somewhat confused although admits to worsening swelling she denies shortness of breath, chest pain, palpitations, fevers, chills. She states she feels okay otherwise. She denies recent changes in medications or diet. Who presentation she was noted be in acute renal insufficiency creatinine 2.1 elevated BNP of greater than 8000. Patient last seen by Cardiology late December or early January of this year. She is followed by [facility]. She has been maintained on Entr
[2022-05-16 12:05] LABS: Glucose Point of Care 147 mg/dl (65-105)
[2022-05-16 16:27] LABS: Glucose Point of Care 220 mg/dl (65-105)
[2022-05-16] MEDS: INSULIN ASPART (*BKC) 100 UNITS/ML SUB-Q (16:43)
[2022-05-16 17:44] LABS: Free T4 Free Thyroxine Reflex 1.49 ng/dL (0.78-2.19)
[2022-05-16 18:43] LABS: Total Triiodothyronine (T3) 0.74 NG/ML (0.97-1.69)
[2022-05-16] MEDS: GABAPENTIN 300 MG CAPSULE PO (21:40)
[2022-05-16] MEDS: PANTOPRAZOLE 40 MG TABLET PO (21:40)
[2022-05-16 22:38] LABS: Glucose Point of Care 193 mg/dl (65-105)
[2022-05-17 06:00] VITALS: BP 106/60; PULSE 81; RESP 18; TEMP 36.2; O2SAT 100
[2022-05-17 06:20] VITALS: PULSE 78
[2022-05-17] MEDS: LEVOTHYROXINE SODIUM 25 MCG TABLET PO (06:20)
[2022-05-17] MEDS: MEXILETINE HCL 150 MG CAPSULE 300 MG PO ×3 (06:20→23:16)
[2022-05-17 07:54] LABS: Glucose Point of Care 140 mg/dl (65-105)
[2022-05-17 07:57] LABS: Basophils Percent Auto 0.4 % (0.2-1.2); Eosinophils Absolute Auto 0.1 K/mm3 (0-0.3); Eosinophils Percent Auto 2.1 % (0-4.4); Hematocrit 37.6 % (37.0-47.0); Hemoglobin 11.5 g/dL (12.0-15.0); Immature Granulocyte Absolute 0.02 K/mm3 (0.00-0.031); Immature Granulocyte Percent A 0.4 % (0-0.5); Lymphocytes Absolute Auto 0.84 K/mm3 (0.9-3.2); Lymphocytes Percent Auto 17.4 % (18.3-44.2); Mean Corpuscular HGB Conc 30.6 g/dl (32-36); Mean Corpuscular Volume 88.3 fl (80-100); Mean Platelet Volume 11.1 fl (7.4-10.4); Monocytes Absolute Auto 0.7 K/mm3 (0.1-0.6); Monocytes Percent Auto 13.7 % (2.6-8.5); Neutrophils Absolute Auto 3.2 K/mm3 (1.3-6.7); Platelet Count Result 143 k/mm3 (150-375); Red Blood Count 4.26 M/mm3 (4.2-5.4); Red Cell Distribution Width 17.7 % (11.5-14.5); White Blood Count 4.8 K/mm3 (4.5-10.0)
[2022-05-17 08:09] LABS: Alanine Aminotransferase 6 U/L (6-35); Alkaline Phosphatase 104 U/L (38-126); Anion Gap 10 mmol/L (8-16); Aspartate Amino Transferase 16 U/L (14-36); Bilirubin,Total 1.7 mg/dL (0.2-1.3); Blood Urea Nitrogen 31 mg/dL (7-17); Calcium 8.6 mg/dL (8.4-10.2); Carbon Dioxide 27 mmol/L (22-30); Chloride 101 mmol/L (98-107); Estimated CRCL calculation 27 ml/min; Estimated Glomerular Filt Rate 29; Glucose 132 mg/dL (65-110); Potassium 4.4 mmol/L (3.4-5.0); Sodium 138 mmol/L (137-145)
[2022-05-17 08:54] VITALS: PULSE 76
[2022-05-17] MEDS: ATORVASTATIN 40 MG TABLET PO (08:54)
[2022-05-17] MEDS: SACUBITRIL/VALSARTAN 24-26 MG TABLET 1 TAB PO ×2 (08:54→20:35)
[2022-05-17] MEDS: FUROSEMIDE INJ 40 MG/4 ML VIAL IV PUSH ×2 (08:54→16:22)
[2022-05-17] MEDS: METOPROLOL SUCCINATE EXT REL 25 MG TABCR PO ×2 (08:54→20:35)
[2022-05-17] MEDS: LACTULOSE 20 GM/30 ML UDC PO ×3 (08:54→16:22)
[2022-05-17] MEDS: CITALOPRAM HYDROBROMIDE 20 MG TABLET PO (08:54)
[2022-05-17] MEDS: SPIRONOLACTONE 25 MG TABLET PO (08:55)
[2022-05-17] MEDS: APIXABAN 5 MG TABLET PO ×2 (08:55→20:35)
[2022-05-17 12:00] LABS: Glucose Point of Care 163 mg/dl (65-105)
--- NOTE | 2022-05-17 12:55 | PM.PNCARD ---
Progress Note: A&P Assessment and Plan (1) Acute exacerbation of CHF (congestive heart failure): Qualifiers: Heart failure type: combined systolic and diastolic Qualified Code(s): I50.43 - Acute on chronic combined systolic (congestive) and diastolic (congestive) heart failure Code(s): I50.9 - Heart failure, unspecified Status: Acute Assessment and Plan: Continue home cardiovascular medical therapy and supportive for cardiomyopathy as BP and renal function permit. I suspect additional elevation in her BNP is related to acute renal insufficiency in addition to CHF and severe LV dysfunction. Edema stable, slightly improved on examination today. Renal function stable and in fact improving. Accurate input and output documentation questionable. Cont IV diuresis Lasix 40mg IV q12h for now. Accurate input/output, daily weights. Mild elevation inTSH. HR controlled in AF. Continue current management this time. Delicate balance, prognosis rather poor. Further workup per hospitalist service with altered mental status as appropriate. (2) Cardiomyopathy: Qualifiers: Cardiomyopathy type: unspecified Qualified Code(s): I42.9 - Cardiomyopathy, unspecified Code(s): I42.9 - Cardiomyopathy, unspecified Status: Chronic Assessment and Plan: Severe LV systolic dysfunction EF 20-25% by echocardiogram December 2021. She has a history of moderate MR and severe TR with mild pulmonary hypertension. (3) BOO (acute kidney injury): Code(s): N17.9 - Acute kidney failure, unspecified Status: Acute Assessment and Plan: Acute renal insufficiency possibly related to low cardiac output. If renal function continues to deteriorate and or poor diuretic response may need to consider inotrope support. May also need to reduce Entresto and or spironolactone. Continue to monitor closely. (4) Chronic a-fib: Code(s): I48.20 - Chronic atrial fibrillation, unspecified Status: Chronic Assessment and Plan: Stable on mexiletine, Toprol XL. Discussed with pharmacy no dose reduction indicated with mexiletine at this time. Continue Eliquis 5 mg twice daily. Monitor for bleeding. H&H stable. (5) AICD (automatic cardioverter/defibrillator) present: Code(s): Z95.810 - Presence of automatic (implantable) cardiac defibrillator Status: Acute Assessment and Plan: Stable no acute issues. (6) Confusion: Code(s): R41.0 - Disorientation, unspecified Status: Acute Assessment and Plan: Chronic, continue lactulose. Defer to primary service. Check TSH. If worsening mental status check ammonia level. UA mildly abnormal. (7) Diabetes mellitus: Code(s): E11.9 - Type 2 diabetes mellitus without complications Status: Chronic Assessment and Plan: Management per primary service. Subjective Date/time seen: Date of service: 05/17/22 12:55 Follow-up for history of CHF, cardiomyopathy, atrial fibrillation, ICD Patient quite lethargic, arousable but falls right back asleep this morning. She was able to mumble she felt okay denies shortness of breath. No new issues overnight reported. Review of Systems Review of Systems: Unable to obtain additional review of systems given patient's mental status, lethargy. Obtained through nursing report, review of electronic medical record. All systems reviewed & are unremarkable except as noted in HPI and below Constitutional: Constitutional: Reports as per HPI and Reports no additional constitutional complaints Eyes: Eyes: Reports as per HPI and Reports no additional eye complaints ENT: Reports system reviewed and no additional complaints, except as documented and Reports as per HPI Cardiovascular: Cardiovascular: Reports as per HPI and Reports no additional cardiovascular complaints Respiratory: Respiratory: Reports as per HPI and Reports no additional respiratory complaints Gastrointestinal: G
[2022-05-17 13:14] VITALS: PULSE 72
[2022-05-17 14:00] VITALS: BP 95/58; PULSE 81; RESP 16; TEMP 35.9; O2SAT 93
--- NOTE | 2022-05-17 14:21 | PM.IMPN ---
Progress Note: A&P Assessment and Plan (1) Acute exacerbation of CHF (congestive heart failure): Qualifiers: Heart failure type: combined systolic and diastolic Qualified Code(s): I50.43 - Acute on chronic combined systolic (congestive) and diastolic (congestive) heart failure Code(s): I50.9 - Heart failure, unspecified Status: Acute Assessment and Plan: - Cardiomyopathy with AICD in place. - Echocardiogram for January 19, 2022 showed a mildly enlarged left ventricular chamber was severely reduced left ventricular systolic function of 20-25%. There is mild pulmonary hypertension with 37 mmHg. There is moderate mitral valve regurgitation and severe tricuspid regurgitation.?BNP noted to be elevated at 8120. - Daily weight I question accuracy of daily weight as well as I/Os. - Accurate I/O & daily weights. Smith catheter to gravity to aid with accurate I&Os.? - Cardiology is on the case, advised to continue Lasix IV 40mg BID at this time. - TSH mildly elevated, normal T4. - Fall precautions (2) BOO (acute kidney injury): Code(s): N17.9 - Acute kidney failure, unspecified Status: Acute Assessment and Plan: - Daily labs, trend renal function. - Baseline creatinine is 1.0-1.4. - 2.10/34 on admission - 1.7 today- improvement in renal functions. Continue current course of treatment. - High threshold for giving fluids in setting of current appearance of hypervolemia and will be receiving Lasix. - Consider Nephrology consult if acute worsening or rise in renal function, additional plan as above. - Monitor I&O. (3) Chronic a-fib: Code(s): I48.20 - Chronic atrial fibrillation, unspecified Status: Chronic Assessment and Plan: - Will need Eliquis continued when home meds are verified by nursing staff. - EKG shows Atrial Fibrillation 78 bpm (4) Diabetes mellitus: Code(s): E11.9 - Type 2 diabetes mellitus without complications Status: Chronic Assessment and Plan: - SSI - Hypoglycemia protocol - Check A1C - Glucose checks AC and HS. - Add Lantus as needed after the home medications have been verified. (5) Hyperlipidemia: Code(s): E78.5 - Hyperlipidemia, unspecified Status: Chronic Assessment and Plan: - Plan to continue home statin dose once verified. Subjective Date/time seen: 05/17/22 14:21 Patient sleeping when I entered the room, however, after talking with her she woke up and became more alert. She said she felt hungry today and needed to have a bowel movement. She was aware that she was in the hospital, but could not tell me for sure what hospital. She denies chest pain, shortness of breath, pain in her legs. She has some abdominal pain from needing to ust ehe bathroom. Review of Systems Review of Systems: All systems reviewed & are unremarkable except as noted in HPI and below Exam Narrative: GENERAL APPEARANCE: Alert and oriented x 3, in no apparent distress. HEENT: PERRL, EOMI. Sclerae anicteric. Moist mucous membranes. NECK: Supple. No JVD or obvious carotid bruits. RESPIRATORY: Respirations are nonlabored. Breath sounds are equal and clear bilaterally. No wheezes, Rhonchi, or rales. CARDIOVASCULAR: Regular rate and rhythm with normal S1-S2. No murmurs, gallops, or rubs. GASTROINTESTINAL: Soft, flat, and benign. No mass, tenderness, guarding, or rebound. No organomegaly or hernia. Bowel sounds are present. SKIN: Visible AICD under the skin under the left clavical. Warm, dry, well perfused. Good turgor. No lesions, nodules, or rashes noted. EXTREMITIES: No cyanosis, clubbing, or edema. Radial and pedal pulses intact. NEUROLOGICAL: Alert. Cranial nerves 2-12 are grossly intact. No gross focal deficits to casual conversation. No focal abnormal findings. Strength equal bilaterally. PSYCHIATRIC: Pleasant and cooperative with normal mood and affect. Objective Data Vital Signs Vital Signs:
[2022-05-17 16:06] LABS: Glucose Point of Care 140 mg/dl (65-105)
[2022-05-17] MEDS: GABAPENTIN 300 MG CAPSULE PO (20:35)
[2022-05-17] MEDS: PANTOPRAZOLE 40 MG TABLET PO (20:36)
[2022-05-17 22:00] VITALS: BP 105/59; PULSE 89; RESP 20; TEMP 36.1; O2SAT 95
[2022-05-17 22:18] LABS: Glucose Point of Care 173 mg/dl (65-105)
[2022-05-18] MEDS: MEXILETINE HCL 150 MG CAPSULE 300 MG PO ×3 (05:41→22:58)
[2022-05-18] MEDS: LEVOTHYROXINE SODIUM 25 MCG TABLET PO (05:41)
[2022-05-18 06:00] VITALS: BP 110/55; PULSE 83; RESP 16; TEMP 36.4; O2SAT 97
[2022-05-18 07:22] LABS: Hematocrit 35.5 % (37.0-47.0); Hemoglobin 10.8 g/dL (12.0-15.0); Mean Corpuscular HGB Conc 30.4 g/dl (32-36); Mean Corpuscular Hemoglobin 26.9 pg (26-34); Mean Corpuscular Volume 88.3 fl (80-100); Mean Platelet Volume 11.2 fl (7.4-10.4); Platelet Count Result 152 k/mm3 (150-375); Red Blood Count 4.02 M/mm3 (4.2-5.4); Red Cell Distribution Width 17.5 % (11.5-14.5); White Blood Count 4.2 K/mm3 (4.5-10.0)
[2022-05-18 07:40] LABS: Alanine Aminotransferase 6 U/L (6-35); Alkaline Phosphatase 101 U/L (38-126); Anion Gap 9 mmol/L (8-16); Aspartate Amino Transferase 17 U/L (14-36); Bilirubin,Total 1.7 mg/dL (0.2-1.3); Blood Urea Nitrogen 27 mg/dL (7-17); Calcium 8.6 mg/dL (8.4-10.2); Carbon Dioxide 33 mmol/L (22-30); Chloride 98 mmol/L (98-107); Estimated CRCL calculation 30 ml/min; Estimated Glomerular Filt Rate 34; Glucose 132 mg/dL (65-110); Sodium 140 mmol/L (137-145)
[2022-05-18 07:44] LABS: Glucose Point of Care 134 mg/dl (65-105)
[2022-05-18 08:38] VITALS: PULSE 76
[2022-05-18] MEDS: LACTULOSE 20 GM/30 ML UDC PO ×3 (08:38→16:42)
[2022-05-18] MEDS: APIXABAN 5 MG TABLET PO ×2 (08:38→20:05)
[2022-05-18] MEDS: METOPROLOL SUCCINATE EXT REL 25 MG TABCR PO ×2 (08:38→20:05)
[2022-05-18] MEDS: FUROSEMIDE INJ 40 MG/4 ML VIAL IV PUSH ×2 (08:38→16:42)
[2022-05-18] MEDS: CITALOPRAM HYDROBROMIDE 20 MG TABLET PO (08:38)
[2022-05-18] MEDS: SACUBITRIL/VALSARTAN 24-26 MG TABLET 1 TAB PO (08:38)
[2022-05-18] MEDS: ATORVASTATIN 40 MG TABLET PO (08:38)
[2022-05-18] MEDS: SPIRONOLACTONE 25 MG TABLET PO (08:38)
[2022-05-18 09:05] VITALS: O2SAT 93
--- NOTE | 2022-05-18 10:19 | PM.PNCARD ---
Progress Note: A&P Assessment and Plan (1) Acute exacerbation of CHF (congestive heart failure): Qualifiers: Heart failure type: combined systolic and diastolic Qualified Code(s): I50.43 - Acute on chronic combined systolic (congestive) and diastolic (congestive) heart failure Code(s): I50.9 - Heart failure, unspecified Status: Acute Assessment and Plan: Continue home cardiovascular medical therapy and supportive for cardiomyopathy as BP and renal function permit. I suspect additional elevation in her BNP is related to acute renal insufficiency in addition to CHF and severe LV dysfunction. Edema stable, slightly improved on examination today. Renal function stable and in fact improving. Accurate input and output documentation questionable. Cont IV diuresis Lasix 40mg IV q12h for now. Continue current management without change today. She is still diuresing. Renal function continues to improve with diuresis. (2) Cardiomyopathy: Qualifiers: Cardiomyopathy type: unspecified Qualified Code(s): I42.9 - Cardiomyopathy, unspecified Code(s): I42.9 - Cardiomyopathy, unspecified Status: Chronic Assessment and Plan: Severe LV systolic dysfunction EF 20-25% by echocardiogram December 2021. She has a history of moderate MR and severe TR with mild pulmonary hypertension. (3) BOO (acute kidney injury): Code(s): N17.9 - Acute kidney failure, unspecified Status: Acute Assessment and Plan: Acute renal insufficiency possibly related to low cardiac output. If renal function continues to deteriorate and or poor diuretic response may need to consider inotrope support. May also need to reduce Entresto and or spironolactone. Continue to monitor closely. (4) Chronic a-fib: Code(s): I48.20 - Chronic atrial fibrillation, unspecified Status: Chronic Assessment and Plan: Stable on mexiletine, Toprol XL. Discussed with pharmacy no dose reduction indicated with mexiletine at this time. Continue Eliquis 5 mg twice daily. Monitor for bleeding. H&H stable. (5) AICD (automatic cardioverter/defibrillator) present: Code(s): Z95.810 - Presence of automatic (implantable) cardiac defibrillator Status: Acute Assessment and Plan: Stable no acute issues. (6) Confusion: Code(s): R41.0 - Disorientation, unspecified Status: Acute Assessment and Plan: Chronic, continue lactulose. Defer to primary service. Check TSH. If worsening mental status check ammonia level. UA mildly abnormal. (7) Diabetes mellitus: Code(s): E11.9 - Type 2 diabetes mellitus without complications Status: Chronic Assessment and Plan: Management per primary service. Subjective Date/time seen: 05/18/22 10:19 Interval history: 77-year-old with valvular heart disease, cardiomyopathy, CHF Date of service 05/18/2022: Drowsy but arousable. No complaints of chest pain or shortness of breath. Review of Systems Review of Systems: All systems reviewed & are unremarkable except as noted in HPI and below Constitutional: Constitutional: Denies body ache(s) ENT: Reports Normal hearing present Cardiovascular: Cardiovascular: Denies chest pain Respiratory: Respiratory: Denies cough Gastrointestinal: Gastrointestinal: Denies abdominal pain Genitourinary: Genitourinary: Denies hematuria Exam Narrative: General: Elderly female alert and oriented times x1, quite sleepy this morning arousable, otherwise Well developed, No apparent distress, comfortable, pleasant, and cooperative. She is constantly fidgeting. Head: atraumatic, normocephalic Eyes: EOM intact, sclerae anicteric, conjunctivae unremarkable Ears/Nose: external inspection of ears and nose were grossly normal Mouth/Throat: oral mucosa pink and moist Neck: supple, normal range of motion, no jugular venous distention or carotid bruits, thyroid nonpalpable
--- NOTE | 2022-05-18 11:26 | PM.IMPN ---
Progress Note: A&P Assessment and Plan (1) Acute exacerbation of CHF (congestive heart failure): Qualifiers: Heart failure type: combined systolic and diastolic Qualified Code(s): I50.43 - Acute on chronic combined systolic (congestive) and diastolic (congestive) heart failure <Prachi Cisneros PA-C - Last Filed: 05/18/22 11:33> Code(s): I50.9 - Heart failure, unspecified <Prachi Cisneros PA-C - Last Filed: 05/18/22 11:33> Status: Acute <Prachi Cisneros PA-C - Last Filed: 05/18/22 11:33> Assessment and Plan: - Cardiomyopathy with AICD in place. - Echocardiogram for January 19, 2022 showed a mildly enlarged left ventricular chamber was severely reduced left ventricular systolic function of 20-25%. There is mild pulmonary hypertension with 37 mmHg. There is moderate mitral valve regurgitation and severe tricuspid regurgitation.?BNP noted to be elevated at 8120. - I question accuracy of daily weight as well as I/Os. - Accurate I/O & daily weights. Smith catheter with accurate I&Os.? - Cardiology is on the case, advised to continue Lasix IV 40mg BID at this time, as patient's renal function is actually improving with diuresis. - TSH mildly elevated, normal T4. - Fall precautions <Prachi Cisneros PA-C - Last Filed: 05/18/22 11:33> (2) BOO (acute kidney injury): Code(s): N17.9 - Acute kidney failure, unspecified <Prachi Cisneros PA-C - Last Filed: 05/18/22 11:33> Status: Acute <Prachi Cisneros PA-C - Last Filed: 05/18/22 11:33> Assessment and Plan: - Daily labs, trend renal function. - Baseline creatinine is 1.0-1.4. - 2.10 on admission - 1.03/20 today- improvement in renal functions. Continue current course of treatment. - High threshold for giving fluids in setting of current appearance of hypervolemia and will be receiving Lasix - Monitor I&O. <Prachi Cisneros PA-C - Last Filed: 05/18/22 11:33> (3) Chronic a-fib: Code(s): I48.20 - Chronic atrial fibrillation, unspecified <Prachi Roberson JIHAN Cisneros - Last Filed: 05/18/22 11:33> Status: Chronic <Prachi WilkersonJIHAN ross - Last Filed: 05/18/22 11:33> Assessment and Plan: - Continue home Eliquis. - EKG shows Atrial Fibrillation 78 bpm <Prachi Roberson JIHAN Cisneros - Last Filed: 05/18/22 11:33> (4) Diabetes mellitus: Code(s): E11.9 - Type 2 diabetes mellitus without complications <Prachi Roberson JIHAN Cisneros - Last Filed: 05/18/22 11:33> Status: Chronic <Prachi WilkersonJIHAN ross - Last Filed: 05/18/22 11:33> Assessment and Plan: - SSI - Hypoglycemia protocol - Check A1C - Glucose checks AC and HS. - Add Lantus as needed after the home medications have been verified. <Prachi Roberson JIHAN Cisneros - Last Filed: 05/18/22 11:33> (5) Hyperlipidemia: Code(s): E78.5 - Hyperlipidemia, unspecified <Prachi WilkersonJIHAN ross - Last Filed: 05/18/22 11:33> Status: Chronic <Prachi WilkersonJIHAN ross - Last Filed: 05/18/22 11:33> Assessment and Plan: - Continue home statin. <Prachijonathan Cisneros PA-C - Last Filed: 05/18/22 11:33> Additional Plan I, Martina Crane MD, have not seen or examined this patient. The OUTDOOR EDUCATION TEACHER/PA/midlevel has seen and examined this patient independently. The OUTDOOR EDUCATION TEACHER/PA/midlevel has independently formulated and executed the plan of care for this patient. <Martina Crane MD - Last Filed: 05/21/22 16:56> Subjective Date/time seen: 05/18/22 11:26 Patient examined at the bedside today. She is feeling well. She denies chest pain, shortness a breath. She states she has a good appetite breakfast. Patient will stay an additional day for diureses as managed by cardiology. <Prachi Cisneros PA-C - Last Filed: 05/18/22 11:33> Review of Systems Review of Systems: All systems reviewed & are unremarkable except as noted in HPI and below <Prachi Cisneros PA-C - Last Filed: 05/18/22 11:33> Exam Narrative: GENERAL APPEARANCE: A
[2022-05-18 11:43] LABS: Glucose Point of Care 165 mg/dl (65-105)
[2022-05-18 14:00] VITALS: BP 98/51; PULSE 82; RESP 16; TEMP 36.1; O2SAT 97
[2022-05-18 14:07] VITALS: PULSE 80
[2022-05-18 16:39] LABS: Glucose Point of Care 198 mg/dl (65-105)
[2022-05-18] MEDS: GABAPENTIN 300 MG CAPSULE PO (20:05)
[2022-05-18] MEDS: PANTOPRAZOLE 40 MG TABLET PO (20:05)
[2022-05-18 22:00] VITALS: BP 101/69; PULSE 78; RESP 18; TEMP 35.8; O2SAT 99
[2022-05-19] VITALS (9 sets, daily range): BP systolic 81–101; BP diastolic 56–76; PULSE 69–88; RESP 18–20; TEMP 36–36.3; O2SAT 93–99
[2022-05-19] MEDS: MEXILETINE HCL 150 MG CAPSULE 300 MG PO ×3 (05:57→23:14)
[2022-05-19] MEDS: LEVOTHYROXINE SODIUM 25 MCG TABLET PO (05:57)
[2022-05-19 06:19] LABS: Hematocrit 37.2 % (37.0-47.0); Hemoglobin 11.6 g/dL (12.0-15.0); Mean Corpuscular HGB Conc 31.2 g/dl (32-36); Mean Corpuscular Hemoglobin 26.9 pg (26-34); Mean Corpuscular Volume 86.3 fl (80-100); Mean Platelet Volume 10.9 fl (7.4-10.4); Platelet Count Result 145 k/mm3 (150-375); Red Blood Count 4.31 M/mm3 (4.2-5.4); Red Cell Distribution Width 17.5 % (11.5-14.5); White Blood Count 4.7 K/mm3 (4.5-10.0)
[2022-05-19 06:33] LABS: Alanine Aminotransferase 7 U/L (6-35); Albumin Level 3.1 g/dL (3.5-5.1); Alkaline Phosphatase 103 U/L (38-126); Anion Gap 8 mmol/L (8-16); Aspartate Amino Transferase 16 U/L (14-36); Bilirubin,Total 1.9 mg/dL (0.2-1.3); Blood Urea Nitrogen 25 mg/dL (7-17); Calcium 8.6 mg/dL (8.4-10.2); Carbon Dioxide 32 mmol/L (22-30); Chloride 99 mmol/L (98-107); Estimated CRCL calculation 29 ml/min; Estimated Glomerular Filt Rate 34; Glucose 149 mg/dL (65-110); Potassium 4.2 mmol/L (3.4-5.0); Sodium 139 mmol/L (137-145)
[2022-05-19] MEDS: CITALOPRAM HYDROBROMIDE 20 MG TABLET PO (09:20)
[2022-05-19] MEDS: METOPROLOL SUCCINATE EXT REL 25 MG TABCR PO ×2 (09:20→20:55)
[2022-05-19] MEDS: APIXABAN 5 MG TABLET PO ×2 (09:20→20:55)
[2022-05-19] MEDS: ATORVASTATIN 40 MG TABLET PO (09:20)
[2022-05-19] MEDS: LACTULOSE 20 GM/30 ML UDC PO ×3 (09:21→17:52)
[2022-05-19] MEDS: SPIRONOLACTONE 25 MG TABLET PO (09:21)
[2022-05-19] MEDS: SACUBITRIL/VALSARTAN 24-26 MG TABLET 1 TAB PO (09:21)
[2022-05-19] MEDS: FUROSEMIDE INJ 40 MG/4 ML VIAL IV PUSH (09:21)
--- NOTE | 2022-05-19 10:43 | PM.PNCARD ---
Progress Note: A&P Assessment and Plan (1) Acute exacerbation of CHF (congestive heart failure): Qualifiers: Heart failure type: combined systolic and diastolic Qualified Code(s): I50.43 - Acute on chronic combined systolic (congestive) and diastolic (congestive) heart failure Code(s): I50.9 - Heart failure, unspecified Status: Acute Assessment and Plan: Patient with CHF with severely reduced ejection fraction with history of ? nonischemic cardiomyopathy. - continue IV furosemide for now. Monitor electrolytes and renal function, Is/Os. - Continue metoprolol succinate, sacubitril / valsartan, and spironolactone. (2) Cardiomyopathy: Qualifiers: Cardiomyopathy type: unspecified Qualified Code(s): I42.9 - Cardiomyopathy, unspecified Code(s): I42.9 - Cardiomyopathy, unspecified Status: Chronic Assessment and Plan: Severe LV systolic dysfunction EF 20-25% by echocardiogram December 2021. She has a history of moderate MR and severe TR with mild pulmonary hypertension. Medical management as described above. (3) BOO (acute kidney injury): Code(s): N17.9 - Acute kidney failure, unspecified Status: Acute Assessment and Plan: Acute renal insufficiency possibly related to low cardiac output. If renal function deteriorates and or poor diuretic response may need to consider inotropic support. May also need to reduce Entresto and or spironolactone. Continue to monitor closely. (4) Chronic a-fib: Code(s): I48.20 - Chronic atrial fibrillation, unspecified Status: Chronic Assessment and Plan: Continue metoprolol succinate and apixaban. Monitor for bleeding. H&H stable. (5) AICD (automatic cardioverter/defibrillator) present: Code(s): Z95.810 - Presence of automatic (implantable) cardiac defibrillator Status: Acute Assessment and Plan: Stable no acute issues. (6) Confusion: Code(s): R41.0 - Disorientation, unspecified Status: Acute Assessment and Plan: Management per primary team (7) Diabetes mellitus: Code(s): E11.9 - Type 2 diabetes mellitus without complications Status: Chronic Assessment and Plan: Management per primary service. Time Spent With Patient Time with patient: 15 - 25 minutes Subjective Date/time seen: 05/19/22 10:43 Interval history: Date of service 05/19/2022-Patient was sitting up in the bed at the time of evaluation. She appeared somnolent, but without any acute distress. She denied resting shortness of breath or chest pain. As per staff, she has been somnolent today. Exam Narrative: PHYSICAL EXAMINATION: GENERAL: ill-appearing female, Somnolent, no acute distress MENTAL STATUS: affect appropriate to mood EYES: Extraocular movements intact EARS: External ears appear normal, hearing grossly normal NOSE: Normal and patent, no discharge MOUTH: Mucous membranes moist, tongue normal NECK: Supple, JVD CHEST: decreased respiratory effort HEART: Normal rate, distant heart sounds ABDOMEN: Soft, nontender NEUROLOGICAL: somnolent MUSCULOSKELETAL: No major deformity, no amputation EXTREMITIES: bilateral pedal edema SKIN: no rash on the exposed area, no cyanosis PSYCHIATRIC: somnolent Objective Data Vital Signs Vital Signs: Vital Signs - 24 hr 05/18/22 14:07 05/18/22 14:00 05/18/22 16:02 Temperature 36.1 C L Pulse Rate 80 82 Respiratory Rate 16 Blood Pressure 98/51 L Pulse Oximetry 97 Oxygen Delivery Room Air 05/18/22 20:00 05/18/22 22:00 05/19/22 06:00 Temperature 35.8 C L 36.1 C L Pulse Rate 78 86 Respiratory Rate 18 18 Blood Pressure 101/69 92/71 L Pulse Oximetry 99 97 Oxygen Delivery Room Air 05/19/22 09:15 05/19/22 09:20 Temperature Pulse Rate 88 88 Respiratory Rate Blood Pressure 95/66 L Pulse Oximetry 98 Oxygen Delivery Intake/Output Intake/Output: Intake
[2022-05-19 11:32] LABS: Glucose Point of Care 171 mg/dl (65-105)
--- NOTE | 2022-05-19 12:32 | PM.IMPN ---
Progress Note: A&P Assessment and Plan (1) Acute exacerbation of CHF (congestive heart failure): Qualifiers: Heart failure type: combined systolic and diastolic Qualified Code(s): I50.43 - Acute on chronic combined systolic (congestive) and diastolic (congestive) heart failure <Prachi Cisneros PA-C - Last Filed: 05/19/22 12:37> Code(s): I50.9 - Heart failure, unspecified <Prachi Cisneros PA-C - Last Filed: 05/19/22 12:37> Status: Acute <Prachi Cisneros PA-C - Last Filed: 05/19/22 12:37> Assessment and Plan: - Cardiomyopathy and HFrEF with AICD in place. - Echocardiogram for January 19, 2022 showed a mildly enlarged left ventricular chamber was severely reduced left ventricular systolic function of 20-25%. There is mild pulmonary hypertension with 37 mmHg. There is moderate mitral valve regurgitation and severe tricuspid regurgitation.?BNP noted to be elevated at 8120. - I question accuracy of daily weight as well as I/Os. - Accurate I/O & daily weights. Smith catheter with accurate I&Os.? - Cardiology is on the case, advise continued diuresis with Lasix IV 40mg BID at this time, as patient's renal function is actually improving with diuresis. - TSH mildly elevated, normal T4. - Fall precautions <Prachi Cisneros PA-C - Last Filed: 05/19/22 12:37> (2) BOO (acute kidney injury): Code(s): N17.9 - Acute kidney failure, unspecified <Prachi Cisneros PA-C - Last Filed: 05/19/22 12:37> Status: Acute <Prachi Cisneros PA-C - Last Filed: 05/19/22 12:37> Assessment and Plan: - Daily labs, trend renal function. - Baseline creatinine is 1.0-1.4. - 2.10/34 on admission - 1.03/20 today- improvement in renal functions. Continue current course of treatment. - High threshold for giving fluids in setting of current appearance of hypervolemia and will be receiving Lasix - Monitor I&O. <Prachi Cisneros PA-C - Last Filed: 05/19/22 12:37> (3) Chronic a-fib: Code(s): I48.20 - Chronic atrial fibrillation, unspecified <Prachi Cisneros PA-C - Last Filed: 05/19/22 12:37> Status: Chronic <Prachi Cisneros PA-C - Last Filed: 05/19/22 12:37> Assessment and Plan: - Continue home Eliquis. - EKG shows Atrial Fibrillation 78 bpm <Prachi Cisneros PA-C - Last Filed: 05/19/22 12:37> (4) Diabetes mellitus: Code(s): E11.9 - Type 2 diabetes mellitus without complications <Prachi Cisneros PA-C - Last Filed: 05/19/22 12:37> Status: Chronic <Prachi Cisneros PA-C - Last Filed: 05/19/22 12:37> Assessment and Plan: - SSI - Hypoglycemia protocol - Check A1C - Glucose checks AC and HS. - Add Lantus as needed after the home medications have been verified. <Prachi Cisneros PA-C - Last Filed: 05/19/22 12:37> (5) Hyperlipidemia: Code(s): E78.5 - Hyperlipidemia, unspecified <Prachi Cisneros PA-C - Last Filed: 05/19/22 12:37> Status: Chronic <Prachi Cisneros PA-C - Last Filed: 05/19/22 12:37> Assessment and Plan: - Continue home statin. <Prachi Cisneros PA-C - Last Filed: 05/19/22 12:37> Subjective Date/time seen: 05/19/22 12:32 Pricila was eating her breakfast today when I visited her. She said she was feeling a little tired today. Denied chest pain, shortness of breath, leg pain, fevers, or chills. She said she still doesn't have too much of an appetite. <Prachi Cisneros PA-C - Last Filed: 05/19/22 12:37> Review of Systems Review of Systems: All systems reviewed & are unremarkable except as noted in HPI and below <Prachi Cisneros PA-C - Last Filed: 05/19/22 12:37> Exam Narrative: GENERAL APPEARANCE: Alert and oriented x 3, in no apparent distress. HEENT: PERRL, EOMI. Sclerae anicteric. Moist mucous membranes. NECK: Supple. No JVD or obvious carotid bruits. RESPIRATORY: Respirations are nonlabored. Breath sounds are equal and clear bilaterally. Crackles in right up
[2022-05-19 16:47] LABS: Glucose Point of Care 171 mg/dl (65-105)
[2022-05-19] MEDS: GABAPENTIN 300 MG CAPSULE PO (20:55)
[2022-05-19] MEDS: PANTOPRAZOLE 40 MG TABLET PO (20:55)
[2022-05-20] VITALS (11 sets, daily range): BP systolic 74–105; BP diastolic 46–71; PULSE 78–94; RESP 16–18; TEMP 35.9–36.7; O2SAT 92–97
[2022-05-20 06:02] LABS: Glucose Point of Care 147 mg/dl (65-105)
[2022-05-20] MEDS: LEVOTHYROXINE SODIUM 25 MCG TABLET PO (06:04)
[2022-05-20] MEDS: MEXILETINE HCL 150 MG CAPSULE 300 MG PO ×2 (06:04→20:40)
[2022-05-20 06:05] LABS: Hematocrit 38.3 % (37.0-47.0); Hemoglobin 11.9 g/dL (12.0-15.0); Mean Corpuscular HGB Conc 31.1 g/dl (32-36); Mean Corpuscular Hemoglobin 27.1 pg (26-34); Mean Corpuscular Volume 87.2 fl (80-100); Mean Platelet Volume 11.4 fl (7.4-10.4); Platelet Count Result 152 k/mm3 (150-375); Red Blood Count 4.39 M/mm3 (4.2-5.4); Red Cell Distribution Width 17.7 % (11.5-14.5); White Blood Count 4.9 K/mm3 (4.5-10.0)
[2022-05-20 06:12] LABS: Alanine Aminotransferase 8 U/L (6-35); Albumin Level 3.1 g/dL (3.5-5.1); Alkaline Phosphatase 101 U/L (38-126); Anion Gap 13 mmol/L (8-16); Aspartate Amino Transferase 15 U/L (14-36); Bilirubin,Total 2.3 mg/dL (0.2-1.3); Blood Urea Nitrogen 27 mg/dL (7-17); Calcium 8.5 mg/dL (8.4-10.2); Carbon Dioxide 27 mmol/L (22-30); Chloride 99 mmol/L (98-107); Estimated CRCL calculation 31 ml/min; Estimated Glomerular Filt Rate 37; Glucose 146 mg/dL (65-110); Potassium 4.2 mmol/L (3.4-5.0); Sodium 139 mmol/L (137-145)
[2022-05-20 08:03] LABS: Glucose Point of Care 146 mg/dl (65-105)
--- NOTE | 2022-05-20 09:08 | PM.PNCARD ---
Progress Note: A&P Assessment and Plan (1) Acute exacerbation of CHF (congestive heart failure): Qualifiers: Heart failure type: combined systolic and diastolic Qualified Code(s): I50.43 - Acute on chronic combined systolic (congestive) and diastolic (congestive) heart failure Code(s): I50.9 - Heart failure, unspecified Status: Acute Assessment and Plan: Patient with CHF with severely reduced ejection fraction with history of ? nonischemic cardiomyopathy. -will lower her IV furosemide to 20 mg IV q.12 Monitor electrolytes and renal function, Is/Os. - Continue metoprolol succinate, sacubitril / valsartan, and spironolactone. (2) Cardiomyopathy: Qualifiers: Cardiomyopathy type: unspecified Qualified Code(s): I42.9 - Cardiomyopathy, unspecified Code(s): I42.9 - Cardiomyopathy, unspecified Status: Chronic Assessment and Plan: Severe LV systolic dysfunction EF 20-25% by echocardiogram December 2021. She has a history of moderate MR and severe TR with mild pulmonary hypertension. Medical management as described above. (3) BOO (acute kidney injury): Code(s): N17.9 - Acute kidney failure, unspecified Status: Acute Assessment and Plan: Acute renal insufficiency possibly related to low cardiac output. If renal function deteriorates and or poor diuretic response may need to consider inotropic support. May also need to reduce Entresto and or spironolactone. Continue to monitor closely. (4) Chronic a-fib: Code(s): I48.20 - Chronic atrial fibrillation, unspecified Status: Chronic Assessment and Plan: Continue metoprolol succinate and apixaban. Monitor for bleeding. H&H stable. (5) AICD (automatic cardioverter/defibrillator) present: Code(s): Z95.810 - Presence of automatic (implantable) cardiac defibrillator Status: Acute Assessment and Plan: Stable no acute issues. (6) Confusion: Code(s): R41.0 - Disorientation, unspecified Status: Acute Assessment and Plan: Management per primary team (7) Diabetes mellitus: Code(s): E11.9 - Type 2 diabetes mellitus without complications Status: Chronic Assessment and Plan: Management per primary service. Subjective Date/time seen: 05/20/22 09:08 Interval history: 77-year-old admitted with CHF Date of service 05 20 2022-Patient was sitting up in the bed at the time of evaluation. She appeared somnolent but arousable. Denies any chest pain or shortness of breath. Review of Systems Review of Systems: All systems reviewed & are unremarkable except as noted in HPI and below Constitutional: Constitutional: Reports as per HPI, Reports no additional constitutional complaints and Denies body ache(s) Eyes: Eyes: Reports as per HPI and Reports no additional eye complaints ENT: Reports system reviewed and no additional complaints, except as documented, Reports as per HPI and Reports Normal hearing present Cardiovascular: Cardiovascular: Reports as per HPI, Reports no additional cardiovascular complaints and Denies chest pain Respiratory: Respiratory: Reports as per HPI, Reports no additional respiratory complaints and Denies cough Gastrointestinal: Gastrointestinal: Reports as per HPI, Reports no additional gastrointestinal complaints and Denies abdominal pain Genitourinary: Genitourinary: Reports as per HPI and Denies hematuria Musculoskeletal: Musculoskeletal: Reports no additional musculoskeletal complaints and Reports as per HPI Integumentary/Breasts: Skin/Breast: Reports system reviewed and no additional complaints, except as docu and Reports as per HPI Neurologic: Reports system reviewed and no additional complaints, except as documented, Reports as per HPI and Reports Normal hearing present Psychiatric: Psychiatric: Reports no additional psychiatric complaints and Reports as per HPI Endocrine: Endocrine: Reports no addit
--- NOTE | 2022-05-20 09:42 | PM.IMPN ---
Progress Note: A&P Assessment and Plan (1) Acute exacerbation of CHF (congestive heart failure): Qualifiers: Heart failure type: combined systolic and diastolic Qualified Code(s): I50.43 - Acute on chronic combined systolic (congestive) and diastolic (congestive) heart failure Code(s): I50.9 - Heart failure, unspecified Status: Acute Assessment and Plan: - Cardiomyopathy and HFrEF with AICD in place. - Echocardiogram for January 19, 2022 showed a mildly enlarged left ventricular chamber was severely reduced left ventricular systolic function of 20-25%. There is mild pulmonary hypertension with 37 mmHg. There is moderate mitral valve regurgitation and severe tricuspid regurgitation.?BNP noted to be elevated at 8120. - I question accuracy of daily weight as well as I/Os. - Accurate I/O & daily weights. Smith catheter with accurate I&Os.? - Cardiology is on the case, advise continued diuresis with Lasix IV 20mg BID at this time. - TSH mildly elevated, normal T4. - Fall precautions (2) BOO (acute kidney injury): Code(s): N17.9 - Acute kidney failure, unspecified Status: Acute Assessment and Plan: - Daily labs, trend renal function. - Baseline creatinine is 1.0-1.4. - 2.10/34 on admission - 1.02/18 today- improvement in renal functions. Continue current course of treatment. - High threshold for giving fluids in setting of current appearance of hypervolemia and will be receiving Lasix - Monitor I&O. (3) Chronic a-fib: Code(s): I48.20 - Chronic atrial fibrillation, unspecified Status: Chronic Assessment and Plan: - Continue home Eliquis. - EKG shows Atrial Fibrillation 78 bpm (4) Diabetes mellitus: Code(s): E11.9 - Type 2 diabetes mellitus without complications Status: Chronic Assessment and Plan: - SSI - Hypoglycemia protocol - A1C 7.9 - Glucose checks AC and HS. (5) Hyperlipidemia: Code(s): E78.5 - Hyperlipidemia, unspecified Status: Chronic Assessment and Plan: - Continue home statin. Subjective Date/time seen: 05/20/22 09:42 Interval history: 77 year old female patient with significant PMH of CHF, A-fib, Cardiomyopathy s/p AICD placement, CVA, DM, HLD, and Hypotension, admitted for CHF. Pt is alert to person only. She is somnolent but arousable. She denies cp/sob. Further hx limited secondary to mental status. Therapy was attempting to work with her at the time of my eval but she was very sleepy. Review of Systems Review of Systems: ROS unobtainable: Yes unobtainable due to mental status Exam Narrative: GENERAL APPEARANCE: Alert and oriented x 1, in no apparent distress. HEENT: PERRL, EOMI. Sclerae anicteric. Moist mucous membranes. NECK: Supple. RESPIRATORY: Respirations are nonlabored. Lungs CTA bilaterally. CARDIOVASCULAR: Regular rate and rhythm with normal S1-S2. No murmurs, gallops, or rubs. GASTROINTESTINAL: Soft, flat, and benign. No mass, tenderness, guarding, or rebound. Bowel sounds are present. : Urinary catheter in place draining yellow urine. SKIN: Visible AICD under the skin under the left clavicle. Warm, dry, well perfused. Good turgor. No lesions, nodules, or rashes noted. EXTREMITIES: No cyanosis, clubbing, or edema. Radial and pedal pulses intact. NEUROLOGICAL: Alert. Cranial nerves 2-12 are grossly intact. No gross focal deficits to casual conversation. No focal abnormal findings. Strength equal bilaterally. PSYCHIATRIC: Confused. Objective Data Vital Signs Vital Signs: Vital Signs - 24 hr 05/19/22 10:55 05/19/22 12:00 05/19/22 13:41 Temperature Pulse Rate 86 Respiratory Rate Blood Pressure 81/64 L 101/76 Pulse Oximetry Oxygen Delivery 05/19/22 14:00 05/19/22 16:46 05/19/22 22:00 Temperature 97.3 F L 96.8 F L Pulse Rate 85 69 Respiratory Rate 20 18 Blood Pressure 88/72 L 89/
[2022-05-20] MEDS: APIXABAN 5 MG TABLET PO ×2 (11:17→20:41)
[2022-05-20] MEDS: ATORVASTATIN 40 MG TABLET PO (11:17)
[2022-05-20] MEDS: SPIRONOLACTONE 25 MG TABLET PO (11:17)
[2022-05-20] MEDS: SACUBITRIL/VALSARTAN 24-26 MG TABLET 1 TAB PO ×2 (11:18→20:41)
[2022-05-20] MEDS: METOPROLOL SUCCINATE EXT REL 25 MG TABCR PO ×2 (11:18→20:41)
[2022-05-20] MEDS: CITALOPRAM HYDROBROMIDE 20 MG TABLET PO (11:18)
[2022-05-20 11:49] LABS: Glucose Point of Care 160 mg/dl (65-105)
[2022-05-20 17:22] LABS: Glucose Point of Care 154 mg/dl (65-105)
[2022-05-20] MEDS: GABAPENTIN 300 MG CAPSULE PO (20:40)
[2022-05-20] MEDS: PANTOPRAZOLE 40 MG TABLET PO (20:41)
[2022-05-20 21:05] LABS: Appearance Urine Clear (Clear); Bilirubin Urine 2+ (Negative); Blood Urine 3+ (Negative); Color Urine Yellow (Yellow); Glucose Urine UA Negative (Negative); Ketones Urine Trace mg/dL (Negative); Leukocyte Esterase Ur 1+ LEU/UL (Negative); Nitrate Urine Negative (Negative); Protein Urine 1+ mg/dL (Negative); Specific Grav Ur >= 1.030 (1.001-1.035); pH Urine 5.5 (5.0-9.0)
[2022-05-20 21:17] LABS: Mucus Urine Rare /lpf; RBC Urine 51-75 /hpf (0-2); Squamous Epithelial Cell Urine Rare /hpf (Few); WBC Urine 21-30 /hpf
[2022-05-20 21:19] LABS: Add Urine Microscopic? YES
[2022-05-20 21:39] LABS: Glucose Point of Care 152 mg/dl (65-105)
[2022-05-21] VITALS (7 sets, daily range): BP systolic 77–102; BP diastolic 43–62; PULSE 75–94; RESP 15–18; TEMP 35.8–36.5; O2SAT 97–100
[2022-05-21] MEDS: LEVOTHYROXINE SODIUM 25 MCG TABLET PO (05:14)
[2022-05-21] MEDS: MEXILETINE HCL 150 MG CAPSULE 300 MG PO ×3 (05:14→20:50)
[2022-05-21 06:16] LABS: Hematocrit 37.7 % (37.0-47.0); Hemoglobin 11.5 g/dL (12.0-15.0); Mean Corpuscular HGB Conc 30.5 g/dl (32-36); Mean Corpuscular Hemoglobin 26.9 pg (26-34); Mean Corpuscular Volume 88.1 fl (80-100); Mean Platelet Volume 11.5 fl (7.4-10.4); Platelet Count Result 144 k/mm3 (150-375); Red Blood Count 4.28 M/mm3 (4.2-5.4); Red Cell Distribution Width 17.8 % (11.5-14.5); White Blood Count 5.8 K/mm3 (4.5-10.0)
[2022-05-21 07:23] LABS: Anion Gap 11 mmol/L (8-16); Blood Urea Nitrogen 31 mg/dL (7-17); Carbon Dioxide 29 mmol/L (22-30); Chloride 100 mmol/L (98-107); Estimated CRCL calculation 30 ml/min; Estimated Glomerular Filt Rate 34; Glucose 131 mg/dL (65-110); Potassium 4.3 mmol/L (3.4-5.0); Sodium 140 mmol/L (137-145)
--- NOTE | 2022-05-21 07:25 | PM.IMPN ---
Progress Note: A&P Assessment and Plan (1) Acute exacerbation of CHF (congestive heart failure): Qualifiers: Heart failure type: combined systolic and diastolic Qualified Code(s): I50.43 - Acute on chronic combined systolic (congestive) and diastolic (congestive) heart failure Code(s): I50.9 - Heart failure, unspecified Status: Acute Assessment and Plan: - Cardiomyopathy and HFrEF with AICD in place. - Echocardiogram for January 19, 2022 showed a mildly enlarged left ventricular chamber was severely reduced left ventricular systolic function of 20-25%. There is mild pulmonary hypertension with 37 mmHg. There is moderate mitral valve regurgitation and severe tricuspid regurgitation.?BNP noted to be elevated at 8120. - I question accuracy of daily weight as well as I/Os. - Accurate I/O & daily weights. Smith catheter with accurate I&Os.? - Cardiology is on the case, advise continued diuresis with Lasix IV 20mg BID at this time. - TSH mildly elevated, normal T4. - Fall precautions (2) BOO (acute kidney injury): Code(s): N17.9 - Acute kidney failure, unspecified Status: Acute Assessment and Plan: - Daily labs, trend renal function. - Baseline creatinine is 1.0-1.4. - 2.10/34 on admission - 1.02/18 today- improvement in renal functions. Continue current course of treatment. - High threshold for giving fluids in setting of current appearance of hypervolemia and will be receiving Lasix - Monitor I&O. (3) Chronic a-fib: Code(s): I48.20 - Chronic atrial fibrillation, unspecified Status: Chronic Assessment and Plan: Rate controlled on metoprolol. Continue metoprolol and apixaban. (4) Diabetes mellitus: Code(s): E11.9 - Type 2 diabetes mellitus without complications Status: Chronic Assessment and Plan: - SSI - Hypoglycemia protocol - A1C 7.9 - Glucose checks AC and HS. (5) Hyperlipidemia: Code(s): E78.5 - Hyperlipidemia, unspecified Status: Chronic Assessment and Plan: - Continue home statin. (6) Hypothyroidism: Code(s): E03.9 - Hypothyroidism, unspecified Status: Acute Assessment and Plan: Continue home levothyroxine. (7) Thrombocytopenia: Code(s): D69.6 - Thrombocytopenia, unspecified Status: Acute Assessment and Plan: Chronic and stable. Etiology unclear. Could be related to PPI use but seems stable. Subjective Date/time seen: 05/21/22 07:25 Patient says she is breathing fine. Exam Narrative: GENERAL: NAD, cooperative HEENT: Normocephalic, atraumatic, anicteric NECK: Supple CV: Normal S1, S2, RRR, No MRG RESP: CTAB, Normal work of breathing. EXTREMITIES: Warm and well perfused, no clubbing, cyanosis, or edema. SKIN: warm, dry and intact. NEURO: CN 2-12 grossly intact. Objective Data Vital Signs Vital Signs: Vital Signs - 24 hr 05/20/22 08:00 05/20/22 08:05 05/20/22 08:55 Temperature Pulse Rate 86 Respiratory Rate Blood Pressure 83/53 L 88/60 L Pulse Oximetry 93 Oxygen Delivery Room Air 05/20/22 11:18 05/20/22 11:24 05/20/22 14:00 Temperature 98.1 F Pulse Rate 87 94 83 Respiratory Rate 16 Blood Pressure 105/71 74/46 L Pulse Oximetry 92 93 Oxygen Delivery 05/20/22 18:16 05/20/22 14:40 05/20/22 20:40 Temperature Pulse Rate 92 78 Respiratory Rate Blood Pressure 77/56 L 80/58 L Pulse Oximetry 93 Oxygen Delivery 05/20/22 20:41 05/20/22 20:00 05/20/22 22:00 Temperature 97.0 F L Pulse Rate 78 89 Respiratory Rate 18 Blood Pressure 102/60 Pulse Oximetry 97 Oxygen Delivery Room Air 05/21/22 05:14 05/21/22 06:00 Temperature 96.5 F L Pulse Rate 82 87 Respiratory Rate 18 Blood Pressure 91/52 L Pulse Oximetry 97 Oxygen Delivery Intake/Output Intake/Output: Intake & Output 05/18/22 05/19/22 05/20/22 05/21/22 23:59 23:59 23:59
[2022-05-21 07:53] LABS: Glucose Point of Care 136 mg/dl (65-105)
[2022-05-21] MEDS: ATORVASTATIN 40 MG TABLET PO (09:36)
[2022-05-21] MEDS: SACUBITRIL/VALSARTAN 24-26 MG TABLET 1 TAB PO ×2 (09:36→20:50)
[2022-05-21] MEDS: FUROSEMIDE INJ 40 MG/4 ML VIAL 20 MG IV PUSH ×2 (09:36→16:04)
[2022-05-21] MEDS: SPIRONOLACTONE 25 MG TABLET PO (09:36)
[2022-05-21] MEDS: LACTULOSE 20 GM/30 ML UDC PO ×2 (09:36→14:50)
[2022-05-21] MEDS: METOPROLOL SUCCINATE EXT REL 25 MG TABCR PO ×2 (09:36→20:49)
[2022-05-21] MEDS: CITALOPRAM HYDROBROMIDE 20 MG TABLET PO (09:36)
[2022-05-21] MEDS: APIXABAN 5 MG TABLET PO ×2 (09:36→20:49)
--- NOTE | 2022-05-21 10:22 | PM.PNCARD ---
Progress Note: A&P Assessment and Plan (1) Acute exacerbation of CHF (congestive heart failure): Qualifiers: Heart failure type: combined systolic and diastolic Qualified Code(s): I50.43 - Acute on chronic combined systolic (congestive) and diastolic (congestive) heart failure Code(s): I50.9 - Heart failure, unspecified Status: Acute Assessment and Plan: Patient with CHF with severely reduced ejection fraction with history of ? nonischemic cardiomyopathy. Continue diuresis with IV furosemide for now. Continue metoprolol succinate, sacubitril / valsartan, and spironolactone. (2) Cardiomyopathy: Qualifiers: Cardiomyopathy type: unspecified Qualified Code(s): I42.9 - Cardiomyopathy, unspecified Code(s): I42.9 - Cardiomyopathy, unspecified Status: Chronic Assessment and Plan: Severe LV systolic dysfunction EF 20-25% by echocardiogram December 2021. She has a history of moderate MR and severe TR with mild pulmonary hypertension. Medical management as described above. (3) BOO (acute kidney injury): Code(s): N17.9 - Acute kidney failure, unspecified Status: Acute Assessment and Plan: Acute renal insufficiency possibly related to low cardiac output. If renal function deteriorates and or poor diuretic response may need to consider inotropic support. May also need to reduce Entresto and or spironolactone. Continue to monitor closely. (4) Chronic a-fib: Code(s): I48.20 - Chronic atrial fibrillation, unspecified Status: Chronic Assessment and Plan: Continue metoprolol succinate and apixaban. Monitor for bleeding. H&H stable. (5) AICD (automatic cardioverter/defibrillator) present: Code(s): Z95.810 - Presence of automatic (implantable) cardiac defibrillator Status: Acute Assessment and Plan: Stable no acute issues. (6) Confusion: Code(s): R41.0 - Disorientation, unspecified Status: Acute Assessment and Plan: Management per primary team (7) Diabetes mellitus: Code(s): E11.9 - Type 2 diabetes mellitus without complications Status: Chronic Assessment and Plan: Management per primary service. Subjective Date/time seen: 05/21/22 10:22 Cardiology follow up for CHF Somnolent today, does not answer my questions. Does not appear to be in any acute distress. Review of Systems Review of Systems: All systems reviewed & are unremarkable except as noted in HPI and below Constitutional: Constitutional: Reports as per HPI, Reports no additional constitutional complaints and Denies body ache(s) Eyes: Eyes: Reports as per HPI and Reports no additional eye complaints ENT: Reports system reviewed and no additional complaints, except as documented, Reports as per HPI and Reports Normal hearing present Cardiovascular: Cardiovascular: Reports as per HPI, Reports no additional cardiovascular complaints and Denies chest pain Respiratory: Respiratory: Reports as per HPI, Reports no additional respiratory complaints and Denies cough Gastrointestinal: Gastrointestinal: Reports as per HPI, Reports no additional gastrointestinal complaints and Denies abdominal pain Genitourinary: Genitourinary: Reports as per HPI and Denies hematuria Musculoskeletal: Musculoskeletal: Reports no additional musculoskeletal complaints and Reports as per HPI Integumentary/Breasts: Skin/Breast: Reports system reviewed and no additional complaints, except as docu and Reports as per HPI Neurologic: Reports system reviewed and no additional complaints, except as documented, Reports as per HPI and Reports Normal hearing present Psychiatric: Psychiatric: Reports no additional psychiatric complaints and Reports as per HPI Endocrine: Endocrine: Reports no additional endocrine complaints and Reports as per HPI Hematologic/Lymphatic: Hematologic/Lymphatic: Reports no additional hematologic/lymphatic complaints
[2022-05-21 11:32] LABS: Glucose Point of Care 178 mg/dl (65-105)
[2022-05-21] MEDS: ONDANSETRON INJ 4 MG/2 ML VIAL IV PUSH (15:58)
[2022-05-21 16:37] LABS: Glucose Point of Care 156 mg/dl (65-105)
[2022-05-21] MEDS: GABAPENTIN 300 MG CAPSULE PO (20:49)
[2022-05-21] MEDS: PANTOPRAZOLE 40 MG TABLET PO (20:49)
[2022-05-22 05:26] VITALS: PULSE 70
[2022-05-22] MEDS: MEXILETINE HCL 150 MG CAPSULE 300 MG PO ×3 (05:26→21:17)
[2022-05-22] MEDS: LEVOTHYROXINE SODIUM 25 MCG TABLET PO (05:27)
[2022-05-22 05:51] VITALS: BP 95/60; PULSE 76; RESP 18; TEMP 35.7; O2SAT 95
[2022-05-22 06:23] LABS: Basophils Percent Auto 0.4 % (0.2-1.2); Eosinophils Absolute Auto 0.1 K/mm3 (0-0.3); Eosinophils Percent Auto 2.1 % (0-4.4); Hematocrit 33.7 % (37.0-47.0); Immature Granulocyte Absolute 0.02 K/mm3 (0.00-0.031); Immature Granulocyte Percent A 0.4 % (0-0.5); Immature Platelet Fraction Pct 6.7 % (0.9-11.2); Lymphocytes Absolute Auto 0.81 K/mm3 (0.9-3.2); Lymphocytes Percent Auto 15.7 % (18.3-44.2); Mean Corpuscular HGB Conc 29.7 g/dl (32-36); Mean Corpuscular Hemoglobin 26.5 pg (26-34); Mean Corpuscular Volume 89.2 fl (80-100); Monocytes Absolute Auto 0.7 K/mm3 (0.1-0.6); Monocytes Percent Auto 12.8 % (2.6-8.5); Neutrophils Absolute Auto 3.5 K/mm3 (1.3-6.7); Neutrophils Percent Auto 68.6 % (45.5-73.1); Platelet Count Result 131 k/mm3 (150-375); Red Blood Count 3.78 M/mm3 (4.2-5.4); Red Cell Distribution Width 17.7 % (11.5-14.5); White Blood Count 5.2 K/mm3 (4.5-10.0)
[2022-05-22 06:39] LABS: Anion Gap 7 mmol/L (8-16); Blood Urea Nitrogen 35 mg/dL (7-17); Calcium 7.6 mg/dL (8.4-10.2); Carbon Dioxide 33 mmol/L (22-30); Chloride 100 mmol/L (98-107); Estimated CRCL calculation 26 ml/min; Estimated Glomerular Filt Rate 29; Glucose 135 mg/dL (65-110); Potassium 4.2 mmol/L (3.4-5.0); Sodium 140 mmol/L (137-145)
--- NOTE | 2022-05-22 07:54 | PM.IMPN ---
Progress Note: A&P Assessment and Plan (1) Acute exacerbation of CHF (congestive heart failure): Qualifiers: Heart failure type: combined systolic and diastolic Qualified Code(s): I50.43 - Acute on chronic combined systolic (congestive) and diastolic (congestive) heart failure Code(s): I50.9 - Heart failure, unspecified Status: Acute Assessment and Plan: - Cardiomyopathy and HFrEF with AICD in place. - Echocardiogram for January 19, 2022 showed a mildly enlarged left ventricular chamber was severely reduced left ventricular systolic function of 20-25%. There is mild pulmonary hypertension with 37 mmHg. There is moderate mitral valve regurgitation and severe tricuspid regurgitation.?BNP noted to be elevated at 8120. I&Os are not accurately recorded. BP soft due to heart failure. -CXR for AM -Furosemide IV held due to creatinine -Continue spironolactone 25 mg po daily -Continue entresto low dose (2) BOO (acute kidney injury): Code(s): N17.9 - Acute kidney failure, unspecified Status: Acute Assessment and Plan: Baseline creatinine is 1.0-1.4 up to 1.7 today. Will hold furosemide IV. (3) Chronic a-fib: Code(s): I48.20 - Chronic atrial fibrillation, unspecified Status: Chronic Assessment and Plan: Rate controlled on mexiletine and metoprolol. Continue home medications. (4) Diabetes mellitus: Code(s): E11.9 - Type 2 diabetes mellitus without complications Status: Chronic Assessment and Plan: - SSI - Hypoglycemia protocol - A1C 7.9 - Glucose checks AC and HS. (5) Hyperlipidemia: Code(s): E78.5 - Hyperlipidemia, unspecified Status: Chronic Assessment and Plan: - Continue home statin. (6) Hypothyroidism: Code(s): E03.9 - Hypothyroidism, unspecified Status: Acute Assessment and Plan: Continue home levothyroxine. (7) Thrombocytopenia: Code(s): D69.6 - Thrombocytopenia, unspecified Status: Acute Assessment and Plan: Chronic and stable. Etiology unclear. Could be related to PPI use but seems stable. Additional Plan Subjective Date/time seen: 05/22/22 Denies chest pain or shortness of breath. Review of Systems Cardiovascular: Cardiovascular: Denies chest pain Exam Narrative: GENERAL: NAD, cooperative HEENT: Normocephalic, atraumatic, anicteric NECK: Supple CV: Normal S1, S2, RRR, No MRG RESP: CTAB, Normal work of breathing. EXTREMITIES: Warm and well perfused, no clubbing, cyanosis, or edema.ly. SKIN: warm, dry and intact. NEURO: CN 2-12 grossly intact. Objective Data Vital Signs Vital Signs: Vital Signs - 24 hr 05/21/22 20:49 05/21/22 20:50 05/21/22 21:47 Temperature 96.8 F L Pulse Rate 75 75 80 Respiratory Rate 18 Blood Pressure 77/43 L Pulse Oximetry 100 Oxygen Delivery 05/22/22 05:26 05/22/22 05:51 05/22/22 08:26 Temperature 96.3 F L Pulse Rate 70 76 68 Respiratory Rate 18 Blood Pressure 95/60 L Pulse Oximetry 95 Oxygen Delivery 05/22/22 08:15 05/22/22 13:10 05/22/22 14:05 Temperature 97.0 F L Pulse Rate 60 60 Respiratory Rate 16 Blood Pressure 88/58 L Pulse Oximetry 95 Oxygen Delivery Room Air Intake/Output Intake/Output: Intake & Output 05/19/22 05/20/22 05/21/22 05/22/22 23:59 23:59 23:59 23:59 Intake Total 1150 200 250 300 Output Total 1000 260 100 100 Balance 150 -60 150 200 Meds/Results Medications: Active Medications Generic Name Dose Route Start Last Admin Trade Name Freq PRN Reason Stop Dose Admin Al Hydrox/Mg Hydrox/Simethicone 30 ml 05/16/22 09:34 Mag Hydrox/Al Hydrox/Simeth 30 Ml Udc PO QID PRN Dyspepsia Apixaban 5 mg 05/16/22 21:00 05/22/22 08:25 Apixaban 5 Mg Tablet PO 5 mg Q12HR [place] Administration Atorvastatin Calcium 40 mg 05/16/22 09:00 05/22/22 08:26 Atorvastatin 40 M
--- NOTE | 2022-05-22 08:05 | PM.PNCARD ---
Progress Note: A&P Assessment and Plan (1) Acute exacerbation of CHF (congestive heart failure): Qualifiers: Heart failure type: combined systolic and diastolic Qualified Code(s): I50.43 - Acute on chronic combined systolic (congestive) and diastolic (congestive) heart failure Code(s): I50.9 - Heart failure, unspecified Status: Acute Assessment and Plan: Patient with CHF with severely reduced ejection fraction with history of ? nonischemic cardiomyopathy. Continue metoprolol succinate, sacubitril / valsartan, and spironolactone. (2) Cardiomyopathy: Qualifiers: Cardiomyopathy type: unspecified Qualified Code(s): I42.9 - Cardiomyopathy, unspecified Code(s): I42.9 - Cardiomyopathy, unspecified Status: Chronic Assessment and Plan: Severe LV systolic dysfunction EF 20-25% by echocardiogram December 2021. She has a history of moderate MR and severe TR with mild pulmonary hypertension. Medical management as described above. (3) BOO (acute kidney injury): Code(s): N17.9 - Acute kidney failure, unspecified Status: Acute Assessment and Plan: Acute renal insufficiency possibly related to low cardiac output. Slight increase in BUN/Cr today. Shifting to p.o. diuretic as above. May need to reduce Entresto, spironolactone. Continue close monitoring. (4) Chronic a-fib: Code(s): I48.20 - Chronic atrial fibrillation, unspecified Status: Chronic Assessment and Plan: Continue metoprolol succinate and apixaban. Monitor for bleeding. H&H stable. (5) AICD (automatic cardioverter/defibrillator) present: Code(s): Z95.810 - Presence of automatic (implantable) cardiac defibrillator Status: Acute Assessment and Plan: Stable no acute issues. (6) Confusion: Code(s): R41.0 - Disorientation, unspecified Status: Acute Assessment and Plan: Management per primary team (7) Diabetes mellitus: Code(s): E11.9 - Type 2 diabetes mellitus without complications Status: Chronic Assessment and Plan: Management per primary service. Subjective Date/time seen: 05/22/22 08:05 Cardiology follow up for CHF More alert today. Does answer some questions but is not oriented. She denies any chest pain or shortness of breath. Review of Systems Review of Systems: All systems reviewed & are unremarkable except as noted in HPI and below Constitutional: Constitutional: Reports as per HPI, Reports no additional constitutional complaints and Denies body ache(s) Eyes: Eyes: Reports as per HPI and Reports no additional eye complaints ENT: Reports system reviewed and no additional complaints, except as documented, Reports as per HPI and Reports Normal hearing present Cardiovascular: Cardiovascular: Reports as per HPI, Reports no additional cardiovascular complaints and Denies chest pain Respiratory: Respiratory: Reports as per HPI, Reports no additional respiratory complaints and Denies cough Gastrointestinal: Gastrointestinal: Reports as per HPI, Reports no additional gastrointestinal complaints and Denies abdominal pain Genitourinary: Genitourinary: Reports as per HPI and Denies hematuria Musculoskeletal: Musculoskeletal: Reports no additional musculoskeletal complaints and Reports as per HPI Integumentary/Breasts: Skin/Breast: Reports system reviewed and no additional complaints, except as docu and Reports as per HPI Neurologic: Reports system reviewed and no additional complaints, except as documented, Reports as per HPI and Reports Normal hearing present Psychiatric: Psychiatric: Reports no additional psychiatric complaints and Reports as per HPI Endocrine: Endocrine: Reports no additional endocrine complaints and Reports as per HPI Hematologic/Lymphatic: Hematologic/Lymphatic: Reports no additional hematologic/lymphatic complaints and Reports as per HPI Allergic/Immunologic: Allergic/Immunolo
[2022-05-22 08:06] LABS: Hypochromasia 1+ (NORMAL); Platelet Estimate Adequate (Adequate)
[2022-05-22 08:07] LABS: Anisocytosis 1+ (NORMAL); Burr Cells 2+ (NORMAL); Poikilocytosis 1+ (NORMAL); Schistocytes 1+ (NORMAL)
[2022-05-22 08:13] LABS: Glucose Point of Care 134 mg/dl (65-105)
[2022-05-22] MEDS: FUROSEMIDE INJ 40 MG/4 ML VIAL 20 MG IV PUSH (08:25)
[2022-05-22] MEDS: APIXABAN 5 MG TABLET PO ×2 (08:25→21:17)
[2022-05-22] MEDS: LACTULOSE 20 GM/30 ML UDC PO ×3 (08:25→16:34)
[2022-05-22 08:26] VITALS: PULSE 68
[2022-05-22] MEDS: SPIRONOLACTONE 25 MG TABLET PO (08:26)
[2022-05-22] MEDS: METOPROLOL SUCCINATE EXT REL 25 MG TABCR PO ×2 (08:26→21:17)
[2022-05-22] MEDS: SACUBITRIL/VALSARTAN 24-26 MG TABLET 1 TAB PO ×2 (08:26→21:17)
[2022-05-22] MEDS: ATORVASTATIN 40 MG TABLET PO (08:26)
[2022-05-22] MEDS: CITALOPRAM HYDROBROMIDE 20 MG TABLET PO (08:26)
[2022-05-22 11:37] LABS: Glucose Point of Care 123 mg/dl (65-105)
[2022-05-22 13:10] VITALS: PULSE 60
[2022-05-22 14:05] VITALS: BP 88/58; PULSE 60; RESP 16; TEMP 36.1; O2SAT 95
[2022-05-22] MEDS: FUROSEMIDE 40 MG TABLET PO (16:34)
[2022-05-22 17:08] LABS: Glucose Point of Care 152 mg/dl (65-105)
[2022-05-22] MEDS: GABAPENTIN 300 MG CAPSULE PO (21:17)
[2022-05-22] MEDS: PANTOPRAZOLE 40 MG TABLET PO (21:17)
[2022-05-22 21:42] LABS: Glucose Point of Care 124 mg/dl (65-105)
[2022-05-22 22:00] VITALS: BP 82/52; PULSE 76; RESP 16; TEMP 36.3; O2SAT 98
[2022-05-23 06:00] VITALS: BP 83/54; PULSE 77; RESP 14; TEMP 36.6; O2SAT 90
[2022-05-23 06:01] LABS: Glucose Point of Care 124 mg/dl (65-105)
[2022-05-23 06:29] LABS: Basophils Percent Auto 0.6 % (0.2-1.2); Eosinophils Absolute Auto 0.2 K/mm3 (0-0.3); Eosinophils Percent Auto 2.4 % (0-4.4); Hematocrit 37.8 % (37.0-47.0); Immature Granulocyte Absolute 0.03 K/mm3 (0.00-0.031); Immature Granulocyte Percent A 0.5 % (0-0.5); Lymphocytes Absolute Auto 0.96 K/mm3 (0.9-3.2); Lymphocytes Percent Auto 14.7 % (18.3-44.2); Mean Corpuscular HGB Conc 29.1 g/dl (32-36); Mean Corpuscular Hemoglobin 26.4 pg (26-34); Mean Corpuscular Volume 90.9 fl (80-100); Mean Platelet Volume 11.1 fl (7.4-10.4); Monocytes Absolute Auto 0.7 K/mm3 (0.1-0.6); Monocytes Percent Auto 10.4 % (2.6-8.5); Neutrophils Absolute Auto 4.7 K/mm3 (1.3-6.7); Neutrophils Percent Auto 71.4 % (45.5-73.1); Platelet Count Result 144 k/mm3 (150-375); Red Blood Count 4.16 M/mm3 (4.2-5.4); Red Cell Distribution Width 17.7 % (11.5-14.5); White Blood Count 6.5 K/mm3 (4.5-10.0)
--- NOTE | 2022-05-23 06:46 | P.PNCROSS_ITS ---
Event Note Event Note Event Note: I was called to patient's bedside after patient was witnessed to have seizure a nd immediately went into postictal stage. Objective: patient is in postictal stage subjective: Patient post ictal general: Patient laying in bed angle of 30? nasal cannula oz 2 L of of oxygen HEENT: Atraumatic normocephalic pupils are 3 mm in diameter and reactive neck is supple, no JVD. respiratory: Patient is noted to have a spontaneous nose breathing no distress and sounds clear cardiovascular: Patient has good pulse. Abdomen: Soft nontender nondistended. Muscle skeletal: No edema central nervous system: Post ictal state, muscle tone is even throughout. assessment and plan 1. seizure: will obtain set of chemistry and CBC, lactic acid, ABG, CT of the head supportive care neurochecks q.2 hours consider Neurology consult
[2022-05-23 06:55] LABS: Base Excess ABG 4.4 mEq/l (+/-2.0); Carboxyhemoglobin 0.3 % THb (0-2.0); Fractional Inspired Oxygen 28 %; HCO3 ABG 28.7 mEq/l (22.0-26.0); Methemoglobin ABG 0.6 %THb (0-1.5); Oxygen Content ABG 16.5 %vol (16.0-22.0); Oxygen Saturation ABG 98.9 % (95.0-100.0); Oxyhemoglobin 97.2 % THb (90.0-100.0); PCO2 ABG 41.8 mmHg (35.0-45.0); PO2 ABG 138.3 mmHg (80.0-100.0); PO2 FiO2 Ratio Arterial Blood 4.94 %; Reduced Hemoglobin 1.9 %THb (0-5.0); Total Hemoglobin 11.9 g/dL (12.0-18.0); pH ABG 7.455 (7.350-7.450)
[2022-05-23 06:58] LABS: Device NASAL CANNULA; Modified Allen's Test Pass; Site Drawn RIGHT RADIAL
[2022-05-23 07:07] LABS: Lactic Acid Reflex 1.3 mmol/L (0.7-2.0)
[2022-05-23 07:17] LABS: Alanine Aminotransferase 10 U/L (6-35); Albumin Level 3.1 g/dL (3.5-5.1); Alkaline Phosphatase 97 U/L (38-126); Anion Gap 11 mmol/L (8-16); Aspartate Amino Transferase 25 U/L (14-36); Bilirubin,Total 2.1 mg/dL (0.2-1.3); Blood Urea Nitrogen 39 mg/dL (7-17); Carbon Dioxide 31 mmol/L (22-30); Chloride 99 mmol/L (98-107); Estimated CRCL calculation 20 ml/min; Estimated Glomerular Filt Rate 21; Glucose 118 mg/dL (65-110); Potassium 4.5 mmol/L (3.4-5.0); Sodium 141 mmol/L (137-145)
[2022-05-23 07:25] LABS: NT Pro B Type Natriuretic Pept 13000 pg/mL (5-100)
--- NOTE | 2022-05-23 07:40 | PM.IMPN ---
Progress Note: A&P Assessment and Plan (1) Acute exacerbation of CHF (congestive heart failure): Qualifiers: Heart failure type: combined systolic and diastolic Qualified Code(s): I50.43 - Acute on chronic combined systolic (congestive) and diastolic (congestive) heart failure Code(s): I50.9 - Heart failure, unspecified Status: Acute Assessment and Plan: - Cardiomyopathy and HFrEF with AICD in place. - Echocardiogram for January 19, 2022 showed a mildly enlarged left ventricular chamber was severely reduced left ventricular systolic function of 20-25%. There is mild pulmonary hypertension with 37 mmHg. There is moderate mitral valve regurgitation and severe tricuspid regurgitation.?BNP noted to be elevated 8120 on admission with repeat 13,000 today. CXR with small lung volumes and significant pleural effusions. Patient requiring oxygen. -Will make NPO after midnight and order thoracentesis for Wednesday, May 24, 2022. While BNP is more elevated, LFTs are not elevated, so no hepatic congestion which suggests the heart function may not be worsening. -Furosemide IV held due to creatinine -Continue spironolactone 25 mg po daily -Continue entresto low dose (2) Seizure: Code(s): R56.9 - Unspecified convulsions Status: Acute Assessment and Plan: This is questionable. If so it is new onset. Per [facility] nurse, patient not on any benzodiazepines or antiepileptic medications in the past. CT head showed no acute intracranial process. Patient was not loaded and started on keppra or any other medication for seizures immediately after the reported witnessed seizure. She is chronically on gabapentin. -MRI ordered -Consult Neurology (3) BOO (acute kidney injury): Code(s): N17.9 - Acute kidney failure, unspecified Status: Acute Assessment and Plan: Baseline creatinine is 1.0-1.4. Creatinine continues to rise but there is a note not to hold BP meds unless systolic less than 80. -Nephrology -Urine lytes with AM labs (4) Chronic a-fib: Code(s): I48.20 - Chronic atrial fibrillation, unspecified Status: Chronic Assessment and Plan: Rate controlled on mexiletine and metoprolol. Continue home medications. (5) Diabetes mellitus: Code(s): E11.9 - Type 2 diabetes mellitus without complications Status: Chronic Assessment and Plan: - SSI - Hypoglycemia protocol - A1C 7.9 - Glucose checks AC and HS. (6) Hyperlipidemia: Code(s): E78.5 - Hyperlipidemia, unspecified Status: Chronic Assessment and Plan: - Continue home statin. (7) Hypothyroidism: Code(s): E03.9 - Hypothyroidism, unspecified Status: Acute Assessment and Plan: Continue home levothyroxine. (8) Thrombocytopenia: Code(s): D69.6 - Thrombocytopenia, unspecified Status: Acute Assessment and Plan: Chronic and stable. Etiology unclear. Could be related to PPI use but seems stable. Additional Plan Subjective Date/time seen: 05/23/22 07:40 Patient is very sleepy this morning after a reported seizure. Per nursing, phlebotomy was in the room drawing blood from the patient in bed two and noticed the patient's feet shaking in almost a clonus like motion. Patient does not have a seizure history as verified from [facility] and at baseline the patient is alert and oriented x 2 with itermittent confusion. Says patient sometimes has delayed answers due to poor hearing but that she will answer questions. Exam Narrative: GENERAL: NAD, cooperative HEENT: Normocephalic, atraumatic, anicteric NECK: Supple CV: Normal S1, S2, regular rate, No MRG RESP: Diminished breath sounds EXTREMITIES: Warm and well perfused, no clubbing, cyanosis, or edema. SKIN: warm, dry and intact. NEURO: CN 2-12 grossly intact. Somnolent Objective Data Vital Signs Vital Signs: Vital Sign
[2022-05-23 08:00] LABS: Glucose Point of Care 124 mg/dl (65-105)
[2022-05-23 08:10] VITALS: O2SAT 93
[2022-05-23 09:40] LABS: Burr Cells 1+ (NORMAL); Hypochromasia 1+ (NORMAL); Ovalocytes 1+ (NORMAL)
--- NOTE | 2022-05-23 10:43 | PM.PNCARD ---
Progress Note: A&P Assessment and Plan (1) Acute exacerbation of CHF (congestive heart failure): Qualifiers: Heart failure type: combined systolic and diastolic Qualified Code(s): I50.43 - Acute on chronic combined systolic (congestive) and diastolic (congestive) heart failure Code(s): I50.9 - Heart failure, unspecified Status: Acute Assessment and Plan: Patient with CHF with severely reduced ejection fraction with history of ? nonischemic cardiomyopathy. Continue metoprolol succinate, sacubitril / valsartan, and spironolactone. Currently taking furosemide 40 mg BID po (home dose); will hold a couple of doses 2nd worsening renal fxn. (2) Cardiomyopathy: Qualifiers: Cardiomyopathy type: unspecified Qualified Code(s): I42.9 - Cardiomyopathy, unspecified Code(s): I42.9 - Cardiomyopathy, unspecified Status: Chronic Assessment and Plan: Severe LV systolic dysfunction EF 20-25% by echocardiogram December 2021. She has a history of moderate MR and severe TR with mild pulmonary hypertension. Medical management as described above. (3) BOO (acute kidney injury): Code(s): N17.9 - Acute kidney failure, unspecified Status: Acute Assessment and Plan: Acute renal insufficiency possibly related to low cardiac output. BUN and creatinine again increased. Changed to p.o. furosemide yesterday;will hold a couple doses and re-evaluate tomorrow. May need to reduce Entresto, spironolactone. Continue daily BMP (4) Chronic a-fib: Code(s): I48.20 - Chronic atrial fibrillation, unspecified Status: Chronic Assessment and Plan: Continue metoprolol succinate and apixaban. Monitor for bleeding. H&H stable. (5) AICD (automatic cardioverter/defibrillator) present: Code(s): Z95.810 - Presence of automatic (implantable) cardiac defibrillator Status: Acute Assessment and Plan: Stable no acute issues. (6) Confusion: Code(s): R41.0 - Disorientation, unspecified Status: Acute Assessment and Plan: Management per primary team (7) Diabetes mellitus: Code(s): E11.9 - Type 2 diabetes mellitus without complications Status: Chronic Assessment and Plan: Management per primary service. Subjective Date/time seen: 05/23/22 10:43 Interval history: Follow-up for CHF Date of service 05 20 2022-Patient was sitting up in the bed at the time of evaluation. She appeared somnolent but arousable. Denies any chest pain or shortness of breath. 05/22/22? More alert today.? Does answer some questions but is not oriented.? She denies any chest pain or shortness of breath.? Change furosemide to p.o.. Date of service 05/23/2022: Somnolent but appears comfortable. Remains on O2 at 2 L. Systolic blood pressure running low overnight, in the 80s. Not unusual to have low blood pressure. Review of Systems Review of Systems: ROS unobtainable: Yes unobtainable due to mental status (ROS obtained fr EMR) Cardiovascular: Cardiovascular: Denies chest pain Respiratory: Respiratory: Denies dyspnea Gastrointestinal: Gastrointestinal: Reports no additional gastrointestinal complaints Exam Const: General: comfortable and no acute distress HENMT: Mouth: Yes moist mucous membranes Resp: Effort & Inspection: normal respiratory effort Auscultation: clear to auscultation bilaterally Cardio: Rate: regular rate Rhythm: abnormal rhythm irregularly irregular Heart sounds: no murmurs GI: Inspection: non-distended GI Palp: No Tenderness to palpation present (GI) Urinary Catheter: Urinary Catheter: patent and draining and urine clear Skin: General skin exam: no rashes or lesions noted (except for ecchymosis at IV sites and phlebotomoy sites.) Neuro: Speech: No normal speech Other: Somnolent, barely arouses to stimulation Extrem: General: edema Other: Mild lower tibial edema Psych: Mental Stat
--- NOTE | 2022-05-23 11:00 | PCPTNOTE ---
PT attempted to see patient for therapy, however patent very lethargic and unarousable. PT will continue to follow per plan of care.
[2022-05-23 12:14] LABS: Glucose Point of Care 116 mg/dl (65-105)
[2022-05-23 13:31] VITALS: PULSE 62
[2022-05-23] MEDS: MEXILETINE HCL 150 MG CAPSULE 300 MG PO ×2 (13:31→19:57)
[2022-05-23] MEDS: LACTULOSE 20 GM/30 ML UDC PO ×2 (13:31→17:29)
[2022-05-23 14:00] VITALS: BP 74/52; PULSE 80; RESP 20; TEMP 36
[2022-05-23 15:28] VITALS: O2SAT 94
[2022-05-23 16:10] LABS: Glucose Point of Care 146 mg/dl (65-105)
[2022-05-23] MEDS: PANTOPRAZOLE 40 MG TABLET PO (19:57)
[2022-05-23] MEDS: GABAPENTIN 300 MG CAPSULE PO (19:57)
[2022-05-23] MEDS: APIXABAN 5 MG TABLET PO (19:58)
[2022-05-23] MEDS: SACUBITRIL/VALSARTAN 24-26 MG TABLET 1 TAB PO (19:58)
[2022-05-23 22:09] LABS: Albumin Level 2.8 g/dL (3.5-5.1); Amylase 52 U/L (30-110); Cholesterol 60 mg/dL (0-200); Glucose 107 mg/dL (65-110); Lactate Dehydrogenase 562 U/L (313-618)
[2022-05-23 22:15] LABS: Triglycerides 70 mg/dL (<150)
[2022-05-24] VITALS (9 sets, daily range): BP systolic 82–105; BP diastolic 58–71; PULSE 57–84; RESP 16; TEMP 36.1–36.6; O2SAT 96–99
[2022-05-24] MEDS: MEXILETINE HCL 150 MG CAPSULE 300 MG PO ×3 (05:49→20:33)
[2022-05-24] MEDS: LEVOTHYROXINE SODIUM 25 MCG TABLET PO (05:50)
[2022-05-24 06:26] LABS: Basophils Percent Auto 0.5 % (0.2-1.2); Eosinophils Absolute Auto 0.2 K/mm3 (0-0.3); Eosinophils Percent Auto 3.6 % (0-4.4); Hematocrit 36.3 % (37.0-47.0); Immature Granulocyte Absolute 0.01 K/mm3 (0.00-0.031); Immature Granulocyte Percent A 0.2 % (0-0.5); Lymphocytes Absolute Auto 0.78 K/mm3 (0.9-3.2); Lymphocytes Percent Auto 17.8 % (18.3-44.2); Mean Corpuscular HGB Conc 30.3 g/dl (32-36); Mean Corpuscular Hemoglobin 27.1 pg (26-34); Mean Corpuscular Volume 89.4 fl (80-100); Mean Platelet Volume 12.2 fl (7.4-10.4); Monocytes Absolute Auto 0.5 K/mm3 (0.1-0.6); Monocytes Percent Auto 10.3 % (2.6-8.5); Neutrophils Percent Auto 67.6 % (45.5-73.1); Platelet Count Result 151 k/mm3 (150-375); Red Blood Count 4.06 M/mm3 (4.2-5.4); Red Cell Distribution Width 17.7 % (11.5-14.5); White Blood Count 4.4 K/mm3 (4.5-10.0)
[2022-05-24 06:28] LABS: INR 2.5
[2022-05-24 06:35] LABS: Anion Gap 7 mmol/L (8-16); Blood Urea Nitrogen 44 mg/dL (7-17); Calcium 8.1 mg/dL (8.4-10.2); Carbon Dioxide 31 mmol/L (22-30); Chloride 100 mmol/L (98-107); Estimated CRCL calculation 19 ml/min; Estimated Glomerular Filt Rate 20; Glucose 86 mg/dL (65-110); Potassium 4.3 mmol/L (3.4-5.0); Sodium 138 mmol/L (137-145)
[2022-05-24 07:56] LABS: Glucose Point of Care 92 mg/dl (65-105)
[2022-05-24] MEDS: ATORVASTATIN 40 MG TABLET PO (08:10)
[2022-05-24] MEDS: LACTULOSE 20 GM/30 ML UDC PO ×3 (08:10→17:03)
[2022-05-24] MEDS: CITALOPRAM HYDROBROMIDE 20 MG TABLET PO (08:10)
[2022-05-24] MEDS: SACUBITRIL/VALSARTAN 24-26 MG TABLET 1 TAB PO ×2 (08:12→20:34)
--- NOTE | 2022-05-24 08:14 | PC.NURSE ---
ultrasound called and stated they can not do the throacentesis today due to pt having eliquis last night. will have procedure tomorrow and make npo tonight and holding eliquis today.
--- NOTE | 2022-05-24 09:49 | PM.CNNEP ---
Assessment and Plan Additional Plan 1. Patient most likely does have chronic kidney disease. She has periods where her creatinine is better, however for the most part the creatinine is a little bit elevated. I suspect that this is mostly chronic pre renal azotemia because of her poorly functioning heart. The variation is most likely due to changes in blood pressure and also in doses of medications. 2. Patient has had a recent rise in her creatinine. Her creatinine actually started out at this level at the beginning of this hospital stay but improved with diuresis. She may have had renal venous hypertension at the time leading to home am improvement of her creatinine with the diuretics. On the other hand, the blood pressure did improve over the 1st couple of days of the hospital stay. It began in the 80s and 90s and by the it was between 95 and 110. So the improved blood pressure might have been the reason for the better creatinine. After that the creatinine seem to be relatively stable until just the last couple of days. Her chest x-ray actually is worse now than it was on admission with larger pleural effusions. The patient was getting furosemide 40 b.i.d. from the to and then 20 b.i.d. from the to . Then she was switched to p.o. She has not received any other medications that might bother the kidneys such as antibiotics or nonsteroidal anti-inflammatory agents. The fact that her chest x-ray is worse and her creatinine is worse suggests either that the low blood pressure is the cause or renal venous hypertension is the cause. There other possibilities such as obstruction or rhabdomyolysis which could always be the case. Allergic interstitial nephritis and glomerulonephritis are unlikely. Will check urine electrolytes, renal ultrasound, cpk. She is not short of breath right now so I think we can wait a day and see what these tests show before changing the diuretics. 3. The patient has congestive cardiomyopathy with a very low cardiac output and also has tricuspid regurgitation. She has an AICD. 4. The patient has chronic low blood pressure. It ranges in the 80-110 range. 5. Status post CVA. No new symptoms. 6. The patient has chronic low blood pressure. This is most likely due to her heart. Check a cortisol and a TSH to be complete. History of Present Illness Reason for Consult Consult date: 05/24/22 Chief Complaint Chief complaint: chf exacerbation History of Present Illness Narrative: Pricila is a very pleasant but unfortunate 77-year-old lady who has multiple medical problems including congestive cardiomyopathy, AICD placement, atrial fibrillation, stroke, diabetes, hyperlipidemia, hypotension, who came in the hospital because of fluid overload. She was seen in the emergency room and found to have some swelling. Chest x-ray showed small pleural effusions and cardiomegaly. She has been on oxygen [id number]/minute since admission. She was admitted. She was given IV Lasix for few days. For the 1st couple of days of admission she made a lot of urine. during that couple of days her creatinine did come down a bit. After that Her urine output decreased and her creatinine seemed to plateau. She continues to make very little urine ranging between 102 60. She has a Smith catheter in. Her blood pressure generally runs low. It generally runs between 80 and 110 according to the records. Cardiology sees the patient and says not to hold the anti hypertensives/ cardiomyopathy medications unless the blood pressure is less than 80. is because of the severity of her cardiomyopathy. Her blood pressures seem to improve a little bit mid admission but lately have been back to the 80-120 range. the patient does have a variable creatinine ranging anywhere from 1.2-1.7 for the most part over the course of the last 4 years. She was in the hospital in January and had a creatinine of about 1
[2022-05-24 10:36] LABS: Creatine Kinase 88 U/L (30-135)
[2022-05-24 11:41] LABS: Glucose Point of Care 112 mg/dl (65-105)
[2022-05-24 12:59] LABS: Creatinine Urine 163.9 mg/dL; Total Protein Urine Random 27 mg/dL; Ur Ttl Prot Creatinine Ratio 0.16 mg/mg (0-0.20); Urea Random Urine 575 MG/DL
[2022-05-24 13:03] LABS: Sodium Urine Random 28 meq/L
--- NOTE | 2022-05-24 14:17 | PM.IMPN ---
Progress Note: A&P Assessment and Plan (1) Acute exacerbation of CHF (congestive heart failure): Qualifiers: Heart failure type: combined systolic and diastolic Qualified Code(s): I50.43 - Acute on chronic combined systolic (congestive) and diastolic (congestive) heart failure Code(s): I50.9 - Heart failure, unspecified Status: Acute Assessment and Plan: Patient brought to the emergency room because she looked ?puffy?. EKG showed AFib with controlled rate with nonspecific ST T wave changes. Echo in December 2021 showing EF 20-25%, moderate MR, severe TR. CXR showing small pleural effusions on admission. BNP 8100 with repeat at 13K. Repeat CXR now showing left pleural effusion and scattered opacities. Furosemide IV held due to BOO. Continue Entresto low dose but hold spironolactone due to HoTN which could be contributing to her BOO. Cardiology following and appreciate their input. Thoracentesis ordered. (2) Seizure: Code(s): R56.9 - Unspecified convulsions Status: Acute Assessment and Plan: This is questionable but if so, then new onset. Per residential nurse, patient not on any benzodiazepines or antiepileptic medications in the past. CT head showed no acute intracranial process but shows chronic bilateral infarcts and atrophy. Patient was started on antiepileptic medications. She is chronically on gabapentin which has been continued. No MR due to that she has a ICD. Neuro consult ordered. Seizure precautions. (3) BOO (acute kidney injury): Code(s): N17.9 - Acute kidney failure, unspecified Status: Acute Assessment and Plan: Baseline creatinine is 1.0-1.4. Creatinine elevated on admission at 2.1 that improved to 1.4 before climbing again to 2.4 today. No exposure to contrast. Could be related to HoTN. Dehydrated? Andrea 28 with FENa 0.3%. Nephrology following and appreciate their input. Lasix on hold. Will hold spironolactone today. (4) Chronic a-fib: Code(s): I48.20 - Chronic atrial fibrillation, unspecified Status: Chronic Assessment and Plan: Rate controlled on mexiletine and metoprolol. Eliquis on hold currently. Continue home medications. (5) Diabetes mellitus: Code(s): E11.9 - Type 2 diabetes mellitus without complications Status: Chronic Assessment and Plan: A1c 7.9. The patient's blood glucose was reviewed on 05/24 Glucose remains well controlled. Continue AccuCheks covering with sliding scale. Hypoglycemia protocol available as needed. Continue to monitor. (6) Hyperlipidemia: Code(s): E78.5 - Hyperlipidemia, unspecified Status: Chronic Assessment and Plan: Total creatinine kinase is normal. She has elevated bilirubin level but AST and ALT are normal. Continue Lipitor (7) Hypothyroidism: Code(s): E03.9 - Hypothyroidism, unspecified Status: Acute Assessment and Plan: TSH normal. Continue home levothyroxine. (8) Thrombocytopenia: Code(s): D69.6 - Thrombocytopenia, unspecified Status: Acute Assessment and Plan: Patient with mild thrombocytopenia. Currently platelet count is normal. Continue to follow. Plan DVT prophylaxis: Eliquis (had SCDs since Eliquis on hold) Code status: Full Diet: Diabetic Subjective Date/time seen: 05/24/22 14:17 Interval history: 77yo female with cAFib, DM and CHF here for looking 'puffy' and found to have CHF exacerbation. Patient is alert but confused. She is unable to provide history. Spoke with the nurse who stated that the patient's blood pressure at the residential normally runs about 110 systolic. Blood pressure has been lower here. According to the admission H&P however, it appears the patient has chronic hypotension with instructions not to hold any blood pressure medications unless systolic blood pressure less than 80. The patient may have had a witnessed seizure but
--- NOTE | 2022-05-24 14:36 | PM.PNCARD ---
Progress Note: A&P Assessment and Plan (1) Acute exacerbation of CHF (congestive heart failure): Qualifiers: Heart failure type: combined systolic and diastolic Qualified Code(s): I50.43 - Acute on chronic combined systolic (congestive) and diastolic (congestive) heart failure Code(s): I50.9 - Heart failure, unspecified Status: Acute Assessment and Plan: Patient with CHF with severely reduced ejection fraction with history of ? nonischemic cardiomyopathy. Home meds include metoprolol succinate, sacubitril / valsartan, furosemide 40 mg b.i.d. and spironolactone. Furosemide and now spironolactone on hold due to worsening renal function. Possibly worsening pleural effusion, but the chest x-ray is limited due to a very poor inspiratory effort. ProBNP even higher 05/23/2022 however, 8,000 ---> 13,000. (2) Cardiomyopathy: Qualifiers: Cardiomyopathy type: unspecified Qualified Code(s): I42.9 - Cardiomyopathy, unspecified Code(s): I42.9 - Cardiomyopathy, unspecified Status: Chronic Assessment and Plan: Severe LV systolic dysfunction EF 20-25% by echocardiogram December 2021. She has a history of moderate MR and severe TR with mild pulmonary hypertension. Medical management as described above. (3) BOO (acute kidney injury): Code(s): N17.9 - Acute kidney failure, unspecified Status: Acute Assessment and Plan: Acute renal insufficiency possibly related to low cardiac output and perhaps hypotension. BUN and creatinine again increased. Furosemide and spironolactone on hold. Hold Entresto of systolic blood pressures less than 95 mmHg. Continue daily BMP (4) Chronic a-fib: Code(s): I48.20 - Chronic atrial fibrillation, unspecified Status: Chronic Assessment and Plan: Continue metoprolol succinate and apixaban. Monitor for bleeding. H&H stable. Has been on Eliquis; on hold now, perhaps for anticipated thoracentesis? (5) AICD (automatic cardioverter/defibrillator) present: Code(s): Z95.810 - Presence of automatic (implantable) cardiac defibrillator Status: Acute Assessment and Plan: Stable no acute issues. (6) Confusion: Code(s): R41.0 - Disorientation, unspecified Status: Acute Assessment and Plan: Management per primary team Subjective Date/time seen: 05/24/22 14:36 Interval history: Follow-up for CHF. H/O nonischemic cardiomyopathy with an EF of 20-25%, moderate MR and severe TR, persistent atrial fibrillation, ICD, stroke, diabetes, and chronic heart failure managed by managed by Dr. Kapadia at [facility]. Lives in an extended care facility. 05 20 2022-Patient was sitting up in the bed at the time of evaluation. She appeared somnolent but arousable. Denies any chest pain or shortness of breath. 05/22/22: More alert today.? Does answer some questions but is not oriented.? She denies any chest pain or shortness of breath.? Change furosemide to p.o.. 05/23/2022: Somnolent but appears comfortable. Remains on O2 at 2 L. Systolic blood pressure running low overnight, in the 80s. Not unusual to have low blood pressure. Date of service 05/24/2022: Questionable seizure yesterday (foot was twitching). Fed herself breakfast today, now sleeping. Blood pressure still running low, often in the 80s. Sometimes lower, in the 70s. BUN and creatinine are still rising those more slowly. Head CT, done for somnolence and possible sz, showed no acute findings but old strokes. Review of Systems Review of Systems: ROS unobtainable: Yes unobtainable due to mental status (pt has dementia. ) Constitutional: Comments: Some of the review of systems was obtained from the patient, the rest from her CROSSING GUARD and EMR. Cardiovascular: Cardiovascular: Denies chest pain and Denies dyspnea Respiratory: Respiratory: Denies dyspnea Gastrointestinal: Gastrointestinal:
[2022-05-24 16:56] LABS: Glucose Point of Care 138 mg/dl (65-105)
[2022-05-24] MEDS: METOPROLOL SUCCINATE EXT REL 25 MG TABCR PO (20:33)
[2022-05-24] MEDS: GABAPENTIN 300 MG CAPSULE PO (20:34)
[2022-05-24] MEDS: PANTOPRAZOLE 40 MG TABLET PO (20:34)
[2022-05-25] VITALS (8 sets, daily range): BP systolic 102–110; BP diastolic 60–72; PULSE 83–104; RESP 18–20; TEMP 36.2; O2SAT 92–98; BMI 31.1
[2022-05-25] MEDS: LEVOTHYROXINE SODIUM 25 MCG TABLET PO (05:23)
[2022-05-25] MEDS: MEXILETINE HCL 150 MG CAPSULE 300 MG PO ×3 (05:23→19:37)
[2022-05-25 06:17] LABS: Basophils Percent Auto 0.6 % (0.2-1.2); Eosinophils Absolute Auto 0.2 K/mm3 (0-0.3); Eosinophils Percent Auto 3.2 % (0-4.4); Hematocrit 37.6 % (37.0-47.0); Immature Granulocyte Absolute 0.01 K/mm3 (0.00-0.031); Immature Granulocyte Percent A 0.2 % (0-0.5); Mean Corpuscular HGB Conc 29.3 g/dl (32-36); Mean Corpuscular Hemoglobin 26.2 pg (26-34); Mean Corpuscular Volume 89.5 fl (80-100); Mean Platelet Volume 11.3 fl (7.4-10.4); Monocytes Absolute Auto 0.5 K/mm3 (0.1-0.6); Monocytes Percent Auto 10.1 % (2.6-8.5); Neutrophils Absolute Auto 3.3 K/mm3 (1.3-6.7); Neutrophils Percent Auto 70.9 % (45.5-73.1); Platelet Count Result 145 k/mm3 (150-375); Red Cell Distribution Width 17.7 % (11.5-14.5); White Blood Count 4.7 K/mm3 (4.5-10.0)
[2022-05-25 06:44] LABS: Alanine Aminotransferase 8 U/L (6-35); Alkaline Phosphatase 89 U/L (38-126); Anion Gap 10 mmol/L (8-16); Aspartate Amino Transferase 27 U/L (14-36); Bilirubin Indirect 0.7 mg/dL (0-1.1); Bilirubin,Total 2.1 mg/dL (0.2-1.3); Blood Urea Nitrogen 45 mg/dL (7-17); Calcium 8.1 mg/dL (8.4-10.2); Carbon Dioxide 29 mmol/L (22-30); Chloride 98 mmol/L (98-107); Estimated CRCL calculation 21 ml/min; Estimated Glomerular Filt Rate 23; Glucose 133 mg/dL (65-110); Magnesium 2.3 mg/dL (1.6-2.3); Phosphorus 3.6 mg/dL (2.5-4.5); Potassium 4.5 mmol/L (3.4-5.0); Sodium 137 mmol/L (137-145)
[2022-05-25 07:33] LABS: Glucose Point of Care 130 mg/dl (65-105)
--- NOTE | 2022-05-25 08:51 | PM.PNNEP ---
Progress Note: A&P Additional Plan 1. Patient most likely does have chronic kidney disease. She has periods where her creatinine is better, however for the most part the creatinine is a little bit elevated. I suspect that this is mostly chronic pre renal azotemia because of her poorly functioning heart. 2. Patient has had a recent rise in her creatinine. Renal ultrasound shows Bosniak 2 cyst. UA showed hematuria and pyuria. Urine protein to creatinine ratio was only 160. Urine electrolytes show pre renal azotemia with a low fractional excretion of sodium. this may be due to pre renal azotemia from her poorly functioning heart. She also had low blood pressure at times it seems that the lower blood pressures, when they were in the 80s and 90s are correlated with her higher creatinine. Renal venous hypertension could always be the culprit as well. Her blood pressure is above 100 today, and her creatinine is better. If the blood pressure dips down in the creatinine worsens again considering reducing Entresto or other antihypertensive. 3. The patient has congestive cardiomyopathy with a very low cardiac output and also has tricuspid regurgitation. She has an AICD. 4. The patient has chronic low blood pressure. It ranges in the 80-110 range. 5. Status post CVA. No new symptoms. 6. The patient has chronic low blood pressure. This is most likely due to her heart. TSH is normal. Cortisol is surprisingly low. Possibly due to the spironolactone? Will get a Cortrosyn stim test. Subjective Date/time seen: 05/25/22 08:51 Interval history: the patient is somewhat withdrawn. The she know she is in a hospital but can't name anything more. When I ask her the year she says [id number]. Exam Narrative: WDWN in NAD skin no rash head ncat lungs Decreased breath sounds at the bases cor reg no rub abd BS+ nontender and soft ext 2+ edema. Objective Data Vital Signs Vital Signs: Vital Signs - 24 hr 05/24/22 09:19 05/24/22 13:13 05/24/22 15:01 Temperature Pulse Rate 60 Respiratory Rate Blood Pressure Pulse Oximetry 98 99 Oxygen Delivery Nasal Cannula Nasal Cannula Oxygen Flow Rate 2 1 05/24/22 14:00 05/24/22 20:33 05/24/22 20:33 Temperature 36.6 C Pulse Rate 84 81 81 Respiratory Rate 16 Blood Pressure 85/58 L Pulse Oximetry 99 Oxygen Delivery Oxygen Flow Rate 05/24/22 21:54 05/25/22 05:23 Temperature 36.1 C L Pulse Rate 84 101 H Respiratory Rate 16 Blood Pressure 105/71 Pulse Oximetry 98 Oxygen Delivery Oxygen Flow Rate Intake/Output Intake/Output: Intake & Output 05/22/22 05/23/22 05/24/22 05/25/22 23:59 23:59 23:59 23:59 Intake Total 339 471 9444 0 Output Total 100 250 350 250 Balance 200 610 690 -250 Meds/Results Medications: Active Medications Generic Name Dose Route Start Last Admin Trade Name Freq PRN Reason Stop Dose Admin Al Hydrox/Mg Hydrox/Simethicone 30 ml 05/16/22 09:34 Mag Hydrox/Al Hydrox/Simeth 30 Ml Udc PO QID PRN Dyspepsia Apixaban 5 mg 05/16/22 21:00 05/23/22 19:58 Apixaban 5 Mg Tablet PO 5 mg Q12HR [place] Administration Atorvastatin Calcium 40 mg 05/16/22 09:00 05/24/22 08:10 Atorvastatin 40 Mg Tablet PO 40 mg DAILY [place] Administration Bisacodyl 10 mg 05/16/22 09:34 Bisacodyl 10 Mg Suppository RECTAL DAILY PRN Constipation Bisacodyl 5 mg 05/16/22 09:34 Bisacodyl 5 Mg Tablet Ec PO BID PRN Constipation Citalopram Hydrobromide 20 mg 05/16/22 09:00 05/24/22 08:10 Citalopram Hydrobromide 20 Mg Tablet PO 20 mg DAILY [place] Administration Dextrose 12.5 gm 05/15/22 21:35 Dextrose 50% 25 Gm/50 Ml Syringe IV PUSH PRN PRN Hypoglycemia Protocol Furosemide 40 mg 05/22/22 17:00 05/23/22 08:21 Furosemide 40 Mg Tablet PO Not Given BID [place] Gabapentin 300 mg 05/16/22 21:00 05/24/22 20:34 Gabapen
[2022-05-25] MEDS: COSYNTROPIN 0.25 MG/ML VIAL IV PUSH (10:09)
--- NOTE | 2022-05-25 10:37 | PCPTNOTE ---
The patient treatment was not able to be completed at this time due to patient having EEG testing done at bedside. Will plan to continue treatment per plan of care.
[2022-05-25 11:21] LABS: Glucose Point of Care 121 mg/dl (65-105)
--- NOTE | 2022-05-25 12:47 | PM.PNCARD ---
Progress Note: A&P Assessment and Plan (1) Acute exacerbation of CHF (congestive heart failure): Qualifiers: Heart failure type: combined systolic and diastolic Qualified Code(s): I50.43 - Acute on chronic combined systolic (congestive) and diastolic (congestive) heart failure Code(s): I50.9 - Heart failure, unspecified Status: Acute Assessment and Plan: Patient with CHF with severely reduced ejection fraction with history of ? nonischemic cardiomyopathy. Home meds include metoprolol succinate, sacubitril / valsartan. furosemide 40 mg b.i.d. and spironolactone on hold due to BOO and hypotension. Monitor BP, not documented from this morning. May need to reduce Entresto if hypotension persists. Possibly worsening pleural effusion, but the chest x-ray is limited due to a very poor inspiratory effort. Repeat chest x-ray. ProBNP 13,000. BP stable, renal function improving off diuretics, however, she will require diuretic therapy. Patient overall has a guarded prognosis. (2) Cardiomyopathy: Qualifiers: Cardiomyopathy type: unspecified Qualified Code(s): I42.9 - Cardiomyopathy, unspecified Code(s): I42.9 - Cardiomyopathy, unspecified Status: Chronic Assessment and Plan: Severe LV systolic dysfunction EF 20-25% by echocardiogram December 2021. She has a history of moderate MR and severe TR with mild pulmonary hypertension. Medical management as described above. (3) BOO (acute kidney injury): Code(s): N17.9 - Acute kidney failure, unspecified Status: Acute Assessment and Plan: Acute renal insufficiency possibly related to low cardiac output and perhaps hypotension. BUN elevated and creatinine slightly improved. Continue to monitor Furosemide and spironolactone on hold. Hold Entresto of systolic blood pressures less than 95 mmHg. Continue daily BMP (4) Chronic a-fib: Code(s): I48.20 - Chronic atrial fibrillation, unspecified Status: Chronic Assessment and Plan: Continue metoprolol succinate and apixaban. Monitor for bleeding. H&H stable. Has been on Eliquis; on hold now, perhaps for anticipated thoracentesis. Repeat chest x-ray pending. There is no indication to follow INR as a measure of the anticoagulant effect of Eliquis particularly as the effect of Eliquis on INR is highly variable. This should not dictate whether procedures are to be performed as a direct indication of anticoagulant effect as stated other than considerations with regards to the nature of the procedure, her age and renal insufficiency. A 48 hour hold should be adequate prior to thoracentesis. However, defer to primary service and Radiology in this regard. (5) AICD (automatic cardioverter/defibrillator) present: Code(s): Z95.810 - Presence of automatic (implantable) cardiac defibrillator Status: Acute Assessment and Plan: Stable no acute issues. (6) Confusion: Code(s): R41.0 - Disorientation, unspecified Status: Acute Assessment and Plan: Management per primary team and questionable seizure. She is on seizure precautions. Subjective Date/time seen: Date of service: 05/25/22 12:47 Interval history: Follow-up for CHF. H/O nonischemic cardiomyopathy with an EF of 20-25%, moderate MR and severe TR, persistent atrial fibrillation, ICD, stroke, diabetes, and chronic heart failure managed by managed by Dr. Kapadia at [facility]. Lives in an extended care facility. 05 20 2022-Patient was sitting up in the bed at the time of evaluation. She appeared somnolent but arousable. Denies any chest pain or shortness of breath. 05/22/22: More alert today.? Does answer some questions but is not oriented.? She denies any chest pain or shortness of breath.? Change furosemide to p.o.. 05/23/2022: Somnolent but appears comfortable. Remains on O2 at 2 L. Systolic blood pressure running low
[2022-05-25 16:24] LABS: Glucose Point of Care 139 mg/dl (65-105)
--- NOTE | 2022-05-25 16:35 | PM.IMPN ---
Progress Note: A&P Assessment and Plan (1) Acute exacerbation of CHF (congestive heart failure): Qualifiers: Heart failure type: combined systolic and diastolic Qualified Code(s): I50.43 - Acute on chronic combined systolic (congestive) and diastolic (congestive) heart failure Code(s): I50.9 - Heart failure, unspecified Status: Acute Assessment and Plan: Patient brought to the emergency room because she looked ?puffy?. EKG showed AFib with controlled rate with nonspecific ST T wave changes. Echo in December 2021 showing EF 20-25%, moderate MR, severe TR. CXR showing small pleural effusions on admission. BNP 8100 with repeat at 13K. Repeat CXR showing left pleural effusion and scattered opacities. Furosemide IV and then Spironolactone held due to BOO and HoTN. We continued Entresto. Blood pressure better and renal function improving. Cardiology following and appreciate their input. Thoracentesis ordered but held due to elevated INR. Repeat CXR today showing improving pulmonary edema and moderate left pleural effusion. Pleural effusion most likely related to CHF. Will cancel thoracentesis at this time since she does not have a oxygen requirement and feel the risk outweighs the benefit at this point. Add compression hose (2) Seizure: Code(s): R56.9 - Unspecified convulsions Status: Acute Assessment and Plan: This is questionable but if so, then new onset. Per [facility] nurse, patient not on any benzodiazepines or antiepileptic medications in the past. CT head showed no acute intracranial process but shows chronic bilateral infarcts and atrophy. Patient was NOT started on antiepileptic medications. She is chronically on gabapentin which has been continued. No MR due to that she has a ICD. Neuro consult ordered. EEG ordered. Continue seizure precautions. (3) BOO (acute kidney injury): Code(s): N17.9 - Acute kidney failure, unspecified Status: Acute Assessment and Plan: Baseline creatinine is 1.0-1.4. Creatinine elevated on admission at 2.1 that improved to 1.4 before climbing again to 2.4. No exposure to contrast. Could be related to HoTN. Dehydrated? Andrea 30 with FENa 0.3%. Nephrology following and appreciate their input. Lasix and spironolactone on hold. Cr better today. Follow. (4) Chronic a-fib: Code(s): I48.20 - Chronic atrial fibrillation, unspecified Status: Chronic Assessment and Plan: Rate controlled on mexiletine and metoprolol. Eliquis on hold currently. Continue home medications. Resume Eliquis. (5) Diabetes mellitus: Code(s): E11.9 - Type 2 diabetes mellitus without complications Status: Chronic Assessment and Plan: A1c 7.9. The patient's blood glucose was reviewed on 05/25 Glucose remains well controlled. Continue AccuCheks covering with sliding scale. Hypoglycemia protocol available as needed. Continue to monitor. (6) Hyperlipidemia: Code(s): E78.5 - Hyperlipidemia, unspecified Status: Chronic Assessment and Plan: Total creatinine kinase is normal. She has elevated bilirubin level (mostly direct) but AlkPhos, AST and ALT are normal. Continue Lipitor. (7) Hypothyroidism: Code(s): E03.9 - Hypothyroidism, unspecified Status: Acute Assessment and Plan: TSH normal. Continue home levothyroxine. (8) Thrombocytopenia: Code(s): D69.6 - Thrombocytopenia, unspecified Status: Acute Assessment and Plan: Patient with mild thrombocytopenia but stable. Continue to follow. Plan DVT prophylaxis: Eliquis Code status: Full Diet: Diabetic Subjective Date/time seen: 05/25/22 16:35 Interval history: 77yo female with cAFib, DM and CHF here for looking 'puffy' and found to have CHF exacerbation. Patient is alert but confused. She is unable to provide history. Review of Systems Review of Systems: ROS unobtainabl
[2022-05-25] MEDS: LACTULOSE 20 GM/30 ML UDC PO (16:45)
[2022-05-25] MEDS: ATORVASTATIN 40 MG TABLET PO (16:45)
[2022-05-25] MEDS: CITALOPRAM HYDROBROMIDE 20 MG TABLET PO (16:46)
[2022-05-25] MEDS: APIXABAN 5 MG TABLET PO (19:38)
[2022-05-25] MEDS: GABAPENTIN 300 MG CAPSULE PO (19:38)
[2022-05-25] MEDS: METOPROLOL SUCCINATE EXT REL 25 MG TABCR PO (19:38)
[2022-05-25] MEDS: SACUBITRIL/VALSARTAN 24-26 MG TABLET 1 TAB PO (19:39)
[2022-05-25] MEDS: PANTOPRAZOLE 40 MG TABLET PO (19:39)
[2022-05-26] VITALS (12 sets, daily range): BP systolic 90–120; BP diastolic 55–68; PULSE 70–103; RESP 17–18; TEMP 36.2–36.6; O2SAT 93–98
[2022-05-26] MEDS: MEXILETINE HCL 150 MG CAPSULE 300 MG PO ×3 (05:41→20:58)
[2022-05-26] MEDS: LEVOTHYROXINE SODIUM 25 MCG TABLET PO (05:41)
[2022-05-26 07:07] LABS: Albumin Level 3.2 g/dL (3.5-5.1); Anion Gap 13 mmol/L (8-16); Blood Urea Nitrogen 42 mg/dL (7-17); Calcium 8.1 mg/dL (8.4-10.2); Carbon Dioxide 28 mmol/L (22-30); Chloride 100 mmol/L (98-107); Estimated CRCL calculation 23 ml/min; Estimated Glomerular Filt Rate 26; Glucose 158 mg/dL (65-110); Phosphorus 3.4 mg/dL (2.5-4.5); Potassium 4.6 mmol/L (3.4-5.0); Sodium 141 mmol/L (137-145)
[2022-05-26] MEDS: METOPROLOL SUCCINATE EXT REL 25 MG TABCR PO (08:08)
[2022-05-26] MEDS: APIXABAN 5 MG TABLET PO ×2 (08:08→20:58)
[2022-05-26] MEDS: SACUBITRIL/VALSARTAN 24-26 MG TABLET 1 TAB PO (08:08)
[2022-05-26] MEDS: ATORVASTATIN 40 MG TABLET PO (08:36)
[2022-05-26] MEDS: CITALOPRAM HYDROBROMIDE 20 MG TABLET PO (08:36)
[2022-05-26 08:59] LABS: Glucose Point of Care 160 mg/dl (65-105)
--- NOTE | 2022-05-26 09:50 | PCPTNOTE ---
The patient treatment was not able to be completed due to patient lethargic and had limited response to verbal and tactile stim. Will plan to continue treatment per plan of care.
[2022-05-26 11:47] LABS: Glucose Point of Care 168 mg/dl (65-105)
--- NOTE | 2022-05-26 12:09 | PM.PNNEP ---
Progress Note: A&P Additional Plan 1. Patient most likely does have chronic kidney disease due to chronic pre renal azotemia because of her poorly functioning heart. 2. Patient has had a recent rise in her creatinine. Renal ultrasound shows Bosniak 2 cyst. UA showed hematuria and pyuria. Urine protein to creatinine ratio was only 160. Urine electrolytes show pre renal azotemia with a low fractional excretion of sodium. this may be due to pre renal azotemia from her poorly functioning heart and low blood pressure During times when her blood pressure is higher, ie around 100, her creatinine seems to improve. Consider reducing Entresto? 3. The patient has congestive cardiomyopathy with a very low cardiac output and also has tricuspid regurgitation. She has an AICD. 4. The patient has chronic low blood pressure. It ranges in the 80-110 range. 5. Status post CVA. No new symptoms. 6. The patient has chronic low blood pressure. This is most likely due to her heart. TSH is normal. Cortisol stim is normal Subjective Date/time seen: 05/26/22 12:09 Interval history: Somewhat sleepy today. No shortness of breath. Exam Narrative: WDWN in NAD skin no rash head ncat lungs Decreased breath sounds at the bases cor reg no rub abd BS+ nontender and soft ext 2+ edema. Objective Data Vital Signs Vital Signs: Vital Signs - 24 hr 05/25/22 12:57 05/25/22 14:00 05/25/22 16:46 Temperature 36.2 C L 36.2 C L Pulse Rate 90 104 H 84 Respiratory Rate 18 20 Blood Pressure 102/62 102/72 Pulse Oximetry 95 94 Oxygen Delivery 05/25/22 19:37 05/25/22 19:38 05/26/22 05:41 Temperature Pulse Rate 87 83 75 Respiratory Rate Blood Pressure Pulse Oximetry Oxygen Delivery 05/25/22 22:20 05/26/22 06:22 05/26/22 08:08 Temperature Pulse Rate 87 70 81 Respiratory Rate Blood Pressure 110/60 100/55 L Pulse Oximetry 98 Oxygen Delivery 05/26/22 08:00 Temperature Pulse Rate Respiratory Rate Blood Pressure Pulse Oximetry 93 Oxygen Delivery Room Air Intake/Output Intake/Output: Intake & Output 05/23/22 05/24/22 05/25/22 05/26/22 23:59 23:59 23:59 23:59 Intake Total 860 1040 100 500 Output Total 250 350 450 250 Balance 610 690 -350 250 Meds/Results Medications: Active Medications Generic Name Dose Route Start Last Admin Trade Name Freq PRN Reason Stop Dose Admin Al Hydrox/Mg Hydrox/Simethicone 30 ml 05/16/22 09:34 Mag Hydrox/Al Hydrox/Simeth 30 Ml Udc PO QID PRN Dyspepsia Apixaban 5 mg 05/16/22 21:00 05/26/22 08:08 Apixaban 5 Mg Tablet PO 5 mg Q12HR [place] Administration Atorvastatin Calcium 40 mg 05/16/22 09:00 05/26/22 08:36 Atorvastatin 40 Mg Tablet PO 40 mg DAILY [place] Administration Bisacodyl 10 mg 05/16/22 09:34 Bisacodyl 10 Mg Suppository RECTAL DAILY PRN Constipation Bisacodyl 5 mg 05/16/22 09:34 Bisacodyl 5 Mg Tablet Ec PO BID PRN Constipation Citalopram Hydrobromide 20 mg 05/16/22 09:00 05/26/22 08:36 Citalopram Hydrobromide 20 Mg Tablet PO 20 mg DAILY [place] Administration Dextrose 12.5 gm 05/15/22 21:35 Dextrose 50% 25 Gm/50 Ml Syringe IV PUSH PRN PRN Hypoglycemia Protocol Furosemide 40 mg 05/22/22 17:00 05/23/22 08:21 Furosemide 40 Mg Tablet PO Not Given BID [place] Gabapentin 300 mg 05/16/22 21:00 05/25/22 19:38 Gabapentin 300 Mg Capsule PO 06/15/22 20:59 300 mg HS [place] Administration Glucagon 1 mg 05/15/22 21:35 Glucagon For Inj 1 Mg Vial IM PRN PRN Hypoglycemia Protocol Glucose 15 gm 05/15/22 21:35 Glucose Oral Gel 15 Gm Of Glucse In 37.5 Gm Tube PO PRN PRN Hypoglycemia Protocol Dextrose 1,000 mls @ 100 mls/hr 05/15/22 21:35 Dextrose 5% 1,000 Ml IVPB PRN PRN Hypoglycemia Protocol Insulin Aspart 2 - 5 units 05/16/22 08:00 05/26/22 11:51
[2022-05-26] MEDS: LACTULOSE 20 GM/30 ML UDC PO ×2 (14:01→17:15)
--- NOTE | 2022-05-26 14:21 | PM.IMPN ---
Progress Note: A&P Assessment and Plan (1) Acute exacerbation of CHF (congestive heart failure): Qualifiers: Heart failure type: combined systolic and diastolic Qualified Code(s): I50.43 - Acute on chronic combined systolic (congestive) and diastolic (congestive) heart failure Code(s): I50.9 - Heart failure, unspecified Status: Acute Assessment and Plan: Patient brought to the emergency room because she looked ?puffy?. EKG showed AFib with controlled rate with nonspecific ST T wave changes. Echo in December 2021 showing EF 20-25%, moderate MR, severe TR. CXR showing small pleural effusions on admission. She was started on IV Lasix. BNP 8100 with repeat at 13K. Repeat CXR showing left pleural effusion and scattered opacities. Furosemide IV and then Spironolactone held due to BOO and HoTN. We continued Entresto. Blood pressure better and renal function improving. Cardiology and Nephrology following and appreciate their input. Thoracentesis ordered but held due to elevated INR. Repeat CXR 05/25 showing improving pulmonary edema and moderate left pleural effusion. Pleural effusion most likely related to CHF. Thoracentesis canceled at this time since she does not have a oxygen requirement and feel the risk outweighs the benefit at this point. Add compression hose. Consider resuming lasix if BP and renal function continue to improve. (2) Seizure: Code(s): R56.9 - Unspecified convulsions Status: Acute Assessment and Plan: This is questionable but if so, then new onset. Per custodial nurse, patient has not been on any benzodiazepines or antiepileptic medications in the past. CT head showed no acute intracranial process but shows chronic bilateral infarcts and atrophy. Patient was NOT started on antiepileptic medications. She is chronically on gabapentin which was continued. No MR due to that she has a ICD. Neuro consult ordered. EEG ordered. Continue seizure precautions. (3) BOO (acute kidney injury): Code(s): N17.9 - Acute kidney failure, unspecified Status: Acute Assessment and Plan: Baseline creatinine is 1.0-1.4. Creatinine elevated on admission at 2.1 that improved to 1.4 before climbing again to 2.4. No exposure to contrast. Could be related to HoTN. Dehydrated? Andrea 28 with FENa 0.3%. Nephrology following and appreciate their input. Lasix and spironolactone held. Cr better today at 1.9. Follow. (4) Chronic a-fib: Code(s): I48.20 - Chronic atrial fibrillation, unspecified Status: Chronic Assessment and Plan: Rate controlled on mexiletine and metoprolol. Eliquis resumed. Continue home medications. (5) Diabetes mellitus: Code(s): E11.9 - Type 2 diabetes mellitus without complications Status: Chronic Assessment and Plan: A1c 7.9. The patient's blood glucose was reviewed on 05/26 Glucose remains well controlled. Continue AccuCheks covering with sliding scale. Hypoglycemia protocol available as needed. Continue to monitor. (6) Hyperlipidemia: Code(s): E78.5 - Hyperlipidemia, unspecified Status: Chronic Assessment and Plan: Total creatinine kinase is normal. She has elevated bilirubin level (mostly direct) but AlkPhos, AST and ALT are normal. Continue Lipitor. (7) Hypothyroidism: Code(s): E03.9 - Hypothyroidism, unspecified Status: Acute Assessment and Plan: TSH normal. Continue home levothyroxine. (8) Thrombocytopenia: Code(s): D69.6 - Thrombocytopenia, unspecified Status: Acute Assessment and Plan: Patient with mild thrombocytopenia but stable. Continue to follow. Plan DVT prophylaxis: Eliquis Code status: Full Diet: Diabetic Subjective Date/time seen: 05/26/22 14:21 Interval history: 77yo female with cAFib, DM and CHF here for looking 'puffy' and found to have CHF exacerbation. Patient is sleeping but arouses eas
[2022-05-26 16:38] LABS: Glucose Point of Care 148 mg/dl (65-105)
[2022-05-26 20:57] LABS: Glucose Point of Care 210 mg/dl (65-105)
[2022-05-26] MEDS: PANTOPRAZOLE 40 MG TABLET PO (20:58)
[2022-05-26] MEDS: GABAPENTIN 300 MG CAPSULE PO (20:58)
--- NOTE | 2022-05-26 23:06 | PC.NURSE ---
pt. was found with IV access out and lying in the bed at 20:30. pt was unsuccessfully stuck 4 times by two nurses. pt has no IV medications scheduled, only IV hypoglycemia protocols. charge nurse notified
[2022-05-27] VITALS (8 sets, daily range): BP systolic 80–106; BP diastolic 60–70; PULSE 77–85; RESP 16–18; TEMP 36.2–36.6; O2SAT 94–98
[2022-05-27] MEDS: LEVOTHYROXINE SODIUM 25 MCG TABLET PO (05:56)
[2022-05-27] MEDS: MEXILETINE HCL 150 MG CAPSULE 300 MG PO ×3 (05:56→19:58)
[2022-05-27 06:59] LABS: Basophils Percent Auto 0.5 % (0.2-1.2); Eosinophils Absolute Auto 0.1 K/mm3 (0-0.3); Eosinophils Percent Auto 2.4 % (0-4.4); Hematocrit 39.9 % (37.0-47.0); Immature Granulocyte Absolute 0.02 K/mm3 (0.00-0.031); Immature Granulocyte Percent A 0.4 % (0-0.5); Lymphocytes Absolute Auto 0.82 K/mm3 (0.9-3.2); Mean Corpuscular HGB Conc 30.1 g/dl (32-36); Mean Corpuscular Hemoglobin 26.7 pg (26-34); Mean Corpuscular Volume 88.7 fl (80-100); Mean Platelet Volume 11.6 fl (7.4-10.4); Monocytes Absolute Auto 0.5 K/mm3 (0.1-0.6); Monocytes Percent Auto 9.9 % (2.6-8.5); Neutrophils Absolute Auto 3.9 K/mm3 (1.3-6.7); Neutrophils Percent Auto 71.8 % (45.5-73.1); Platelet Count Result 162 k/mm3 (150-375); White Blood Count 5.5 K/mm3 (4.5-10.0)
[2022-05-27 07:15] LABS: Alanine Aminotransferase 9 U/L (6-35); Albumin Level 3.1 g/dL (3.5-5.1); Alkaline Phosphatase 101 U/L (38-126); Anion Gap 11 mmol/L (8-16); Aspartate Amino Transferase 19 U/L (14-36); Bilirubin,Total 2.1 mg/dL (0.2-1.3); Blood Urea Nitrogen 41 mg/dL (7-17); Calcium 8.1 mg/dL (8.4-10.2); Carbon Dioxide 30 mmol/L (22-30); Chloride 100 mmol/L (98-107); Estimated CRCL calculation 27 ml/min; Estimated Glomerular Filt Rate 29; Glucose 157 mg/dL (65-110); Magnesium 2.2 mg/dL (1.6-2.3); Potassium 4.1 mmol/L (3.4-5.0); Sodium 141 mmol/L (137-145)
[2022-05-27 07:55] LABS: Glucose Point of Care 177 mg/dl (65-105)
[2022-05-27] MEDS: CITALOPRAM HYDROBROMIDE 20 MG TABLET PO (09:20)
[2022-05-27] MEDS: ATORVASTATIN 40 MG TABLET PO (09:20)
[2022-05-27] MEDS: METOPROLOL SUCCINATE EXT REL 25 MG TABCR PO (09:20)
[2022-05-27] MEDS: LACTULOSE 20 GM/30 ML UDC PO ×2 (09:20→13:04)
[2022-05-27] MEDS: APIXABAN 5 MG TABLET PO ×2 (09:20→19:58)
[2022-05-27] MEDS: SACUBITRIL/VALSARTAN 24-26 MG TABLET 1 TAB PO (09:21)
--- NOTE | 2022-05-27 11:21 | PCNFU ---
Nutrition Follow-Up Complete: Inadequate energy intake related to reduced appetite as evidenced by charted intake Goal:PO intake 50% or greater most meals. Pt current nutrition is diabetic consistent carb. Nutrition recommendation: Add Glucerna BID for an additional 220kcals, 10g protein per shake Last recorded weight is 83.7 kg - up from 79.7kg on admission. Bowel Motility: +BM 05/24 Labs Reviewed: Alb:3.1, BUN:41, Cr:1.7, glu: 177 Meds Noted: Eliquis, dulcolax, lasix, novolog, protonix Skin: WNL Additional Notes: Pt diet restarted as diabetic consistent carb. Intake remains inadequate at 25% of meals. Will start glucerna BID to help increase caloric intake. Monitor for diet, intake, wt, labs. Follow up in 5 days.
[2022-05-27 12:20] LABS: Glucose Point of Care 190 mg/dl (65-105)
--- NOTE | 2022-05-27 14:19 | PM.IMPN ---
Progress Note: A&P Assessment and Plan (1) Acute exacerbation of CHF (congestive heart failure): Qualifiers: Heart failure type: combined systolic and diastolic Qualified Code(s): I50.43 - Acute on chronic combined systolic (congestive) and diastolic (congestive) heart failure Code(s): I50.9 - Heart failure, unspecified Status: Acute Assessment and Plan: Patient brought to the emergency room because she looked ?puffy?. EKG showed AFib with controlled rate with nonspecific ST T wave changes. Echo in December 2021 showing EF 20-25%, moderate MR, severe TR. CXR showing small pleural effusions on admission. She was started on IV Lasix. BNP 8100 with repeat at 13K. Repeat CXR showing left pleural effusion and scattered opacities. Furosemide IV and then Spironolactone held due to BOO and HoTN. We continued Entresto. Blood pressure better and renal function improving. BP did drop with her being up. Cardiology and Nephrology following and appreciate their input. Thoracentesis ordered but held due to elevated INR. Repeat CXR 05/25 showing improving pulmonary edema and moderate left pleural effusion. Pleural effusion most likely related to CHF. Thoracentesis canceled at this time since she does not have a oxygen requirement and feel the risk outweighs the benefit at this point. Add compression hose. Add midodrine. Resume diuretics if BP improves. Spoke with daughter and she was updated with hospital course and plan. We discussed options including Hospice. She requested information about hospice. Care coordination consulted ordered (2) Seizure: Code(s): R56.9 - Unspecified convulsions Status: Acute Assessment and Plan: This is questionable but if so, then new onset. Per [facility] nurse, patient has not been on any benzodiazepines or antiepileptic medications in the past. CT head showed no acute intracranial process but shows chronic bilateral infarcts and atrophy. Patient was NOT started on antiepileptic medications. She is chronically on gabapentin which was continued. No MR due to that she has a ICD. Neuro consult ordered. EEG ordered. Continue seizure precautions. (3) BOO (acute kidney injury): Code(s): N17.9 - Acute kidney failure, unspecified Status: Acute Assessment and Plan: Baseline creatinine is 1.0-1.4. Creatinine elevated on admission at 2.1 that improved initially before climbing again to 2.4. No exposure to contrast. Could be related to HoTN. Dehydrated? Andrea 30 with FENa 0.3%. Nephrology following and appreciate their input. Lasix and spironolactone held. Cr better today at 1.7. Follow. (4) Chronic a-fib: Code(s): I48.20 - Chronic atrial fibrillation, unspecified Status: Chronic Assessment and Plan: Rate controlled on mexiletine and metoprolol. Eliquis resumed. Continue current medications. (5) Diabetes mellitus: Code(s): E11.9 - Type 2 diabetes mellitus without complications Status: Chronic Assessment and Plan: A1c 7.9. The patient's blood glucose was reviewed on 05/27 Glucose remains well controlled. Continue AccuCheks covering with sliding scale. Hypoglycemia protocol available as needed. Continue to monitor. (6) Hyperlipidemia: Code(s): E78.5 - Hyperlipidemia, unspecified Status: Chronic Assessment and Plan: Total creatinine kinase is normal. She has elevated bilirubin level but AlkPhos, AST and ALT are normal. BBili mostly direct but still suspect Gilbert. Continue Lipitor. (7) Hypothyroidism: Code(s): E03.9 - Hypothyroidism, unspecified Status: Acute Assessment and Plan: TSH normal. Continue home levothyroxine. (8) Thrombocytopenia: Code(s): D69.6 - Thrombocytopenia, unspecified Status: Acute Assessment and Plan: Patient with mild thrombocytopenia at times but stable. Continue to follow. Plan DVT prophylaxis: Alejandro Lanza
--- NOTE | 2022-05-27 14:56 | PM.PNCARD ---
Progress Note: A&P Assessment and Plan (1) Acute exacerbation of CHF (congestive heart failure): Qualifiers: Heart failure type: combined systolic and diastolic Qualified Code(s): I50.43 - Acute on chronic combined systolic (congestive) and diastolic (congestive) heart failure Code(s): I50.9 - Heart failure, unspecified Status: Acute Assessment and Plan: Patient with CHF with severely reduced ejection fraction with history of ? nonischemic cardiomyopathy. Home meds include metoprolol succinate, sacubitril / valsartan. furosemide 40 mg b.i.d. and spironolactone on hold due to BOO and hypotension. Monitor BP, not documented from this morning. Had initially reduced Entresto but will increase as BP permits. Renal function improved, resume diuretic therapy. Will continue Entresto. Given him in hypotension may add midodrine 2.5 mg 1st thing morning and mid day to help support BP and tolerate more optimal medical therapy. Discussed with hospitalist service. (2) Cardiomyopathy: Qualifiers: Cardiomyopathy type: unspecified Qualified Code(s): I42.9 - Cardiomyopathy, unspecified Code(s): I42.9 - Cardiomyopathy, unspecified Status: Chronic Assessment and Plan: Severe LV systolic dysfunction EF 20-25% by echocardiogram December 2021. She has a history of moderate MR and severe TR with mild pulmonary hypertension. Medical management as described above. (3) BOO (acute kidney injury): Code(s): N17.9 - Acute kidney failure, unspecified Status: Acute Assessment and Plan: Acute renal insufficiency possibly related to low cardiac output and perhaps hypotension. BUN elevated and creatinine slightly improved. Continue to monitor Furosemide and spironolactone on hold planned resume in a.m.. Hold Entresto of systolic blood pressures less than 95 mmHg. Add midodrine as above for support of BP. Continue daily BMP (4) Chronic a-fib: Code(s): I48.20 - Chronic atrial fibrillation, unspecified Status: Chronic Assessment and Plan: Continue metoprolol succinate and apixaban. Monitor for bleeding. H&H stable. Has been on Eliquis; on hold now, perhaps for anticipated thoracentesis. Repeat chest x-ray pending. There is no indication to follow INR as a measure of the anticoagulant effect of Eliquis particularly as the effect of Eliquis on INR is highly variable. This should not dictate whether procedures are to be performed as a direct indication of anticoagulant effect as stated other than considerations with regards to the nature of the procedure, her age and renal insufficiency. A 48 hour hold should be adequate prior to thoracentesis. However, defer to primary service and Radiology in this regard. (5) AICD (automatic cardioverter/defibrillator) present: Code(s): Z95.810 - Presence of automatic (implantable) cardiac defibrillator Status: Acute Assessment and Plan: Stable no acute issues. (6) Confusion: Code(s): R41.0 - Disorientation, unspecified Status: Acute Assessment and Plan: Management per primary team and questionable seizure. She is on seizure precautions. Subjective Date/time seen: 05/27/22 14:56 Interval history: Follow-up for CHF. H/O nonischemic cardiomyopathy with an EF of 20-25%, moderate MR and severe TR, persistent atrial fibrillation, ICD, stroke, diabetes, and chronic heart failure managed by managed by Dr. Kapadia at [facility]. Lives in an extended care facility. 05 20 2022-Patient was sitting up in the bed at the time of evaluation. She appeared somnolent but arousable. Denies any chest pain or shortness of breath. 05/22/22: More alert today.? Does answer some questions but is not oriented.? She denies any chest pain or shortness of breath.? Change furosemide to p.o.. 05/23/2022: Somnolent but appears comfortable. Remains on O2 at 2 L. S
[2022-05-27] MEDS: MIDODRINE HCL 2.5 MG TABLET PO ×2 (15:01→17:29)
--- NOTE | 2022-05-27 15:42 | PM.PNNEP ---
Progress Note: A&P Additional Plan 1. Patient most likely does have chronic kidney disease due to chronic pre renal azotemia because of her poorly functioning heart. 2. Patient has had a recent rise in her creatinine. Renal ultrasound shows Bosniak 2 cyst. UA showed hematuria and pyuria. Urine protein to creatinine ratio was only 160. Urine electrolytes show pre renal azotemia with a low fractional excretion of sodium. this may be due to pre renal azotemia from her poorly functioning heart and low blood pressure Entresto was reduced. Will try single dose of diuretics and see how she does. 3. The patient has congestive cardiomyopathy with a very low cardiac output and also has tricuspid regurgitation. She has an AICD. 4. The patient has chronic low blood pressure. It ranges in the 80-110 range.TSH is normal. Cortisol stim is normal 5. Status post CVA. No new symptoms. Subjective Date/time seen: 05/27/22 15:42 Interval history: Somewhat sleepy today. eating some lunch. No shortness of breath. Exam Narrative: WDWN in NAD skin no rash head ncat lungs Decreased breath sounds at the bases cor reg no rub abd BS+ nontender and soft ext 2+ edema. Objective Data Vital Signs Vital Signs: Vital Signs - 24 hr 05/26/22 17:15 05/26/22 20:53 05/26/22 20:57 Temperature Pulse Rate 84 103 H 103 H Respiratory Rate Blood Pressure 90/56 L Pulse Oximetry 96 Oxygen Delivery 05/26/22 20:58 05/26/22 20:00 05/26/22 21:45 Temperature 36.6 C Pulse Rate 103 H 88 Respiratory Rate 18 Blood Pressure 90/56 L Pulse Oximetry 98 Oxygen Delivery Room Air 05/26/22 22:35 05/27/22 05:56 05/27/22 05:59 Temperature 36.6 C Pulse Rate 79 85 Respiratory Rate 18 Blood Pressure 94/62 L 106/60 Pulse Oximetry 98 Oxygen Delivery 05/27/22 10:00 05/27/22 10:20 05/27/22 13:23 Temperature 36.6 C Pulse Rate 77 Respiratory Rate 16 Blood Pressure 86/62 L 80/62 L 100/70 Pulse Oximetry 94 Oxygen Delivery Intake/Output Intake/Output: Intake & Output 05/24/22 05/25/22 05/26/22 05/27/22 23:59 23:59 23:59 23:59 Intake Total 1040 100 660 Output Total 350 450 450 200 Balance 690 -350 210 -200 Meds/Results Medications: Active Medications Generic Name Dose Route Start Last Admin Trade Name Orenq PRN Reason Stop Dose Admin Al Hydrox/Mg Hydrox/Simethicone 30 ml 05/16/22 09:34 Mag Hydrox/Al Hydrox/Simeth 30 Ml Udc PO QID PRN Dyspepsia Apixaban 5 mg 05/16/22 21:00 05/27/22 09:20 Apixaban 5 Mg Tablet PO 5 mg Q12HR [place] Administration Atorvastatin Calcium 40 mg 05/16/22 09:00 05/27/22 09:20 Atorvastatin 40 Mg Tablet PO 40 mg DAILY [place] Administration Bisacodyl 10 mg 05/16/22 09:34 Bisacodyl 10 Mg Suppository RECTAL DAILY PRN Constipation Bisacodyl 5 mg 05/16/22 09:34 Bisacodyl 5 Mg Tablet Ec PO BID PRN Constipation Citalopram Hydrobromide 20 mg 05/16/22 09:00 05/27/22 09:20 Citalopram Hydrobromide 20 Mg Tablet PO 20 mg DAILY [place] Administration Dextrose 12.5 gm 05/15/22 21:35 Dextrose 50% 25 Gm/50 Ml Syringe IV PUSH PRN PRN Hypoglycemia Protocol Furosemide 40 mg 05/22/22 17:00 05/23/22 08:21 Furosemide 40 Mg Tablet PO Not Given BID [place] Gabapentin 300 mg 05/16/22 21:00 05/26/22 20:58 Gabapentin 300 Mg Capsule PO 06/15/22 20:59 300 mg HS [place] Administration Glucagon 1 mg 05/15/22 21:35 Glucagon For Inj 1 Mg Vial IM PRN PRN Hypoglycemia Protocol Glucose 15 gm 05/15/22 21:35 Glucose Oral Gel 15 Gm Of Glucse In 37.5 Gm Tube PO PRN PRN Hypoglycemia Protocol Dextrose 1,000 mls @ 100 mls/hr 05/15/22 21:35 Dextrose 5% 1,000 Ml IVPB PRN PRN Hypoglycemia Protocol Insulin Aspart 2 - 5 units 05/16/22 08:00 05/27/22 12:53 Insulin Aspart (*Bkc) 100 Units/Ml SUB-
[2022-05-27 16:50] LABS: Glucose Point of Care 212 mg/dl (65-105)
[2022-05-27] MEDS: BUMETANIDE 1 MG TABLET PO (17:28)
[2022-05-27] MEDS: INSULIN ASPART (*BKC) 100 UNITS/ML SUB-Q (17:28)
[2022-05-27] MEDS: GABAPENTIN 300 MG CAPSULE PO (19:58)
[2022-05-27] MEDS: SACUBITRIL/VALSARTAN 12-13 MG TABLET 1 TAB PO (19:58)
[2022-05-27] MEDS: PANTOPRAZOLE 40 MG TABLET PO (19:58)
[2022-05-28] VITALS (12 sets, daily range): BP systolic 84–100; BP diastolic 60–78; PULSE 66–97; RESP 16–18; TEMP 36.2–36.7; O2SAT 93–96
[2022-05-28] MEDS: MEXILETINE HCL 150 MG CAPSULE 300 MG PO ×3 (05:53→20:59)
[2022-05-28] MEDS: LEVOTHYROXINE SODIUM 25 MCG TABLET PO (05:53)
[2022-05-28 08:09] LABS: Anion Gap 10 mmol/L (8-16); Blood Urea Nitrogen 39 mg/dL (7-17); Carbon Dioxide 29 mmol/L (22-30); Chloride 101 mmol/L (98-107); Estimated CRCL calculation 30 ml/min; Estimated Glomerular Filt Rate 34; Glucose 163 mg/dL (65-110); Phosphorus 2.6 mg/dL (2.5-4.5); Potassium 4.5 mmol/L (3.4-5.0); Sodium 140 mmol/L (137-145)
[2022-05-28 08:24] LABS: Glucose Point of Care 171 mg/dl (65-105)
[2022-05-28] MEDS: CITALOPRAM HYDROBROMIDE 20 MG TABLET PO (09:36)
[2022-05-28] MEDS: APIXABAN 5 MG TABLET PO ×2 (09:36→21:00)
[2022-05-28] MEDS: MIDODRINE HCL 2.5 MG TABLET PO (09:36)
[2022-05-28] MEDS: ATORVASTATIN 40 MG TABLET PO (09:36)
[2022-05-28] MEDS: LACTULOSE 20 GM/30 ML UDC PO ×3 (09:36→17:56)
[2022-05-28] MEDS: SACUBITRIL/VALSARTAN 12-13 MG TABLET 1 TAB PO ×2 (09:36→21:00)
[2022-05-28 12:07] LABS: Glucose Point of Care 200 mg/dl (65-105)
--- NOTE | 2022-05-28 12:43 | PM.PNNEP ---
Progress Note: A&P Additional Plan 1. Patient most likely does have chronic kidney disease due to chronic pre renal azotemia because of her poorly functioning heart. 2. Patient has had a recent rise in her creatinine. Renal ultrasound shows Bosniak 2 cyst. UA showed hematuria and pyuria. Urine protein to creatinine ratio was only 160. Urine electrolytes show pre renal azotemia with a low fractional excretion of sodium. this may be due to pre renal azotemia from her poorly functioning heart and low blood pressure Entresto is now at a lower dose. Yesterday she received a single dose of Bumex. Her creatinine is same. Will increase the diuretics. 3. The patient has congestive cardiomyopathy with a very low cardiac output and also has tricuspid regurgitation. She has an AICD. 4. The patient has chronic low blood pressure. It ranges in the 80-110 range.TSH is normal. Cortisol stim is normal 5. Status post CVA. No new symptoms. Subjective Date/time seen: 05/28/22 12:43 Interval history: Patient is a little more awake today. Still not eating very much. No shortness of breath. Exam Narrative: WDWN in NAD skin no rash or subcu nodules head ncat lungs Decreased breath sounds at the bases cor reg no rub abd BS+ nontender and soft ext 2+ edema bilaterally. Objective Data Vital Signs Vital Signs: Vital Signs - 24 hr 05/27/22 13:23 05/27/22 19:58 05/27/22 20:02 Temperature 36.6 C Pulse Rate 77 85 85 Respiratory Rate 16 Blood Pressure 100/70 Pulse Oximetry 94 05/27/22 22:00 05/28/22 05:53 05/28/22 06:00 Temperature 36.2 C L 36.4 C Pulse Rate 81 85 84 Respiratory Rate 16 18 Blood Pressure 93/60 L 96/60 L Pulse Oximetry 95 93 05/28/22 08:00 05/28/22 12:13 05/28/22 12:30 Temperature 36.7 C 36.2 C L Pulse Rate 77 68 Respiratory Rate 16 16 Blood Pressure 90/72 L 84/60 L 100/78 Pulse Oximetry 95 95 05/28/22 12:35 Temperature Pulse Rate Respiratory Rate Blood Pressure 96/62 L Pulse Oximetry Intake/Output Intake/Output: Intake & Output 05/25/22 05/26/22 05/27/22 05/28/22 23:59 23:59 23:59 23:59 Intake Total 100 660 480 240 Output Total 450 450 450 250 Balance -350 210 30 -10 Meds/Results Medications: Active Medications Generic Name Dose Route Start Last Admin Trade Name Freq PRN Reason Stop Dose Admin Al Hydrox/Mg Hydrox/Simethicone 30 ml 05/16/22 09:34 Mag Hydrox/Al Hydrox/Simeth 30 Ml Udc PO QID PRN Dyspepsia Apixaban 5 mg 05/16/22 21:00 05/28/22 09:36 Apixaban 5 Mg Tablet PO 5 mg Q12HR [place] Administration Atorvastatin Calcium 40 mg 05/16/22 09:00 05/28/22 09:36 Atorvastatin 40 Mg Tablet PO 40 mg DAILY [place] Administration Bisacodyl 10 mg 05/16/22 09:34 Bisacodyl 10 Mg Suppository RECTAL DAILY PRN Constipation Bisacodyl 5 mg 05/16/22 09:34 Bisacodyl 5 Mg Tablet Ec PO BID PRN Constipation Citalopram Hydrobromide 20 mg 05/16/22 09:00 05/28/22 09:36 Citalopram Hydrobromide 20 Mg Tablet PO 20 mg DAILY [place] Administration Dextrose 12.5 gm 05/15/22 21:35 Dextrose 50% 25 Gm/50 Ml Syringe IV PUSH PRN PRN Hypoglycemia Protocol Furosemide 40 mg 05/22/22 17:00 05/23/22 08:21 Furosemide 40 Mg Tablet PO Not Given BID [place] Gabapentin 300 mg 05/16/22 21:00 05/27/22 19:58 Gabapentin 300 Mg Capsule PO 06/15/22 20:59 300 mg HS [place] Administration Glucagon 1 mg 05/15/22 21:35 Glucagon For Inj 1 Mg Vial IM PRN PRN Hypoglycemia Protocol Glucose 15 gm 05/15/22 21:35 Glucose Oral Gel 15 Gm Of Glucse In 37.5 Gm Tube PO PRN PRN Hypoglycemia Protocol Dextrose 1,000 mls @ 100 mls/hr 05/15/22 21:35 Dextrose 5% 1,000 Ml IVPB PRN PRN Hypoglycemia Protocol Insulin Aspart 2 - 5 units 05/16/22 08:00 05/28/22 12:20 Insulin Aspart (*Bkc) 100 Units/Ml SUB-Q Not
--- NOTE | 2022-05-28 12:57 | PM.IMPN ---
Progress Note: A&P Assessment and Plan (1) Acute exacerbation of CHF (congestive heart failure): Qualifiers: Heart failure type: combined systolic and diastolic Qualified Code(s): I50.43 - Acute on chronic combined systolic (congestive) and diastolic (congestive) heart failure Code(s): I50.9 - Heart failure, unspecified Status: Acute Assessment and Plan: Patient brought to the emergency room because she looked ?puffy?. EKG showed AFib with controlled rate with nonspecific ST T wave changes. Echo in December 2021 showing EF 20-25%, moderate MR, severe TR. CXR showing small pleural effusions on admission. She was started on IV Lasix. BNP was 8100 with repeat at 13K. Repeat CXR showing left pleural effusion and scattered opacities. Furosemide IV and then Spironolactone held due to BOO and HoTN. We continued Entresto but dose cut back. Renal function improving. Cardiology and Nephrology following and appreciate their input. Thoracentesis ordered but held due to elevated INR. Repeat CXR 05/25 showing improving pulmonary edema and moderate left pleural effusion. Pleural effusion most likely related to CHF. Thoracentesis canceled at this time since she does not have a oxygen requirement and feel the risk outweighs the benefit at this point. Bumex given once yesterday. BP still drops at times despite Midodrine. Continue PT/OT as tolerated. Continue compression hose. Will advance midodrine. Bumex started today. Family to be provided information about Hospice. (2) Seizure: Code(s): R56.9 - Unspecified convulsions Status: Acute Assessment and Plan: This is questionable but if so, then new onset. Per senior living nurse, patient has not been on any benzodiazepines or antiepileptic medications in the past. CT head showed no acute intracranial process but shows chronic bilateral infarcts and atrophy. Patient was NOT started on antiepileptic medications. She is chronically on gabapentin which was continued. No MR due to that she has a ICD. Neuro consult ordered. EEG completed but result pending. Continue seizure precautions. (3) BOO (acute kidney injury): Code(s): N17.9 - Acute kidney failure, unspecified Status: Acute Assessment and Plan: Baseline creatinine is 1.0-1.4. Creatinine elevated on admission at 2.1 that improved initially before climbing again to 2.4. No exposure to contrast. Could be related to HoTN. Dehydrated? Andrea 28 with FENa 0.3%. Nephrology following and appreciate their input. Lasix and spironolactone held. Bumex given yesterday. Cr better today at 1.5 despite the Bumex. Follow. (4) Chronic a-fib: Code(s): I48.20 - Chronic atrial fibrillation, unspecified Status: Chronic Assessment and Plan: Rate controlled on mexiletine and metoprolol. Eliquis resumed. Continue current medications. (5) Diabetes mellitus: Code(s): E11.9 - Type 2 diabetes mellitus without complications Status: Chronic Assessment and Plan: A1c 7.9. The patient's blood glucose was reviewed on 05/28 Glucose remains reasonably well controlled. Continue AccuCheks covering with sliding scale. Hypoglycemia protocol available as needed. Continue to monitor. (6) Hyperlipidemia: Code(s): E78.5 - Hyperlipidemia, unspecified Status: Chronic Assessment and Plan: Total creatinine kinase is normal. She has elevated bilirubin level but AlkPhos, AST and ALT are normal. Bili mostly direct but still suspect Gilbert. Continue Lipitor. (7) Hypothyroidism: Code(s): E03.9 - Hypothyroidism, unspecified Status: Acute Assessment and Plan: TSH normal. Continue home levothyroxine. (8) Thrombocytopenia: Code(s): D69.6 - Thrombocytopenia, unspecified Status: Acute Assessment and Plan: Patient with mild thrombocytopenia at times but stable. Continue to follow periodically. Plan DVT prophylaxis: E
[2022-05-28] MEDS: BUMETANIDE INJ 1 MG/4 ML VIAL IV PUSH ×2 (14:20→18:34)
--- NOTE | 2022-05-28 15:49 | PM.PNCARD ---
Progress Note: A&P Assessment and Plan (1) Acute exacerbation of CHF (congestive heart failure): Qualifiers: Heart failure type: combined systolic and diastolic Qualified Code(s): I50.43 - Acute on chronic combined systolic (congestive) and diastolic (congestive) heart failure Code(s): I50.9 - Heart failure, unspecified Status: Acute Assessment and Plan: Patient with CHF with severely reduced ejection fraction with history of ? nonischemic cardiomyopathy. Home meds include metoprolol succinate, sacubitril / valsartan. furosemide 40 mg b.i.d. and spironolactone on hold due to BOO and hypotension. Monitor BP, not documented from this morning. Had initially reduced Entresto but will increase as BP permits. Renal function improved, IV Bumex per Nephrology. Will continue Entresto. Continue midodrine increase to 5 mg t.i.d. to help support BP and tolerate more optimal medical therapy. Limited options overall given clinical picture and underlying dementia. She is not a good surgical candidate in general even if warranted for valvular heart disease. (2) Cardiomyopathy: Qualifiers: Cardiomyopathy type: unspecified Qualified Code(s): I42.9 - Cardiomyopathy, unspecified Code(s): I42.9 - Cardiomyopathy, unspecified Status: Chronic Assessment and Plan: Severe LV systolic dysfunction EF 20-25% by echocardiogram December 2021. Not able to tolerate optimal medical therapy due to hypotension. She has a history of moderate MR and severe TR with mild pulmonary hypertension. Medical management as described above. (3) BOO (acute kidney injury): Code(s): N17.9 - Acute kidney failure, unspecified Status: Acute Assessment and Plan: Acute renal insufficiency possibly related to low cardiac output and perhaps hypotension. BUN elevated and creatinine slightly improved. Continue to monitor Furosemide and spironolactone on hold planned resume in a.m.. Hold Entresto of systolic blood pressures less than 95 mmHg. Add midodrine as above for support of BP. Continue daily BMP (4) Chronic a-fib: Code(s): I48.20 - Chronic atrial fibrillation, unspecified Status: Chronic Assessment and Plan: Continue metoprolol succinate and apixaban. Monitor for bleeding. H&H stable. Eliquis 5 mg b.i.d.. Monitor For bleeding. (5) AICD (automatic cardioverter/defibrillator) present: Code(s): Z95.810 - Presence of automatic (implantable) cardiac defibrillator Status: Acute Assessment and Plan: Stable no acute issues. (6) Confusion: Code(s): R41.0 - Disorientation, unspecified Status: Acute Assessment and Plan: Management per primary team and questionable seizure. She is on seizure precautions. Subjective Date/time seen: Date of service: 05/28/22 15:49 Interval history: Follow-up for CHF. H/O nonischemic cardiomyopathy with an EF of 20-25%, moderate MR and severe TR, persistent atrial fibrillation, ICD, stroke, diabetes, and chronic heart failure managed by managed by Dr. Kapadia at [facility]. Lives in an extended care facility. 05 20 2022-Patient was sitting up in the bed at the time of evaluation. She appeared somnolent but arousable. Denies any chest pain or shortness of breath. 05/22/22: More alert today.? Does answer some questions but is not oriented.? She denies any chest pain or shortness of breath.? Change furosemide to p.o.. 05/23/2022: Somnolent but appears comfortable. Remains on O2 at 2 L. Systolic blood pressure running low overnight, in the 80s. Not unusual to have low blood pressure. 05/24/2022: Questionable seizure yesterday (foot was twitching). Fed herself breakfast today, now sleeping. Blood pressure still running low, often in the 80s. Sometimes lower, in the 70s. BUN and creatinine are still rising those more slowly. Head CT, done for somnolence and po
[2022-05-28 16:25] LABS: Glucose Point of Care 219 mg/dl (65-105)
[2022-05-28] MEDS: INSULIN ASPART (*BKC) 100 UNITS/ML SUB-Q (17:55)
[2022-05-28] MEDS: MIDODRINE HCL 2.5 MG TABLET 5 MG PO (17:56)
[2022-05-28] MEDS: METOPROLOL SUCCINATE EXT REL 25 MG TABCR PO (21:00)
[2022-05-28] MEDS: PANTOPRAZOLE 40 MG TABLET PO (21:00)
[2022-05-28] MEDS: GABAPENTIN 300 MG CAPSULE PO (21:00)
[2022-05-28 21:34] LABS: Glucose Point of Care 259 mg/dl (65-105)
[2022-05-29] VITALS (7 sets, daily range): BP systolic 92–100; BP diastolic 65–74; PULSE 74–100; RESP 17–20; TEMP 36.1–36.5; O2SAT 96–97
[2022-05-29] MEDS: MEXILETINE HCL 150 MG CAPSULE 300 MG PO (05:14)
[2022-05-29] MEDS: LEVOTHYROXINE SODIUM 25 MCG TABLET PO (05:16)
[2022-05-29 06:43] LABS: Hematocrit 38.8 % (37.0-47.0); Hemoglobin 11.7 g/dL (12.0-15.0); Mean Corpuscular HGB Conc 30.2 g/dl (32-36); Mean Corpuscular Hemoglobin 26.7 pg (26-34); Mean Corpuscular Volume 88.4 fl (80-100); Mean Platelet Volume 11.1 fl (7.4-10.4); Platelet Count Result 168 k/mm3 (150-375); Red Blood Count 4.39 M/mm3 (4.2-5.4); Red Cell Distribution Width 17.7 % (11.5-14.5); White Blood Count 6.3 K/mm3 (4.5-10.0)
[2022-05-29 06:52] LABS: Alanine Aminotransferase 9 U/L (6-35); Albumin Level 2.8 g/dL (3.5-5.1); Alkaline Phosphatase 97 U/L (38-126); Anion Gap 9 mmol/L (8-16); Aspartate Amino Transferase 18 U/L (14-36); Bilirubin,Total 2.1 mg/dL (0.2-1.3); Blood Urea Nitrogen 33 mg/dL (7-17); Calcium 8.3 mg/dL (8.4-10.2); Carbon Dioxide 30 mmol/L (22-30); Chloride 99 mmol/L (98-107); Estimated CRCL calculation 34 ml/min; Estimated Glomerular Filt Rate 40; Glucose 203 mg/dL (65-110); Potassium 3.4 mmol/L (3.4-5.0); Sodium 138 mmol/L (137-145)
[2022-05-29 07:21] LABS: Anion Gap 7 mmol/L (8-16); Blood Urea Nitrogen 33 mg/dL (7-17); Calcium 8.1 mg/dL (8.4-10.2); Carbon Dioxide 32 mmol/L (22-30); Chloride 101 mmol/L (98-107); Estimated CRCL calculation 34 ml/min; Estimated Glomerular Filt Rate 40; Glucose 207 mg/dL (65-110); Phosphorus 2.4 mg/dL (2.5-4.5); Potassium 3.4 mmol/L (3.4-5.0); Sodium 140 mmol/L (137-145)
--- NOTE | 2022-05-29 07:50 | PCOTNOTE ---
Patient is being discharged from therapy services today. Patient going hospice.
[2022-05-29 08:11] LABS: Glucose Point of Care 181 mg/dl (65-105)
[2022-05-29] MEDS: METOPROLOL SUCCINATE EXT REL 25 MG TABCR PO (09:21)
[2022-05-29] MEDS: APIXABAN 5 MG TABLET PO (09:21)
[2022-05-29] MEDS: MIDODRINE HCL 2.5 MG TABLET 5 MG PO (09:22)
[2022-05-29] MEDS: SACUBITRIL/VALSARTAN 12-13 MG TABLET 1 TAB PO (09:22)
[2022-05-29] MEDS: ATORVASTATIN 40 MG TABLET PO (09:22)
[2022-05-29] MEDS: LACTULOSE 20 GM/30 ML UDC PO (09:22)
[2022-05-29] MEDS: CITALOPRAM HYDROBROMIDE 20 MG TABLET PO (09:22)
--- NOTE | 2022-05-29 10:32 | PM.DS ---
DS: Admitting Diagnosis Discharge Date 05/29/2022 Admitting Diagnosis Looks Puffy according to family DS: Discharge Diagnosis Discharge Diagnosis (1) Acute exacerbation of CHF (congestive heart failure): Qualifiers: Heart failure type: combined systolic and diastolic Qualified Code(s): I50.43 - Acute on chronic combined systolic (congestive) and diastolic (congestive) heart failure Code(s): I50.9 - Heart failure, unspecified Status: Acute Assessment and Plan: Patient brought to the emergency room because she looked ?puffy?. EKG showed AFib with controlled rate with nonspecific ST T wave changes. Echo in December 2021 showing EF 20-25%, moderate MR, severe TR. CXR showing small pleural effusions on admission. She was started on IV Lasix. BNP was 8100 with repeat at 13K. Repeat CXR showing left pleural effusion and scattered opacities. Furosemide IV and then Spironolactone held due to BOO and HoTN. We continued Entresto but dose cut back. Renal function improving. Cardiology and Nephrology following and appreciate their input. Thoracentesis ordered but held due to elevated INR. Repeat CXR 05/25 showing improving pulmonary edema and moderate left pleural effusion. Pleural effusion most likely related to CHF. Thoracentesis canceled at this time since she does not have a oxygen requirement and feel the risk outweighs the benefit at this point. BP still drops at times despite Midodrine. Family have decided on hospice at the facility. Hospice team to decide on final medications (2) Seizure: Code(s): R56.9 - Unspecified convulsions Status: Acute Assessment and Plan: This is questionable but if so, then new onset. Per group home nurse, patient has not been on any benzodiazepines or antiepileptic medications in the past. CT head showed no acute intracranial process but shows chronic bilateral infarcts and atrophy. Patient was NOT started on antiepileptic medications. She is chronically on gabapentin which was continued. No MR due to that she has a ICD. EEG completed Pt going to facility on hospice. (3) BOO (acute kidney injury): Code(s): N17.9 - Acute kidney failure, unspecified Status: Acute Assessment and Plan: Baseline creatinine is 1.0-1.4. Creatinine elevated on admission at 2.1 that improved initially before climbing again to 2.4. No exposure to contrast. Creat is 1.3 today I have restarted pts spironolactone and lasix. Pt is discharging on hospice. (4) Chronic a-fib: Code(s): I48.20 - Chronic atrial fibrillation, unspecified Status: Chronic Assessment and Plan: Rate controlled on mexiletine and metoprolol. Eliquis resumed. Continue current medications. Pt is discharging on hospice. (5) Diabetes mellitus: Code(s): E11.9 - Type 2 diabetes mellitus without complications Status: Chronic Assessment and Plan: A1c 7.9. The patient's blood glucose was reviewed on 05/28 Glucose remains reasonably well controlled. Pt is discharging on hospice. (6) Hyperlipidemia: Code(s): E78.5 - Hyperlipidemia, unspecified Status: Chronic Assessment and Plan: Total creatinine kinase is normal. She has elevated bilirubin level but AlkPhos, AST and ALT are normal. Bili mostly direct but still suspect Gilbert. Continue Lipitor. Pt is discharging on hospice. (7) Hypothyroidism: Code(s): E03.9 - Hypothyroidism, unspecified Status: Acute Assessment and Plan: TSH normal. Continue home levothyroxine. Pt is discharging on hospice. (8) Thrombocytopenia: Code(s): D69.6 - Thrombocytopenia, unspecified Status: Acute Assessment and Plan: Patient with mild thrombocytopenia at times but stable.Pt is discharging on hospice. DS: Summary Hospital Course Hospital Course: Patient brought to the emergency room because she looked ?puffy?. EKG showed AFib with controlled rate w
[2022-05-29] MEDS: BUMETANIDE INJ 1 MG/4 ML VIAL IV PUSH (11:07)
--- NOTE | 2022-05-29 11:24 | PM.PNCARD ---
Progress Note: A&P Assessment and Plan (1) Acute exacerbation of CHF (congestive heart failure): Qualifiers: Heart failure type: combined systolic and diastolic Qualified Code(s): I50.43 - Acute on chronic combined systolic (congestive) and diastolic (congestive) heart failure Code(s): I50.9 - Heart failure, unspecified Status: Acute Assessment and Plan: Patient with CHF with severely reduced ejection fraction with history of ? nonischemic cardiomyopathy. Home meds include metoprolol succinate, sacubitril / valsartan. furosemide 40 mg b.i.d. and spironolactone on hold due to BOO and hypotension. Monitor BP. Had initially reduced Entresto but will increase as BP permits. Renal function improved, IV Bumex per Nephrology. Continue midodrine increase to 5 mg t.i.d. to help support BP and tolerate more optimal medical therapy. Limited options overall given clinical picture and underlying dementia. She is not a good surgical candidate in general even if warranted for valvular heart disease. (2) Cardiomyopathy: Qualifiers: Cardiomyopathy type: unspecified Qualified Code(s): I42.9 - Cardiomyopathy, unspecified Code(s): I42.9 - Cardiomyopathy, unspecified Status: Chronic Assessment and Plan: Severe LV systolic dysfunction EF 20-25% by echocardiogram December 2021. Not able to tolerate optimal medical therapy due to hypotension. She has a history of moderate MR and severe TR with mild pulmonary hypertension. Medical management as described above. (3) BOO (acute kidney injury): Code(s): N17.9 - Acute kidney failure, unspecified Status: Acute Assessment and Plan: Acute renal insufficiency possibly related to low cardiac output and perhaps hypotension. BUN elevated and creatinine slightly improved. Continue to monitor Spironolactone on hold Hold Entresto of systolic blood pressures less than 95 mmHg. Add midodrine as above for support of BP. Continue daily BMP (4) Chronic a-fib: Code(s): I48.20 - Chronic atrial fibrillation, unspecified Status: Chronic Assessment and Plan: Continue metoprolol succinate and apixaban. Monitor for bleeding. H&H stable. Eliquis 5 mg b.i.d.. Monitor For bleeding. (5) AICD (automatic cardioverter/defibrillator) present: Code(s): Z95.810 - Presence of automatic (implantable) cardiac defibrillator Status: Acute Assessment and Plan: Stable no acute issues. (6) Confusion: Code(s): R41.0 - Disorientation, unspecified Status: Acute Assessment and Plan: Management per primary team and questionable seizure. She is on seizure precautions. Subjective Date/time seen: 05/29/22 11:25 Cardiology follow up for CHF Interval history: Follow-up for CHF. H/O nonischemic cardiomyopathy with an EF of 20-25%, moderate MR and severe TR, persistent atrial fibrillation, ICD, stroke, diabetes, and chronic heart failure managed by managed by Dr. Kapadia at [facility]. Lives in an extended care facility. 05 20 2022-Patient was sitting up in the bed at the time of evaluation. She appeared somnolent but arousable. Denies any chest pain or shortness of breath. 05/22/22: More alert today.? Does answer some questions but is not oriented.? She denies any chest pain or shortness of breath.? Change furosemide to p.o.. 05/23/2022: Somnolent but appears comfortable. Remains on O2 at 2 L. Systolic blood pressure running low overnight, in the 80s. Not unusual to have low blood pressure. 05/24/2022: Questionable seizure yesterday (foot was twitching). Fed herself breakfast today, now sleeping. Blood pressure still running low, often in the 80s. Sometimes lower, in the 70s. BUN and creatinine are still rising those more slowly. Head CT, done for somnolence and possible sz, showed no acute findings but old strokes. 05/25/2022: Patient more apryl
[2022-05-29 11:36] LABS: Glucose Point of Care 176 mg/dl (65-105)
--- NOTE | 2022-05-29 12:37 | PM.PNNEP ---
Progress Note: A&P Additional Plan 1. Patient most likely does have chronic kidney disease due to chronic pre renal azotemia because of her poorly functioning heart. 2. Patient has had a recent rise in her creatinine. Renal ultrasound shows Bosniak 2 cyst. UA showed hematuria and pyuria. Urine protein to creatinine ratio was only 160. Urine electrolytes show pre renal azotemia with a low fractional excretion of sodium. this may be due to pre renal azotemia from her poorly functioning heart and low blood pressure Entresto is now at a lower dose. Yesterday she received a single dose of Bumex. Her creatinine is same. Will increase the diuretics. 3. The patient has congestive cardiomyopathy with a very low cardiac output and also has tricuspid regurgitation. She has an AICD. 4. The patient has chronic low blood pressure. It ranges in the 80-110 range.TSH is normal. Cortisol stim is normal 5. Status post CVA. No new symptoms. Subjective Date/time seen: 05/29/22 12:37 Interval history: Patient is a little more awake today. Still not eating very much. No shortness of breath. Exam Narrative: WDWN in NAD skin no rash or subcu nodules head ncat lungs Decreased breath sounds at the bases cor reg no rub abd BS+ nontender and soft ext 2+ edema bilaterally. Objective Data Vital Signs Vital Signs: Vital Signs - 24 hr 05/28/22 13:59 05/28/22 16:26 05/28/22 20:00 Temperature 36.6 C 36.6 C Pulse Rate 92 66 97 Respiratory Rate 16 16 Blood Pressure 100/74 94/64 L Pulse Oximetry 95 95 Oxygen Delivery 05/28/22 20:59 05/28/22 21:00 05/28/22 23:40 Temperature 36.4 C Pulse Rate 94 94 94 Respiratory Rate 17 Blood Pressure 94/62 L Pulse Oximetry 96 Oxygen Delivery 05/28/22 20:00 05/29/22 03:46 05/29/22 05:14 Temperature 36.5 C Pulse Rate 99 74 Respiratory Rate 18 Blood Pressure 100/74 Pulse Oximetry 96 Oxygen Delivery Room Air 05/29/22 06:16 05/29/22 08:00 05/29/22 09:21 Temperature 36.5 C 36.1 C L Pulse Rate 99 98 97 Respiratory Rate 17 20 Blood Pressure 100/74 92/65 L Pulse Oximetry 96 96 Oxygen Delivery 05/29/22 08:00 Temperature Pulse Rate Respiratory Rate Blood Pressure Pulse Oximetry 96 Oxygen Delivery Room Air Intake/Output Intake/Output: Intake & Output 05/26/22 05/27/22 05/28/22 05/29/22 23:59 23:59 23:59 23:59 Intake Total 660 480 780 Output Total 450 450 750 500 Balance 210 30 30 -500 Meds/Results Medications: Active Medications Generic Name Dose Route Start Last Admin Trade Name Freq PRN Reason Stop Dose Admin Al Hydrox/Mg Hydrox/Simethicone 30 ml 05/16/22 09:34 Mag Hydrox/Al Hydrox/Simeth 30 Ml Udc PO QID PRN Dyspepsia Apixaban 5 mg 05/16/22 21:00 05/29/22 09:21 Apixaban 5 Mg Tablet PO 5 mg Q12HR [place] Administration Atorvastatin Calcium 40 mg 05/16/22 09:00 05/29/22 09:22 Atorvastatin 40 Mg Tablet PO 40 mg DAILY [place] Administration Bisacodyl 10 mg 05/16/22 09:34 Bisacodyl 10 Mg Suppository RECTAL DAILY PRN Constipation Bisacodyl 5 mg 05/16/22 09:34 Bisacodyl 5 Mg Tablet Ec PO BID PRN Constipation Bumetanide 1 mg 05/28/22 12:50 05/29/22 11:07 Bumetanide Inj 1 Mg/4 Ml Vial IV PUSH 1 mg BID [place] Administration Citalopram Hydrobromide 20 mg 05/16/22 09:00 05/29/22 09:22 Citalopram Hydrobromide 20 Mg Tablet PO 20 mg DAILY [place] Administration Dextrose 12.5 gm 05/15/22 21:35 Dextrose 50% 25 Gm/50 Ml Syringe IV PUSH PRN PRN Hypoglycemia Protocol Gabapentin 300 mg 05/16/22 21:00 05/28/22 21:00 Gabapentin 300 Mg Capsule PO 06/15/22 20:59 300 mg HS [place] Administration Glucagon 1 mg 05/15/22 21:35 Glucagon For Inj 1 Mg Vial IM PRN PRN Hypoglycemia Protocol Glucose 15 gm 05/15/22 21:35 Glucose Oral Gel 15 Gm Of Glucse In 37.5 Gm Tube PO P
[2022-05-29 13:10] LABS: EDCOVIDSCREEN Negative (Negative)
--- NOTE | 2022-06-01 09:54 | WPDNEUROLOGY ---
Neurology EEG Report General Information Date of Study: 05/25/22 TEST eeg DIAGNOSIS new onset seizures CONDITION OF RECORDING awake and drowsy EEG NUMBER [id number] CLINICAL HISTORY patient is confused and unable to give any history EEG DESCRIPTION background rhythm consists of low voltage 2 to 3 hertz per 2nd delta activity admixed and superimposed by low-voltage 15 to 18 hertz per 2nd beta activity and multiple movement artifacts. Hyperventilation not done. Photic stimulation not done. IMPRESSION Abnormal record due to the absence of normal background rhythm and also due to the presence of bihemispheric delta activity. These abnormalities are suggestive of organic or metabolic encephalopathy or postictal state. Clinical correlation recommended
== END 2022-05-29 16:05 | disposition hospice, home (50) | DRG 291 ==
LOC: ANHED 19:51 → ANH3MEDSUR 21:34
PROVIDERS: Family Medicine; Internal Medicine; Internal Medicine Cardiovascular Disease; Internal Medicine Nephrology; Nurse Practitioner Adult Health; Physician Assistant; Student in an Organized Health Care Education/Training Program; Admitting Provider Student in an Organized Health Care Education/Training Program; Emergency Provider Nurse Practitioner Family; PCP Internal Medicine; Visit Provider Family Medicine
DX: I13.0 Hypertensive heart and chronic kidney disease with heart failure and stage 1 through stage 4 chronic kidney disease, or unspecified chronic kidney disease (principal); I50.43 Acute on chronic combined systolic (congestive) and diastolic (congestive) heart failure; N17.9 Acute kidney failure, unspecified; I48.11 Longstanding persistent atrial fibrillation; Z20.822 Contact with and (suspected) exposure to COVID-19; I42.9 Cardiomyopathy, unspecified; R56.9 Unspecified convulsions; R41.0 Disorientation, unspecified; E11.22 Type 2 diabetes mellitus with diabetic chronic kidney disease; N18.9 Chronic kidney disease, unspecified; E78.5 Hyperlipidemia, unspecified; D69.6 Thrombocytopenia, unspecified; F03.90 Unspecified dementia, unspecified severity, without behavioral disturbance, psychotic disturbance, mood disturbance, and anxiety; E03.9 Hypothyroidism, unspecified; Z95.810 Presence of automatic (implantable) cardiac defibrillator; Z79.4 Long term (current) use of insulin; Z86.73 Personal history of transient ischemic attack (TIA), and cerebral infarction without residual deficits
CPT/HCPCS: 36415; 36600; 70450; 71045; 71046; 76775; 80048; 80053; 80069; 80076; 81001; 82040; 82150; 82375; 82465; 82533; 82550; 82570; 82805; 82947; 82948; 83036; 83050; 83605; 83615; 83735; 83880; 84100; 84155; 84156; 84300; 84311; 84439; 84443; 84478; 84480; 84540; 85025; 85027; 85055; 85610; 87086; 87426; 93005; 95816; 97110; 97161; 97165; 97530; 97535; 99285; A9270; C9803; G0378; J0834; J1815; J1940; J2405; U0003; U0005